=== PATIENT | female | born 1950 | race Caucasian/White ===

== ENCOUNTER 2024-12-04 21:31 | Inpatient (IN) | payer MEDICARE, OTHER, SELFPAY ==
[2024-12-04] VITALS (8 sets, daily range): BP systolic 144–168; BP diastolic 81–108; BMI 27.0
[2024-12-04 14:58] LABS: % Basophils 1.3 % (0-2); % Eosinophils 1.1 % (0-6); % Immature Granulocytes 0.2 % (0-0.5); % Lymphocytes 17.4 % (20.5-51.1); % Monocytes 7.8 % (1.7-9.3); % Neutrophils 72.2 % (42.2-75.2); Absolute Basophils 0.1 10^3/uL (0-0.2); Absolute Eosinophils 0.1 10^3/uL (0-0.7); Absolute Monocytes 0.4 10^3/uL (0.1-0.6); Hematocrit 37.8 % (37.0-47.0); Hemoglobin 11.6 g/dL (12.0-16.0); Mean Corp Hgb Conc. 30.7 g/dL (33.0-37.0); Mean Corpuscular Hgb 27.2 pg (27.0-31.0); Mean Corpuscular Volume 88.7 fL (81.0-99.0); Mean Platelet Volume 9.6 fL (7.4-10.4); Nucleated Red Blood Cells % 0 %; Platelet Count 241 10^3/uL (130-400); Red Blood Cell Count 4.26 10^6/uL (4.20-5.40); Red Cell Dist. Width 16.7 % (11.5-14.5); White Blood Cell Count 5.5 10^3/uL (4.8-10.8)
[2024-12-04 15:26] LABS: ALT (SGPT) 28 U/L (0-35); AST (SGOT) 33 U/L (14-36); Albumin 3.1 g/dl (3.5-5.0); Alkaline Phosphatase 131 U/L (38-126); Blood Urea Nitrogen 39 mg/dl (7-17); Carbon Dioxide 27 mmol/L (22-30); Chloride 103 mmol/L (98-107); Glucose 119 mg/dl (70-99); Sodium 138 mmol/L (135-145); Total Bilirubin 0.6 mg/dl (0.2-1.3); Total Protein 6.1 g/dl (6.3-8.2); eGFR 53.39
[2024-12-04 15:27] LABS: NT-proBNP > 27000 pg/ml; Troponin I 0.054 ng/ml
--- NOTE | 2024-12-04 16:26 | ED.GENMED ---
History of Present Illness
General
Chief Complaint: Swelling
Time Seen by Provider: 12/04/24 15:50
History of Present Illness
History of Present Illness:
Patient presents to the emergency department with edema and shortness of breath. Symptoms have been worsening over the past week. Patient notes she has had a 25 pound weight gain during this time. She notes swelling in bilateral lower extremities
as well as her wrist and abdomen. She reports dyspnea on exertion and orthopnea. She reports falling after climbing the stairs about 2 weeks ago. She she notes that she lost her equilibrium and fell striking her face. There is no loss of
consciousness. She reports adherence to her diuretic
Phy Exam
Physical Exam
Physical Exam:
GENERAL APPEARANCE: NAD, scattered bruising
EYES lids/conjunctiva normal, periorbital echymosis
EARS/NOSE/THROAT Mucous membranes moist, uvula midline without oral pharyngeal erythema, exudate or swelling
HEAD/NECK +JVD
RESPIRATORY respiratory effort normal, speaks in full sentences, no accessory muscle use. bilateral basilar rales
CARDIAC Regular rate and rhythm, edema to lower extremities/wrists/hands/abdomen
ABDOMINAL Soft, distended. non tender, no bruising
MUSCLES/EXTREMITIES bruising to R wrist, there are scattered sores to bilateral lower ext, dressing is clean but weeping wounds
SKIN Warm, pink and dry. No rashes
NEUROLOGICAL Speech is clear and appropriate. Normal level of consciousness. 5/5 strength in all extremities.
PSYCH Normal mood and affect. Judgement/competence is appropriate
Scores
Heart Failure Risk
Heart Failure Risk Score: Yes
History of Stroke or TIA: No
History of intubation for respiratory distress: No
Heart rate on ED arrival >/= 110: No
SaO2 <90% on arrival on room air: No
HR >/=110 during 3min walk test (or too ill to perform test): No
ECG has acute ischemic changes: No
Urea >/=12mmol/L (BUN 33.6mg/dL): Yes
Serum CO2>/=35mmol/L: No
Troponin I or T elevated to SD Level (0.4mg/dL): Yes
NT-proBNP >/=5,000ng/L (5,000pg/ml): Yes
HF Risk Score: 4
Admission Status: HIGH RISK 26.1% Consider SNF treatment or admission to hospital
Course
Orders/Labs/Results
Orders:
Orders
12/04/24 14:41
Electrocardiogram (*1) Urgent
Reason for Study: Shortness of Breath
12/04/24 14:42
EKG- Treatment ONCE
12/04/24 14:49
Complete Blood Count/With Diff Urgent
Comprehensive Metabolic Panel Urgent
NT-proBNP Urgent
Troponin I Urgent
12/04/24 16:12
CR Chest - 2 Views Urgent
Comment:
Reason For Exam: chf
12/04/24 16:24
Furosemide [Lasix] 60 mg IV NOW STA
12/04/24 16:25
CT Head W/o Iv Contrast Urgent
Comment:
Reason For Exam: trauma
12/04/24 16:26
CR Wrist - Right Min 3 Views Urgent
Comment:
Reason For Exam: trauma
12/04/24 20:52
Admit/Transfer Patient As Directed
Co-Sign Provider:
Level of Care: Inpatient admission
Assign to:: Telemetry
Physician / Group: [email or web address]
Diagnosis: acute CHF type unknown, Volume overload
Reason for Telemetry: Acute Heart Failure
Date to Stop Telemetry: 12/07/24
Time to Stop Telemetry: 11:00
Reason for Hospitalization: acute CHF type unknown, Volume overload
Expected length of stay greater than two midnights?: Yes
ELOS- Estimated Length of Stay in days: 3
I certify the patient meets the requirements for IP care: Yes
12/04/24 20:56
Code Status As Directed
Resuscitation Status: Full Code
12/04/24 21:03
Gabapentin [Neurontin] 100 mg PO NOW STA
Gabapentin [Neurontin] 800 mg PO NOW STA
12/07/24 11:00
DC Protocol for Telemetry ONCE
Abnormal Lab Results
12/04/24
14:49
Hgb 11.6 L g/dL
(12.0-16.0)
MCHC 30.7 L g/dL
(33.0-37.0)
RDW 16.7 H %
(11.5-14.5)
Absolute Lymphs (auto) 1.0 L 10^3/uL
(1.2-3.4)
Lymphocytes % 17.4 L %
(20.5-51.1)
BUN 39 H mg/dl
(7-17)
Creatinine 1.1 H mg/dL
(0.6-1.0)
Glucose 119 H mg/dl
(70-99)
Calcium 8.0 L mg/dl
(8.4-10.2)
Alkaline Phosphatase 131 H U/L
(38-126)
Troponin I 0.054 H* ng/ml
Total Protein 6.1 L g/dl
(6.3-8.2)
Albumin 3.1 L g/dl
(3.5-5.0)
12/04/24 14:49
12/04/24 14:49
Vital Signs
Initial and Last Documented VS:
Initial Vital Signs
Temp Pulse Resp BP Pulse Ox
97.7 F 76 18 157/94 96
12/04/24 14:36 12/04/24 14:36 12/04/24 14:36 12/04/24 14:36 12/04/24 14:36
Last Documented Vital Signs
Temp Pulse Resp BP Pulse Ox
97.7 F 83 19 155/95 96
12/04/24 14:36 12/04/24 21:00 12/04/24 21:00 12/04/24 21:00 12/04/24 20:05
*Critical Care Note
Total Time (30-74mins, 75-104mins- exclusive of procedures): Not Applicable
ED Attending Note
ED Attending Note
ED Attending Note:
Patient presents with significant volume overload likely in the setting of congestive heart failure. She has elevated troponin and BNP. She has no chest pain and there is no evidence of prescribed Sgarbossa's criteria on her EGD. That this is
demand related of heart failure unclear precipitating factor. She did have a fall [address] scan head to rule out intracranial trauma
-
Portions of this chart may have been created with voice recognition software.� Occasional wrong word or��sound alike� substitutions may have occurred due to the inherent limitations of voice recognition software.
Discharge Plan
Departure
Patient Disposition: Admit
Date of Disposition: 12/04/24
Time of Disposition: 20:12
Presentation/result/management discussed w/ accepting MD/DO: Hospitalist
Discharge Problem:
Acute exacerbation of CHF (congestive heart failure)
Interventions
Interventions:
*Risk Screen - Suicide Last Done: 12/04/24 14:36
*General Assessment Last Done: 12/04/24 15:53
*Neglect/Abuse Screening Last Done: 12/04/24 15:54
ED- Fall Risk Assessment Last Done: 12/04/24 21:28
*ED COVID-19 Vaccine History Last Done: 12/04/24 15:53
*Nursing Disposition Last Done: 12/04/24 21:28
ED- Cardiac Assessment Last Done: 12/04/24 15:54
ED- Pulmonary Assessment Last Done: 12/04/24 15:53
ED-Skin Assessment Last Done: 12/04/24 15:53
Discharge Date and Time
Discharge Date/Time: 12/04/24 21:51
[2024-12-04] MEDS: LASIX 60 MG IV (16:42)
--- NOTE | 2024-12-04 20:26 | PHANOTE ---
WebMD(12/04/24)-Patient has medication list, but states she does not take everything as prescribed, and has even stopped some medications on the list. Unsure of which medications are not currently taken, left unconfirmed all medications I did
not see filled within the last year.
--- NOTE | 2024-12-04 20:46 | HPS.HSE ---
Family Physician
-
Family Physician: Curry Regalado
Chief Complaint
-
worsening edema and shortness of breath
History of Present Illness
74F HX HTN, DM seen at ER :
- evaluation for worsening edema and shortness of breath
- associated with 25 pound weight gain during this time
- swelling in bilateral lower extremities as well as her wrist and abdomen
- dyspnea on exertion and orthopnea.
- reports falling after climbing the stairs about 2 weeks ago.
- she lost her equilibrium and fell striking her face.
- She reports adherence to her diuretic
Medical History
Past Medical History
Past Medical History: Reports HTN, NIDDM and Psychiatric (depression )
Past Surgical History: Reports Other
Social History
Tobacco: Non-smoker
Alcohol: None
Family History
Family History: Not pertinent
Allergies / Home Medications
Allergies reflects when Allergies were last updated in [facility] [employer].
Home Medications with original date entered in [facility] [employer]
Allergy/Medication List:
Allergies
Allergy/AdvReac Type Severity Reaction Status Date / Time
bacitracin Allergy Itching Verified 12/04/24 14:38
banana Allergy Anaphylaxis Verified 12/04/24 14:38
fentanyl Allergy Itching Verified 12/04/24 14:38
iodine Allergy Itching Verified 12/04/24 14:38
latex Allergy Itching Verified 12/04/24 14:38
melon Allergy Anaphylaxis Verified 12/04/24 14:38
polymyxin B Allergy Itching Verified 12/04/24 14:38
Sulfa (Sulfonamide Allergy Itching Verified 12/04/24 14:38
Antibiotics)
sulfamethoxazole Allergy Itching Verified 12/04/24 14:38
trimethoprim Allergy Itching Verified 12/04/24 14:38
vancomycin Allergy Itching Verified 12/04/24 14:38
Home Medications
citalopram 20 mg tablet 20 mg PO DAILY ##30 04/28/16
ergocalciferol (vitamin D2) 1,250 mcg (50,000 unit) capsule 50,000 units PO HERMAN ##4 04/28/16
sitagliptin phosphate 100 mg tablet (Januvia) 100 mg PO DAILY ##30 04/28/16
acetaminophen 650 mg tablet,extended release (Tylenol Arthritis Pain) 1,300 mg PO Q8H 12/04/24
albuterol sulfate 90 mcg/actuation aerosol inhaler 2 puff inhalation R Q6HPRN PRN sob 12/04/24
ascorbic acid (vitamin C) 500 mg tablet (Vitamin C) 500 mg PO DAILY 12/04/24
budesonide 0.5 mg/2 mL suspension for nebulization (Pulmicort) 0.5 mg inhalation R Q6HPRN PRN sob 12/04/24
bumetanide 1 mg tablet 1 mg PO BID 12/04/24
calcium carbonate (Calcium 600) 600 mg PO BID 12/04/24
carvedilol 3.125 mg tablet 3.125 mg PO BID 12/04/24
cephalexin 500 mg capsule 500 mg PO TID 12/04/24
cholecalciferol (vitamin D3) 25 mcg (1,000 unit) tablet (Vitamin D3) 25 mcg PO DAILY 12/04/24
cyclosporine 0.05 % eye drops in a dropperette (Restasis) 1 drops BOTH EYES BID 12/04/24
dicyclomine 10 mg capsule 10 mg PO ACHS 12/04/24
doxycycline hyclate 100 mg tablet 100 mg PO BID 12/04/24
esomeprazole magnesium 40 mg capsule,delayed release (Nexium) 40 mg PO DAILY 12/04/24
fluticasone propionate 50 mcg/actuation nasal spray,suspension 1 spray intranasal DAILYPRN PRN allergies 12/04/24
gabapentin 800 mg tablet 800 mg PO QID 12/04/24
levocetirizine 5 mg tablet (Xyzal) 5 mg PO HS 12/04/24
loperamide 2 mg capsule 2 mg PO Q4HPRN PRN diarrhea 12/04/24
losartan 100 mg tablet 100 mg PO DAILY 12/04/24
magnesium oxide 250 mg PO DAILY 12/04/24
omeprazole magnesium 20 mg tablet,delayed release (Prilosec OTC) 20 mg PO DAILY 12/04/24
ondansetron HCl 4 mg tablet 4 mg PO Q8HPRN PRN nausea 12/04/24
sacubitril 49 mg-valsartan 51 mg tablet (Entresto) 1 tab PO DAILY 12/04/24
tizanidine 2 mg tablet 2 mg PO TIDPRN PRN muscle spasms 12/04/24
tolterodine 2 mg capsule,extended release 24 hr 2 mg PO BID 12/04/24
Review of Systems
-
EENT: Reports No Symptoms
Respiratory: Reports No Symptoms
Cardiac: Reports See HPI
Abdomen/GI: Reports No Symptoms
: Reports No Symptoms
Musculoskeletal: Reports See HPI and Edema
Skin: Reports No Symptoms
Neurological: Reports No Symptoms
Endocrine: Reports No Symptoms
Hematologic/Lymphatic: Reports No Symptoms
Psych: Reports No Symptoms
Physical Exam
Vital Signs
Vital Signs
Temp Pulse Resp BP Pulse Ox
97.7 F 79 20 163/89 96
12/04/24 14:36 12/04/24 20:01 12/04/24 20:01 12/04/24 20:01 12/04/24 20:05
Physical Exam
General: Well Developed, Well Nourished and No Apparent Distress
HEENT: NormoCephalic, Moist mucous membranes and Atraumatic
Respiratory: Clear
Cardiac: S1/S2 and Regular Rhythm; No Murmur or Rub
GI: Soft, Non Tender, Non Distended and Normal Bowel Sounds; No Organomegaly
Rectal: Deferred by Provider
Musculoskeletal: Edema, Right Upper Extremity and Edema, Left Lower Extremity
Skin: No Rash
Neuro: Nonfocal/grossly intact
Laboratory Results
-
12/04/24 14:49
12/04/24 14:49
Laboratory Results
Total Bilirubin 0.6 mg/dl (0.2-1.3) 12/04/24 14:49
AST 33 U/L (14-36) 12/04/24 14:49
ALT 28 U/L (0-35) 12/04/24 14:49
Alkaline Phosphatase 131 U/L (38-126) H 12/04/24 14:49
Troponin I 0.054 ng/ml H* 12/04/24 14:49
Data Reviewed
-
Medical Tests (Nuc Med, Echo, EKG etc): Report Reviewed by me
Lab Data: Labs Reviewed by me
Impression/Plan
-
Reviewed VS: BP 165/90 96% on RA
Data
Hgb 11.6
BUN 39
Cr 1.1
eGFR 54
TPNI 0.054
proBNP > 27 K
NO PRIOR hospitalist admission:
ASSESSMENT & PLAN
Acute CHF type unknown
- cont. IV lasix 40 BID
- cont Entresto
- cont. Losartan
- daily Wt, IOS
- Dailt BMP
- ECHO in AM
- DCA acrd consult
EZEKIEL suspect cardiorenal syndrome
- Observe Cr with IV Diuresis
DMT2
- cont. Januvia
- add IS low
DVT Px: LMWH
Code: Full
IP TLM
[2024-12-04] MEDS: NEURONTIN 800 MG PO (21:22)
[2024-12-04] MEDS: NEURONTIN 100 MG PO (21:22)
--- NOTE | 2024-12-04 22:00 | PTCARENOTE ---
Pt arrived to [facility] from ED, pullover assist x3. Pt is AAOx3, bed alarm placed d/t recent fall history. Daughter Linh and patient updated on plan of care at bedside. VSS. Pt had a purewick in the ED and is requesting another one to be placed.
This RN educated the pt on the risk of developing a UTI and attempted to encourage the pt to use a bedpan instead since she is capable of turning, or attempting to ambulate to a bedside commode since pt states she knows when she needs to void 'most
of the time'. Pt is refusing to use a bedpan and says that 'you don't get a UTI from a PureWick, that's the internal catheters' despite educating the pt that this is incorrect and she can develop a UTI with a purewick. Purewick placed by this RN
d/t pt's refusal to use a bedpan or BSC at this time.
--- NOTE | 2024-12-04 22:30 | PTCARENOTE ---
Patient's dashboard indicates that the patient has a history of MRSA. This RN discussed history of MRSA with patient, patient reports that she does not remember having a history of MRSA but that 'maybe I did have it, I don't remember'. This RN
notified nursing supervisor contingents Nery Holley who reports that patient had a negative swab in 2016 and does not have a history of MRSA. Will keep patient under standard precautions.
[2024-12-04 23:48] LABS: Glucose - Point of Care 171 mg/dl (70-99)
[2024-12-05] MEDS: TYLENOL 1000 MG PO ×3 (00:10→17:20)
[2024-12-05] MEDS: KEFLEX 500 MG PO ×4 (00:10→21:58)
[2024-12-05] MEDS: VIBRAMYCIN 100 MG PO ×3 (00:21→20:55)
[2024-12-05 03:05] VITALS: BP 147/84
[2024-12-05 06:00] VITALS: BMI 26.8
[2024-12-05 07:19] LABS: Hematocrit 35.5 % (37.0-47.0); Hemoglobin 11.2 g/dL (12.0-16.0); Mean Corp Hgb Conc. 31.5 g/dL (33.0-37.0); Mean Corpuscular Hgb 27.2 pg (27.0-31.0); Mean Corpuscular Volume 86.2 fL (81.0-99.0); Mean Platelet Volume 10.2 fL (7.4-10.4); Platelet Count 225 10^3/uL (130-400); Red Blood Cell Count 4.12 10^6/uL (4.20-5.40); Red Cell Dist. Width 16.6 % (11.5-14.5); White Blood Cell Count 5.7 10^3/uL (4.8-10.8)
[2024-12-05 07:30] VITALS: BP 160/89
[2024-12-05 07:41] LABS: Blood Urea Nitrogen 43 mg/dl (7-17); Carbon Dioxide 25 mmol/L (22-30); Chloride 108 mmol/L (98-107); Estimated Creatinine Clearance 36 ml/min; Glucose 122 mg/dl (70-99); Potassium 4.2 mmol/L (3.5-5.1); Sodium 139 mmol/L (135-145); eGFR 43.69
[2024-12-05 07:44] LABS: Glucose - Point of Care 137 mg/dl (70-99)
[2024-12-05 09:08] LABS: Glycohemoglobin (HgbA1c) 7.1 % (4.0-5.6)
[2024-12-05 09:53] LABS: Troponin I 0.065 ng/ml
[2024-12-05] MEDS: NOVOLOG FLEXPEN-LOW RESISTANCE SC ×2 (10:32→17:08)
[2024-12-05] MEDS: LASIX 40 MG IV ×3 (10:38→17:15)
[2024-12-05] MEDS: FLUSH (NSS) 1 FLUSH IV ×2 (10:39→17:17)
[2024-12-05] MEDS: JANUVIA 100 MG PO (10:39)
[2024-12-05] MEDS: NEURONTIN 300 MG PO ×3 (10:39→21:57)
[2024-12-05] MEDS: MAGNESIUM OXIDE 250 MG PO (10:40)
[2024-12-05] MEDS: PROTONIX 40 MG PO (10:40)
[2024-12-05] MEDS: CELEXA 20 MG PO (10:41)
[2024-12-05] MEDS: COREG 3.125 MG PO ×2 (10:42→20:55)
[2024-12-05] MEDS: BENTYL PO (10:43)
[2024-12-05] MEDS: ENTRESTO 49 MG/51 MG 1 TAB PO (10:47)
[2024-12-05] MEDS: RESTASIS 0.05% OPHTHALMIC EMULSION 1 DROPS BOTH EYES ×2 (10:48→20:55)
[2024-12-05 11:00] VITALS: BP 158/94
--- NOTE | 2024-12-05 11:40 | W.PN.HOSP.TC ---
Today's Communication/Plan
-
Monitor vitals
See plan
Continue with IV diuresis
Monitor renal function
Discussed with daughter over the phone
PT/OT
Echo
Will need ICD interrogated
Cardiology following
Assessment / Plan
Assessment / Plan
General: Well Developed, Well Nourished and No Apparent Distress
HEENT: NormoCephalic, Moist mucous membranes and Atraumatic
Respiratory: Clear
Cardiac: S1/S2 and Regular Rhythm; No Murmur or Rub
GI: Soft, Non Tender, Non Distended and Normal Bowel Sounds
Musculoskeletal: Edema, Right Upper Extremity and Edema, Left Lower Extremity
Neuro: Nonfocal/grossly intact
Suspect acute on chronic CHF, unclear etiology. Unknown EF
Continue with IV Lasix
Continue Entresto
Continue Coreg
Per patient she was on Bumex daily at home
Patient is a poor historian
Will need to interrogate ICD device, per patient he was placed few years ago
Check echo
she follows with Dr Willis from [facility] cardiology
Renal insufficiency
per daughter she does have CKD stage 3b; on 11/19 cr was 1.04 and february of 2023 it was 1.3
Monitor renal function
Elevated troponin, likely secondary to nonischemic myocardial injury
Continue to trend troponin
Monitor
hx if ICD in 2022 at [place]
cardiology to interrogate device
recent LE cellulitis
on keflex and doxy; last day 12/07
GERD
Protonix
Diabetes mellitus
Insulin sliding scale, Accu-Cheks
a1C 7.1
Depression
Continue Celexa
DVT prophylaxis
Lovenox
Full code
I spent a total of 52 minutes with the patient or on the floor. More than 50% of this time involved counseling and coordination of care.
Anticipated Discharge: > 48 hours
Subjective/Interval History
-
Date of Service: December 05, 2024
denies chest pain
Objective Data
-
Labs:
Laboratory Results
12/05/24
06:46
WBC 5.7
Hgb 11.2 L
Hct 35.5 L
Plt Count 225
Sodium 139
Potassium 4.2
Chloride 108 H
Carbon Dioxide 25
BUN 43 H
Creatinine 1.3 H
Glucose 122 H
Calcium 8.0 L
Vital Signs:
Vital Signs
Temp Pulse Resp BP Pulse Ox
98.6 F 74 16 160/89 94
12/05/24 07:30 12/05/24 07:30 12/05/24 07:30 12/05/24 07:30 12/05/24 07:30
I&O
12/04/24 12/05/24 12/06/24
06:59 06:59 06:59
Intake Total 480 / 480
Output Total 1820 / 1820
Balance -1340 / -1340
[2024-12-05 11:46] VITALS: BMI 26.8
[2024-12-05 11:51] LABS: Glucose - Point of Care 229 mg/dl (70-99)
[2024-12-05] MEDS: BENTYL 10 MG PO ×3 (12:29→21:57)
--- NOTE | 2024-12-05 12:50 | CON.CAR ---
Addendum entered and electronically signed by Jimena Thrasher MD 12/05/24 16:45:
I saw and examined the patient.
The Digital Publishing Specialist's note was reviewed and I agree with the note.
Comment: Discussed with patient and her daughter at great length at the bedside. Usually followed at [place]. She presents with heart failure with reduced ejection fraction and volume overload. According to the patient she does not have coronary
artery disease but does not recall ischemic assessment (does not recall cath or stress test). Records pending. She tells me that about a month ago she was seen by her usual ticket broker at [place] and they wanted to admit her to the hospital for
volume overload but she declined. She feels her weight is up at least 20 pounds and she has significant volume overload/anasarca. She tells me her ejection fraction has been decreased previously. We have requested most recent records including
echo. It appears that recently losartan was changed to Entresto. She previously stopped SGLT2 inhibitor because of 'eye dryness'. She does not appear to be on Aldactone.
Echocardiogram today with ejection fraction similar to 01/2024 25 to 30% at best.
Heart failure with reduced ejection fraction, acute on chronic with severe volume overload.
Continue IV Lasix but will give another 40 mg of IV Lasix now.
Follow input/output/daily weights. Heart failure team consult.
Continue carvedilol and Entresto. Eventually consider Aldactone
Sodium and fluid restricted diet
Once euvolemic consider right and left heart catheterization there is no clear evidence of prior ischemic assessment and want to rule out ischemic etiology of cardiomyopathy (interestingly her mother had heart failure)
Biventricular ICD device interrogation stable with no arrhythmias but significant volume overload
Recent fall not arrhythmia related healing bruising on her face defer to hospitalist service
Diabetes treatment per primary service. Eventually reassess as to whether she would be agreeable to SGLT2 inhibitor
Watch telemetry.
Eventual sleep apnea testing
Original Note:
Consultation
Consultation Request
Date/Time Consultation Performed: 12/05/24
Requesting Provider: Dr. Alvarez
Performing Provider: Essie Hughes PA-C for Dr. Jimena Thrasher
Reason for Consultation: CHF
Medical History
-
Chief Complaint: SOB, weight gain
History of Present Illness:
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
overload. By review of outpatient notes, her primary ticket broker had started her on bumetanide, Jardiance, and was transition from losartan to Entresto. She stopped taking Jardiance due to eye dryness. The beginning of November she had an
episode where she fell after coming up the stairs into the kitchen and bruised her face. She denies loss of consciousness with the event. She reports weight gain of 25 pounds with significant bilateral lower extremity edema with weeping,
orthopnea. At office visit 2 her Bumex dose was increased to 1 mg twice daily, however patient tells me she has only been taking 1 mg daily. In office visit 2 she was recommended going to the emergency room but she refused. By last
echocardiogram 02/02/2024, EF 20 to 25% with moderate MR, moderate TR, PAP 55 to 60 mmHg. proBNP on arrival greater than 27,000. Cardiology consulted for assistance with CHF management.
PMH:
Chronic heart failure with reduced EF
CKD stage III
High-grade AV block s/p PPM
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
Hypertension
Hyperlipidemia
Tke-xfbztwy-wjnnwhgfa diabetes type 2
Neuropathy
GERD
Past Medical History
Past Medical History: Other (in HPI)
Social History
Tobacco: Former Smoker
Living: Alone
Employment: Retired
Family History
Family History: Reviewed & Not Pertinent
Allergies / Home Medications
Allergy/AdvReac Type Severity Reaction Status Date / Time
coconut Allergy Severe Anaphylaxis Verified 12/04/24 22:41
kiwi Allergy Severe Anaphylaxis Verified 12/04/24 22:41
bacitracin Allergy Itching Verified 12/04/24 14:38
banana Allergy Anaphylaxis Verified 12/04/24 14:38
fentanyl Allergy Itching Verified 12/04/24 14:38
iodine Allergy Itching Verified 12/04/24 14:38
latex Allergy Itching Verified 12/04/24 14:38
melon Allergy Anaphylaxis Verified 12/04/24 14:38
polymyxin B Allergy Itching Verified 12/04/24 14:38
Sulfa (Sulfonamide Allergy Itching Verified 12/04/24 14:38
Antibiotics)
sulfamethoxazole Allergy Itching Verified 12/04/24 14:38
trimethoprim Allergy Itching Verified 12/04/24 14:38
vancomycin Allergy Itching Verified 12/04/24 14:38
�Medication �Instructions �Recorded �Confirmed �Type
citalopram 20 mg tablet 20 mg PO DAILY ##30 04/28/16 12/05/24 Rx
ergocalciferol (vitamin D2) 1,250 50,000 units PO HERMAN ##4 04/28/16 Rx
mcg (50,000 unit) capsule
sitagliptin phosphate 100 mg 100 mg PO DAILY ##30 04/28/16 12/05/24 Rx
tablet (Januvia)
acetaminophen 650 mg 1,300 mg PO Q8H Pain 12/04/24 12/04/24 History
tablet,extended release (Tylenol
Arthritis Pain)
albuterol sulfate 90 mcg/actuation 2 puff inhalation R Q6HPRN PRN sob 12/04/24 12/04/24 History
aerosol inhaler
ascorbic acid (vitamin C) 500 mg 500 mg PO DAILY Supplement 12/04/24 12/04/24 History
tablet (Vitamin C)
budesonide 0.5 mg/2 mL suspension 0.5 mg inhalation R Q6HPRN PRN sob 12/04/24 12/04/24 History
for nebulization (Pulmicort)
bumetanide 1 mg tablet 1 mg PO BID Fluid 12/04/24 12/04/24 History
Retention/Swelling
calcium carbonate (Calcium 600) 600 mg PO BID Supplement 12/04/24 12/04/24 History
carvedilol 3.125 mg tablet 3.125 mg PO BID Blood Pressure 12/04/24 12/04/24 History
cephalexin 500 mg capsule 500 mg PO TID Infection 12/04/24 12/04/24 History
cholecalciferol (vitamin D3) 25 25 mcg PO DAILY Supplement 12/04/24 12/04/24 History
mcg (1,000 unit) tablet (Vitamin
D3)
cyclosporine 0.05 % eye drops in a 1 drops BOTH EYES BID Eye Condition 12/04/24 History
dropperette (Restasis)
dicyclomine 10 mg capsule 10 mg PO ACHS 12/04/24 12/04/24 History
doxycycline hyclate 100 mg tablet 100 mg PO BID Infection 12/04/24 12/04/24 History
esomeprazole magnesium 40 mg 40 mg PO DAILY Gastrointestinal 12/04/24 History
capsule,delayed release (Nexium) Issue
fluticasone propionate 50 1 spray intranasal DAILYPRN PRN 12/04/24 12/04/24 History
mcg/actuation nasal allergies
spray,suspension
gabapentin 800 mg tablet 800 mg PO QID Neurological 12/04/24 12/04/24 History
Condition
levocetirizine 5 mg tablet (Xyzal) 5 mg PO HS Allergies 12/04/24 12/04/24 History
loperamide 2 mg capsule 2 mg PO Q4HPRN PRN diarrhea 12/04/24 12/04/24 History
losartan 100 mg tablet 100 mg PO DAILY Blood Pressure 12/04/24 History
magnesium oxide 250 mg PO DAILY Supplement 12/04/24 12/04/24 History
omeprazole magnesium 20 mg 20 mg PO DAILY Gastrointestinal 12/04/24 12/04/24 History
tablet,delayed release (Prilosec Issue
OTC)
ondansetron HCl 4 mg tablet 4 mg PO Q8HPRN PRN nausea 12/04/24 12/04/24 History
sacubitril 49 mg-valsartan 51 mg 1 tab PO DAILY Heart 12/04/24 12/04/24 History
tablet (Entresto) Disease/Condition
tizanidine 2 mg tablet 2 mg PO TIDPRN PRN muscle spasms 12/04/24 12/04/24 History
tolterodine 2 mg capsule,extended 2 mg PO BID 12/04/24 12/04/24 History
release 24 hr
Review of Systems
-
History Source: Patient
All other systems: Negative unless noted
Physical Exam
Vital Signs
Temp Pulse Resp BP Pulse Ox
98.7 F 73 22 158/94 97
12/05/24 11:00 12/05/24 11:00 12/05/24 11:00 12/05/24 11:00 12/05/24 11:00
Lab Results
12/05/24 06:46
12/05/24 06:46
Troponin I 0.065 ng/ml H* 12/05/24 08:30
Jbj-W-Ulwnfbazeoo Pept > 76316 pg/ml 12/04/24 14:49
Physical Exam
General: No Apparent Distress, Comfortable and Other (sitting in chair. )
HEENT: Normocephalic, Anicteric, Moist Mucous Membranes and Other (facial ecchymoses)
Respiratory: Crackles
Cardiac: S1/S2, Regular Rhythm and Murmur
GI: Soft, Non Tender, Normal Bowel Sounds and Distended
Musculoskeletal: No Clubbing, No Cyanosis and Edema (with dressings to B/L LE )
Skin: Warm and Dry
Neuro: AO x 3
Impression / Plan
-
Primary Water Project Engineer: Dr. Thorpe of [facility]
Assessment:
Presentation with weight gain, orthopnea, LE edema
Acute on chronic HFrEF
Elevated troponin
Recent fall with facial ecchymoses
CKD stage IIIB
High-grade AV block s/p PPM
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
Hypertension
Hyperlipidemia
Gil-dawujlz-dxappqokx diabetes type 2
Neuropathy
GERD
Depression
ECHO 02/02/24: EF 20 to 25%, grade 2 diastolic dysfunction, basal miller move best with moderate hypokinesis, rest of wall severely hypokinetic, mild concentric LVH, moderate MR, moderate TR, PAP 55 to 60 mmHg, mild AR, mildly dilated ascending aorta
Plan:
-Patient presents to [facility] for evaluation of 25 pound weight gain, shortness of breath, orthopnea, lower extremity edema which has been going on for last several weeks. Unclear if she was taking her outpatient Bumex correctly, as
appears should have been on Bumex 1 mg twice daily, however states she was only taking it once a day
-proBNP greater than 27,000
-Chest x-ray read as cardiomegaly, no clear pulmonary edema, evidence of atelectasis versus pneumonia
-Records obtained and reviewed from primary ticket broker including last echocardiogram 02/02/2024, last EKG and office visit 11/20/2024, last blood work dated 03/15/2024.
-She is currently receiving IV Lasix 40 mg twice daily. Creatinine uptrending, 1.3 on 12/05, follow with diuresis.
-She has known history of cardiomyopathy with EF 20-25% by last echo 02/02/2024. For repeat echocardiogram this admission
-Unclear if has ever undergone ischemic evaluation, may consider this admission once improved from volume standpoint
-Trend troponins to peak, no chest pain. Suspected nonischemic myocardial injury in setting of acute CHF, however in setting of known cardiomyopathy, with risk factors, may consider inpatient ischemic evaluation
-Continue guideline directed medical therapy as able. As outpatient is on Coreg and Entresto, continue. Consider addition of Aldactone and SGLT2 inhibitor if no contraindication
-in av paced rhythm on tele with 1 6-beat run of NSVT. follow K/mag
-CHF education
-PT evaluation
Data Reviewed
-
EKG: Tracing Personally Visualized and interpreted
Radiology: Report Reviewed by me
Medical Tests (Nuc Med, Echo etc): Report Reviewed by me
Labs: Labs Reviewed by me
Old Records: Requested and Reviewed
[2024-12-05] MEDS: NOVOLOG FLEXPEN-LOW RESISTANCE 2 UNITS SC (12:58)
--- NOTE | 2024-12-05 13:58 | CM ---
Made aware by Lorraine at [facility] that patient on 11/28/24 had expressed suicidal ideations and admitted to that she had a plan, Mobile Crisis Unit was called and did go out to the house however patient would not let them in, per Lorraine on Monday
12/03/24 Adult Protective Services went out to the home along with the VN to suggest to patient that she go to the hospital which she refused. Lorraine also stated patient's home is cluttered and she has been non-compliant with her medications , including
antibiotics that she was been prescribed. Update to Attending and Nurse Vegetable Thinner on regarding recent suicidal ideations with a plan on 11/28/24. Attending to order psychiatric consult.
--- NOTE | 2024-12-05 14:10 | W.CARD.DEVCH ---
Cardiac Device Check
-
Device: Implanted Cardioverter-Defibrillator
Foundry Worker Apprentice: Medtronic
The patient's device was interrogated with assistance of the device administrative representative. The device had normal function. No arrhythmias noted, volume overloaded. 5 years battery life remaining.
--- NOTE | 2024-12-05 14:40 | WOUNDNOTE ---
RIGHT POSTERIOR LEG
--- NOTE | 2024-12-05 14:41 | WOUNDNOTE ---
LEFT MEDIAL ANKLE
--- NOTE | 2024-12-05 14:41 | WOUNDNOTE ---
RIGHT ANTERIOR LEG
--- NOTE | 2024-12-05 14:42 | WOUNDNOTE ---
LEFT LATERAL LEG
--- NOTE | 2024-12-05 14:42 | WOUNDNOTE ---
LEFT ANTERIOR LEG WOUND
[2024-12-05 14:50] LABS: Troponin I 0.065 ng/ml
[2024-12-05 15:00] VITALS: BP 128/88
--- NOTE | 2024-12-05 15:01 | WOUNDNOTE ---
WO RN note: Patient admitted with SOB and weight gain
See H&P for complete history.
PMH: Diabetes, recent cellulitis, CKD stage 3.
Wound Location and type/assessment: Patient admitted with multiple LE venous wounds and stage 1 sacral wound. Patient lives alone and ambulates with walker. She said she sits most of the day and uses purwick at night at home. She has had home care
to address LE venous wounds for about 3 weeks. Wound care is completed 2 x week and patient reports the dressings are always wet. Both LE with +2-+3 LE edema and + audible pedal pulses. Wound on left anterior leg is superficial and skin with dry
with venous stasis changes. Left posterior leg with open venous appearing wound with macerated edges. Patient reports she cannot wear compression because she cannot put it on herself daily. Left medial ankle with necrotic yellow wound base. Sacrum
with stage 1 PI, non-blanchable red skin. No open areas on sacrum. Heels intact. Patient reports sleeping and sitting in recliner at home.
Appetite: Reports poor
Pressure redistribution devices in place: Air cushion provided at time of assessment as patient was sitting in chair. Static air overlay ordered and will be added to bed. Turning schedule.
Plan: Local wound care provided to LE with Vashe wound lens cleaner, adaptic, alginate, ABD and maci. Barrier ointment applied to buttocks and sacrum as patient is incontinent of urine and stool and is currently being diuresed. KALPESH applied to bilateral
LE. Adhesive foam applied to heels. Patient and daughter state she is homebound and cannot get out of house for appointment to [facility]. Will confirm orders with hospitalist and update nurse. Updated care plan and will follow as needed.
Note to case management of equipment requested for discharge:
Recommend follow up at wound care center upon discharge.
--- NOTE | 2024-12-05 15:29 | CM ---
Pt seen bedside w/ daughter. Initial assessment completed. Admitted for worsening edema and shortness of breath.
Pt reports that she lives alone in a split level home w/ 3 levels- no steps to enter. Pt reports she uses a RW and cane to ambulate. Pt states she has a neb machine but only uses it when she needs it, has shower chair in the home as well.
Pt reports that she was at [facility] in the past. Pt shared she has VN through [facility]
Address, points of contact and insurance verified
PCP: Dr. Curry Regalado
Pharmacy: [facility]
PT/OT attempted to evaluate pt today, pt +troponins and will re-attempt at another time.
CM spoke w/ Meme/[facility] liaison as pt is current w/ [facility]. CM was informed that [facility] will not be accepting pt back as pt has been non-compliant w/ her medications prescribed, home is cluttered, pt's refusal to see her PCP by 3/4 for them to
sign off on services. Pt has expressed suicidal ideations w/ a plan to VN, APS and crisis was called, however, pt refused to let them enter her home or go to the hospital. CM director was made aware who updated nurse animal rides manager and attending
hospitalist.
Psych consult ordered
Plan: CM will cont to follow hospital course
--- NOTE | 2024-12-05 16:25 | CON.MD ---
Consultation - Medical
-
74 yr old F w/ PMH of Htn, dm, chf, icd in 2022, presenting with worsening edema & SOB. Pt with bruising on face from fall about 2 weeks ago as well. Psychiatry consulted due to concerns of SI with plan reported by one of pts visiting nurses.
It seems that pt made a passive statement to her VN who then reported it to the center for the aging. They proceeded to send mobile crisis to pts home but she did not let them in and told them to not come back again (though they came twice according
to her) - pt says that she was embarrased that mobile crisis could be seen by her neighbors and so did not let them in. Pt states that she said to VN that there are times she feels depressed because of physical limitations and 'if I were to suddenly
go tomorrow I wouldn't mind'. 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 Pt lives in a split level and is unable to meaningfully access much of her belongings, which prevents her
from leaving the home as much and led to not seeing her family for the holidays. She acknowledges that she needs to move into a 1 floor home which she says she previously struggled to accept. She denies acute depression outside of appropriate
feelings of sadness for an elderly individual grappling with significant QOL changes. Denies significant prior psychiatric hx as well.
Spoke to pts daughter outside of room as well (Opal Herman [phone]) who corroborated the above. She denies pt being suicidal nor of this previously being a concern. Daughter does note however that aside from living in a split level home, pt
struggles with hoarding which has been the predominant barrier to moving her into a more appropriate environment. Pt has been resistant to attempts to help clear her belongings though has been acknowledging the need to do so. To note, pt admitted to
myself that she has too many belongings though minimizing the extent of this.
MSE: calm,cooperative,pleasant,speech is normal rate & rhythm,,mood is OK, affect is appropriate & congruent to mood, thought process is logical & goal directed, thought content: denies SI/HI/AVH/delusions. AAOx3. Memory not formally tested. Insight
fair. Judgement fair
Adjustment d/o with concerns of possible hoarding as reported by pts daughter
No acute psychiatric intervention warranted, no evidence of acute SI - if hoarding is indeed a barrier, pt would benefit from support services as hoarding is generally a gradual and lengthy treatment process that leans heavily on therapy/cbt
- I am aware of [facility] [phone] which offers a hoarding program in [facility], possibly [place] as well but this [place]
- will discuss with CM options available to pt
- discontinuing 1:1 as pt not currently posing acute safety threat to herself
[2024-12-05 17:01] LABS: Glucose - Point of Care 100 mg/dl (70-99)
[2024-12-05] MEDS: LOVENOX 40 MG SC (17:17)
[2024-12-05 19:22] LABS: Urine Albumin 3+ (Neg - Trace); Urine Bilirubin Negative (Negative); Urine Character Clear (Clear); Urine Color Yellow; Urine Glucose Negative (Negative); Urine Ketone Negative (Negative); Urine Leukocyte Negative (Negative); Urine Nitrite Negative (Negative); Urine Occult Blood Negative (Negative); Urine Urobilinogen Negative (Neg - 1+)
[2024-12-05 19:43] VITALS: BP 165/93
[2024-12-05 19:44] LABS: Urine Red Blood Cell 0-2 /HPF (0-2)
[2024-12-05 19:45] LABS: Urine Bacteria Few (Negative); Urine White Cell 0-2 /HPF (0-5)
[2024-12-05 21:13] LABS: Troponin I 0.059 ng/ml
[2024-12-05 21:50] LABS: Glucose - Point of Care 88 mg/dl (70-99)
[2024-12-05] MEDS: ZYRTEC PO (21:58)
[2024-12-05] MEDS: DETROL LA 2 MG PO (21:59)
[2024-12-05 23:15] VITALS: BP 152/78
[2024-12-06] VITALS (8 sets, daily range): BP systolic 130–159; BP diastolic 73–99; PULSE 70–72; O2SAT 94; BMI 26.4
[2024-12-06] MEDS: TYLENOL 1000 MG PO ×2 (02:38→19:56)
[2024-12-06] MEDS: ROXICODONE 5 MG PO ×2 (07:18→21:45)
[2024-12-06 07:24] LABS: Glucose - Point of Care 94 mg/dl (70-99)
[2024-12-06] MEDS: NOVOLOG FLEXPEN-LOW RESISTANCE SC ×3 (07:25→17:09)
[2024-12-06 07:42] LABS: Hematocrit 34.6 % (37.0-47.0); Hemoglobin 11.1 g/dL (12.0-16.0); Mean Corp Hgb Conc. 32.1 g/dL (33.0-37.0); Mean Corpuscular Hgb 27.5 pg (27.0-31.0); Mean Corpuscular Volume 85.9 fL (81.0-99.0); Mean Platelet Volume 10.3 fL (7.4-10.4); Platelet Count 221 10^3/uL (130-400); Red Blood Cell Count 4.03 10^6/uL (4.20-5.40); Red Cell Dist. Width 16.5 % (11.5-14.5); White Blood Cell Count 5.3 10^3/uL (4.8-10.8)
[2024-12-06 08:24] LABS: Blood Urea Nitrogen 44 mg/dl (7-17); Calcium 7.8 mg/dl (8.4-10.2); Carbon Dioxide 29 mmol/L (22-30); Chloride 103 mmol/L (98-107); Estimated Creatinine Clearance 32 ml/min; Glucose 89 mg/dl (70-99); Sodium 136 mmol/L (135-145); eGFR 43.69
[2024-12-06] MEDS: MAGNESIUM OXIDE 250 MG PO (08:47)
[2024-12-06] MEDS: ENTRESTO 49 MG/51 MG 1 TAB PO (08:48)
[2024-12-06] MEDS: VIBRAMYCIN 100 MG PO ×2 (08:48→19:56)
[2024-12-06] MEDS: PROTONIX 40 MG PO (08:48)
[2024-12-06] MEDS: DETROL LA 2 MG PO ×2 (08:48→19:56)
[2024-12-06] MEDS: LASIX 40 MG IV ×2 (08:48→16:25)
[2024-12-06] MEDS: NEURONTIN 300 MG PO ×3 (08:48→21:45)
--- NOTE | 2024-12-06 08:48 | PN.CDI ---
CDI
- -
CDI:
Physician Documentation Request
Admit Date: 12/04/24 21:31
Dear Doctor Antonio,
Please review the following and provide your response in the progress notes.
Clinical Indicators:
12/05/24 15:01 - Wound Note
#Wound Location and type/assessment:
#...Sacrum with stage 1 PI, non-blanchable red skin. No open areas on sacrum.
Physician documentation of the type and location of wounds is required for compliant documentation. Based on the above clinical findings and your assessment, please provide the following in your progress note:
Yes, sacrum stage 1 pressure injury, POA
No, sacrum stage 1 pressure injury
Other (please specify)
Location of the ulcer/wound, including laterality.
Type (etiology) of ulcer/wound:
- Diabetic ulcer
- Arterial (ischemic) ulcer
- Traumatic wound
- Venous stasis ulcer
- Pressure (decubitus) ulcer
- Other(please specify)
For a pressure ulcer, please also include the stage* of the ulcer:
- Stage 1 - Skin intact, non-blanchable redness
- Stage 2 - Partial thickness loss of dermis, includes intact or open blister
- Stage 3 - Full thickness tissue not including bone, tendon or muscle
- Stage 4 - Full thickness tissue loss, including exposed bone, tendon or muscle
- Unstageable - Full thickness loss in which the base of the ulcer is covered by slough (yellow, ro, mendoza, green or brown) and/or eschar (ro, brown or black) in the wound bed.
Use of terms such as suspected, likely, concern for, or probable (associated with a specific diagnosis that is being evaluated, monitored, or treated as if it exists) are acceptable and can be coded in the inpatient setting, when documented at the
time of discharge.
Thank you,
Crystal Francisco RN BSN CCDS
CDI Specialist
please contact via tiger text
Please use your independent medical judgment in providing your response.
*Source: National Pressure Ulcer Advisory Panel (NPUAP)
[2024-12-06] MEDS: CELEXA 20 MG PO (08:49)
[2024-12-06] MEDS: COREG 3.125 MG PO (08:49)
[2024-12-06] MEDS: RESTASIS 0.05% OPHTHALMIC EMULSION 1 DROPS BOTH EYES ×2 (08:49→19:59)
[2024-12-06] MEDS: BENTYL 10 MG PO ×4 (08:49→21:45)
[2024-12-06] MEDS: HYDROPHOR 1 APPLIC TOPICAL (08:49)
[2024-12-06] MEDS: KEFLEX 500 MG PO ×3 (08:49→21:44)
[2024-12-06] MEDS: JANUVIA 100 MG PO (08:49)
--- NOTE | 2024-12-06 10:59 | W.PN.HOSP.TC ---
Today's Communication/Plan
-
Monitor vital signs see plan
Continue with IV diuresis
Continue with Entresto, Coreg
PT/OT
Assessment / Plan
Assessment / Plan
General: Well Developed, Well Nourished and No Apparent Distress
HEENT: NormoCephalic, Moist mucous membranes and Atraumatic
Respiratory: Clear
Cardiac: S1/S2 and Regular Rhythm; No Murmur or Rub
GI: Soft, Non Tender, Non Distended and Normal Bowel Sounds
Musculoskeletal: Edema, Right Upper Extremity and Edema, Left Lower Extremity
Neuro: Nonfocal/grossly intact
Acute on chronic congestive heart failure with reduced ejection fraction
Echocardiogram with EF 25%
Continue with IV Lasix
Continue Entresto
Continue Coreg
Does not appear to be compliant with Bumex at home
ICD interrogated by cardiology 12/05, No arrhythmia
she follows with Dr Willis from [facility] cardiology
Renal insufficiency
per daughter she does have CKD stage 3b; on 11/19 cr was 1.04 and february of 2023 it was 1.3
Monitor renal function
Elevated troponin, likely secondary to nonischemic myocardial injury
Monitor
hx if ICD in 2022 at [place]
cardiology to interrogate device
recent LE cellulitis
on keflex and doxy; last day 12/07
GERD
Protonix
Diabetes mellitus
Insulin sliding scale, Accu-Cheks
a1C 7.1
Depression
Per field case manager, outpatient VN called mobile crisis since patient had suicidal ideation. Currently she denies suicidal ideation. Evaluated by psychiatry and has been cleared.
Continue Celexa
Sacrum with stage 1 PI, non-blanchable red skin
DVT prophylaxis
Lovenox
Full code
PT/OT
Anticipated Discharge: 24 - 48 hours
Subjective/Interval History
-
Date of Service: December 06, 2024
denies pain
Objective Data
-
Labs:
Laboratory Results
12/06/24
06:56
WBC 5.3
Hgb 11.1 L
Hct 34.6 L
Plt Count 221
Sodium 136
Potassium 4.0
Chloride 103
Carbon Dioxide 29
BUN 44 H
Creatinine 1.3 H
Glucose 89
Calcium 7.8 L
Vital Signs:
Vital Signs
Temp Pulse Resp BP Pulse Ox
98.7 F 71 24 152/86 95
12/06/24 07:30 12/06/24 07:30 12/06/24 07:30 12/06/24 07:30 12/06/24 07:30
I&O
12/05/24 12/06/24 12/07/24
06:59 06:59 06:59
Intake Total 480 / 480 600 / 600 240 / 240
Output Total 1820 / 1820
Balance -1340 / -1340 600 / 600 240 / 240
[2024-12-06 12:40] LABS: Glucose - Point of Care 64 mg/dl (70-99)
[2024-12-06 12:40] LABS: Glucose - Point of Care 70 mg/dl (70-99)
--- NOTE | 2024-12-06 13:36 | W.PN.CARDCBS ---
Addendum entered and electronically signed by Ryan Jose DO 12/06/24 18:55:
I saw and examined the patient.
The [employer] Operator's note was reviewed and I agree with the note.
Comment:
Patient resting in chair. Notes mild improvement in shortness of breath. Denies any chest pain, lightheadedness, palpitations, or weakness
GEN: No distress, awake, alert, oriented x3. sitting in chair
HEENT: supple, anicteric, mmm, eomi. facial ecchymoses
LUNGS: Crackles B/L bases, no wheezes
CV: Reg, S1/S2, /6 syst LSB
ABD: soft, BS+, NT/ND
EXT: No cyanosis, clubbing. 2+ edema of B/L LE with dressings in place
NEURO: Gross non-focal
SKIN: Warm, pink, dry. No rash
Telemetry demonstrates a paced V pace
A/P as below
Patient improving on IV diuresis, will continue for now and monitor response
Intake and output, daily weight, monitor electrolytes with goal potassium greater than 4, magnesium greater than 2
Plan for increasing Coreg today monitor BP and heart rate response
Troponin peak and downtrending, will monitor during hospitalization May benefit from ischemic evaluation
Original Note:
Today's Communication / Plan
-
continue IV diuresis
increase coreg
awaiting records regarding prior ischemic evaluation
Impression / Plan
-
Primary International Trade Compliance Manager: Dr. Thorpe of [facility]
Assessment:
Presentation with weight gain, orthopnea, LE edema
Acute on chronic HFrEF
Elevated troponin
Recent fall with facial ecchymoses
CKD stage IIIB
High-grade AV block s/p PPM
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
Hypertension
Hyperlipidemia
Qif-turwepr-ivjkixxwp diabetes type 2
Neuropathy
GERD
Depression
ECHO 02/02/24: EF 20 to 25%, grade 2 diastolic dysfunction, basal miller move best with moderate hypokinesis, rest of wall severely hypokinetic, mild concentric LVH, moderate MR, moderate TR, PAP 55 to 60 mmHg, mild AR, mildly dilated ascending aorta
ECHO 12/05/2024: EF 25 to 30%, mild concentric LVH, global hypokinesis, MAC, mitral sclerosis with peak/mean gradient 7/4 mmHg, moderate MR, mild , moderate AR with peak/mean gradients 23/13 mmHg, moderate to severe TR, PAP 65 to 70 mmHg, aortic
root and ascending aorta dilation
Plan:
-Patient presents to [facility] for evaluation of 25 pound weight gain, shortness of breath, orthopnea, lower extremity edema which has been going on for last several weeks. Unclear if she was taking her outpatient Bumex correctly, as
appears should have been on Bumex 1 mg twice daily, however states she was only taking it once a day
-Weight downtrending. Continue IV Lasix. Creatinine stable at 1.3.
-echo with stable EF compared to prior, 25-30% and mod valve disease. reviewed with patient and family 12/06
-trops 0.065. no CP. Suspected nonischemic myocardial injury in setting of acute CHF. awaiting records regarding prior ischemic evaluations - apparently with stress in 2021
-Continue guideline directed medical therapy as able. As outpatient is on Coreg and Entresto, continue. BPs elevated. will increase coreg dose to 6.25mg BID. Consider addition of Aldactone and SGLT2 inhibitor if no contraindication and if renal
function remains stable with diuresis. CM to assess cost to patient of [facility].
-in av paced rhythm on tele. follow K/mag
-CHF education
-d/w patient and family at bedside
Progress Note - International Trade Compliance Manager
Subjective
Date of Service: December 06, 2024
denies CP. reports good urine output. states legs improving but remains with soreness
Objective
Labs:
12/06/24 06:56
12/06/24 06:56
Labs
Hgb 11.1 g/dL (12.0-16.0) L 12/06/24 06:56
Hct 34.6 % (37.0-47.0) L 12/06/24 06:56
Plt Count 221 10^3/uL (130-400) 12/06/24 06:56
Sodium 136 mmol/L (135-145) 12/06/24 06:56
Potassium 4.0 mmol/L (3.5-5.1) 12/06/24 06:56
BUN 44 mg/dl (7-17) H 12/06/24 06:56
Creatinine 1.3 mg/dL (0.6-1.0) H 12/06/24 06:56
Glucose 89 mg/dl (70-99) 12/06/24 06:56
Troponins
12/04/24 12/05/24 12/05/24
14:49 08:30 14:09
Troponin I 0.054 H* 0.065 H* 0.065 H*
12/05/24
20:37
Troponin I 0.059 H*
Vital Signs and I&O:
Vital Signs
Temp Pulse Resp BP Pulse Ox
98.4 F 74 18 158/94 95
12/06/24 12:09 12/06/24 12:09 12/06/24 12:09 12/06/24 12:09 12/06/24 12:09
Vital Signs
Temp Pulse Resp BP Pulse Ox
98.4 F 74 18 158/94 95
12/06/24 12:09 12/06/24 12:09 12/06/24 12:09 12/06/24 12:09 12/06/24 12:09
Intake & Output
12/04/24 12/05/24 12/06/24 12/07/24
07:59 07:59 07:59 07:59
Intake Total 480 / 480 840 / 840
Output Total 1820 / 1820
Balance -1340 / -1340 840 / 840
Physical Exam
Physical Exam
GEN: No distress, awake, alert, oriented x3. sitting in chair
HEENT: supple, anicteric, mmm, eomi. facial ecchymoses
LUNGS: Crackles B/L bases, no wheezes
CV: Reg, S1/S2, 1/6 syst LSB
ABD: soft, BS+, NT/ND
EXT: No cyanosis, clubbing. 2+ edema of B/L LE with dressings in place
NEURO: Gross non-focal
SKIN: Warm, pink, dry. No rash
[2024-12-06 14:11] LABS: Glucose - Point of Care 120 mg/dl (70-99)
--- NOTE | 2024-12-06 14:15 | CM ---
Chart reviewed for d/c planning and hospital course updates. Psych evaluated pt, pt is not reporting any suicidal ideations, discontinued 1:1.
Therapy recommending HH at d/c. Pt is current w/ [facility] but they are not accepting pt back for services.
CM met w/ pt and daughter bedside. CM reviewed recommendation for HH at d/c, CM explained [facility] are not able to accept back due to non-compliance w/ meds and refusing to make an appt w/ PCP. Pt stated she has been compliant w/ meds and might have
missed BP meds a few times. Pt's daughter requested a number to speak w/ someone at [facility] as it is her first time hearing this. CM confirmed w/ Meme/[facility] liaison of daughter's requesting to speak w/ someone, Meme confirmed CM can provide her
number to daughter. No other HH agency identified at this time. CM will follow up.
Plan: Home w/ HH recommended. CM will follow up w/ pt if she is interested in another VN provider
--- NOTE | 2024-12-06 16:01 | W.PN.UPDATE ---
Update Note
Progress Note Update
Lexiscan nuclear stress test 06/07/2022: Small size defect in anterior apical wall that is fixed, resting EF 27%
[2024-12-06 17:05] LABS: Glucose - Point of Care 93 mg/dl (70-99)
[2024-12-06] MEDS: LOVENOX 40 MG SC (17:47)
[2024-12-06] MEDS: COREG 6.25 MG PO (19:57)
[2024-12-06] MEDS: ZYRTEC PO (21:05)
[2024-12-06 21:18] LABS: Glucose - Point of Care 109 mg/dl (70-99)
[2024-12-07 03:32] VITALS: BP 136/69
[2024-12-07 04:01] LABS: Glucose - Point of Care 88 mg/dl (70-99)
[2024-12-07 06:00] VITALS: BMI 25.4
[2024-12-07 07:13] VITALS: BP 134/72
[2024-12-07 07:14] LABS: Hematocrit 34.2 % (37.0-47.0); Mean Corp Hgb Conc. 32.2 g/dL (33.0-37.0); Mean Corpuscular Hgb 27.2 pg (27.0-31.0); Mean Corpuscular Volume 84.7 fL (81.0-99.0); Platelet Count 237 10^3/uL (130-400); Red Blood Cell Count 4.04 10^6/uL (4.20-5.40); Red Cell Dist. Width 16.3 % (11.5-14.5); White Blood Cell Count 5.3 10^3/uL (4.8-10.8)
[2024-12-07 07:48] LABS: Blood Urea Nitrogen 48 mg/dl (7-17); Calcium 7.9 mg/dl (8.4-10.2); Carbon Dioxide 33 mmol/L (22-30); Chloride 96 mmol/L (98-107); Estimated Creatinine Clearance 32 ml/min; Glucose 100 mg/dl (70-99); Potassium 4.2 mmol/L (3.5-5.1); Sodium 134 mmol/L (135-145); eGFR 43.69
[2024-12-07] MEDS: COREG 6.25 MG PO ×2 (09:35→20:05)
[2024-12-07] MEDS: KEFLEX 500 MG PO ×3 (09:35→22:34)
[2024-12-07] MEDS: DETROL LA 2 MG PO ×2 (09:35→20:05)
[2024-12-07] MEDS: MAGNESIUM OXIDE 250 MG PO (09:35)
[2024-12-07] MEDS: VIBRAMYCIN 100 MG PO ×2 (09:35→20:05)
[2024-12-07] MEDS: NEURONTIN 300 MG PO ×3 (09:35→22:34)
[2024-12-07] MEDS: RESTASIS 0.05% OPHTHALMIC EMULSION 1 DROPS BOTH EYES ×2 (09:35→20:05)
[2024-12-07] MEDS: JANUVIA 100 MG PO (09:36)
[2024-12-07] MEDS: PROTONIX 40 MG PO (09:36)
[2024-12-07] MEDS: LASIX 40 MG IV ×2 (09:36→17:39)
[2024-12-07] MEDS: CELEXA 20 MG PO (09:36)
[2024-12-07] MEDS: ENTRESTO 49 MG/51 MG 1 TAB PO (09:36)
[2024-12-07] MEDS: HYDROPHOR 1 APPLIC TOPICAL (09:38)
[2024-12-07] MEDS: BENTYL 10 MG PO ×4 (09:42→22:33)
--- NOTE | 2024-12-07 09:49 | W.PN.HOSP.TC ---
Today's Communication/Plan
-
Stop Januvia
IV Lasix
Might consider changing Entresto to BID dose: to d/w cardiology.
Assessment / Plan
Assessment / Plan
Physical exam:
General: chronically ill looking. No Apparent Distress
HEENT: Normocephalic, Moist mucous membranes and Atraumatic
Respiratory: Basal crackles.
Cardiac: S1/S2 , + diastolic murmur
GI: Soft, Non Tender, Non Distended and Normal Bowel Sounds
Musculoskeletal: Edema, Right Upper Extremity and Edema, Left Lower Extremity
Neuro: Nonfocal/grossly intact
Acute on chronic congestive heart failure with reduced ejection fraction
Echocardiogram with EF 25%, moderate mitral regurgitation/moderate aortic regurgitation/moderate to severe tricuspid regurgitation.
Continue with IV Lasix
Continue Entresto
Increase dose of Coreg to 6.25 mg BID.
Does not appear to be compliant with Bumex at home
ICD interrogated by cardiology 12/05, No arrhythmia
she follows with Dr Willis from [facility] cardiology
Lexiscan nuclear stress test 06/07/2022: Small size defect in anterior apical wall that is fixed, resting EF 27%
# CKD IIIb
per daughter she does have CKD stage 3b; on 11/19 cr was 1.04 and february of 2023 it was 1.3
Monitor renal function
Elevated troponin, likely secondary to nonischemic myocardial injury
No chest pain
Monitor
# S/P ICD in 2022 at [place]
# Multiple lower extremity venous wounds. Sacrum with stage 1 PI, non-blanchable red skin
Follow-up with wound care
recent LE cellulitis
on Keflex and doxy; last day 12/07
# Hyponatremia
#GERD
Protonix
Diabetes mellitus
Patient is on Januvia. Not preferred medicine in heart failure patients..
Insulin sliding scale, Accu-Cheks
a1C 7.1
Depression
Per case assembler, outpatient VN called mobile crisis since patient had suicidal ideation. Currently she denies suicidal ideation. Evaluated by psychiatry and has been cleared.
Continue Celexa
# Diabetic neuropathy, continue with gabapentin
DVT prophylaxis
Lovenox
Full code
PT/OT
Total time spent to see the patient on the floor, examine the patient, review data and lab results, discuss treatment plan with patient, nursing staff around 55 minutes
Anticipated Discharge: > 48 hours
Subjective/Interval History
-
Date of Service: December 07, 2024
She feels better but not completely without sob
Objective Data
-
Labs:
Laboratory Results
12/07/24 12/07/24
06:53 06:54
WBC 5.3
Hgb 11.0 L
Hct 34.2 L
Plt Count 237
Sodium 134 L
Potassium 4.2
Chloride 96 L
Carbon Dioxide 33 H
BUN 48 H
Creatinine 1.3 H
Glucose 100 H
Calcium 7.9 L
Vital Signs:
Vital Signs
Temp Pulse Resp BP Pulse Ox
97.4 F 71 15 134/72 91
12/07/24 07:13 12/07/24 07:13 12/07/24 07:13 12/07/24 07:13 12/07/24 07:13
I&O
12/06/24 12/07/24 12/08/24
06:59 06:59 06:59
Intake Total 600 / 600 960 / 960
Balance 600 / 600 960 / 960
--- NOTE | 2024-12-07 09:53 | CM ---
Consult completed
Farxiga 10 mg daily; 30 day supply; cost for patient $116.42
Attending notified
[2024-12-07 10:08] LABS: Glucose - Point of Care 100 mg/dl (70-99)
[2024-12-07] MEDS: NOVOLOG FLEXPEN-LOW RESISTANCE SC ×3 (10:08→17:39)
[2024-12-07] MEDS: TYLENOL 1000 MG PO (10:10)
[2024-12-07] MEDS: DILAUDID 2 MG PO ×2 (12:29→23:06)
[2024-12-07 13:33] LABS: Glucose - Point of Care 86 mg/dl (70-99)
[2024-12-07 15:16] VITALS: BP 126/76
--- NOTE | 2024-12-07 15:55 | W.PN.CARDCBS ---
Today's Communication / Plan
-
Continue goal-directed medical therapy, IV diuresis
Start Aldactone 25 mg daily monitor blood pressure, kidney function, and potassium
Intake and output, daily weights
Monitor on telemetry
Impression / Plan
-
Primary Medicine Aide: Dr. Thorpe of [facility]
Assessment:
Presentation with weight gain, orthopnea, LE edema
Acute on chronic HFrEF
Elevated troponin
Recent fall with facial ecchymoses
CKD stage IIIB
High-grade AV block s/p PPM
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
Hypertension
Hyperlipidemia
Jqf-bwnbzer-qhrefbdzj diabetes type 2
Neuropathy
GERD
Depression
ECHO 02/02/24: EF 20 to 25%, grade 2 diastolic dysfunction, basal miller move best with moderate hypokinesis, rest of wall severely hypokinetic, mild concentric LVH, moderate MR, moderate TR, PAP 55 to 60 mmHg, mild AR, mildly dilated ascending aorta
ECHO 12/05/2024: EF 25 to 30%, mild concentric LVH, global hypokinesis, MAC, mitral sclerosis with peak/mean gradient 7/4 mmHg, moderate MR, mild , moderate AR with peak/mean gradients 23/13 mmHg, moderate to severe TR, PAP 65 to 70 mmHg, aortic
root and ascending aorta dilation
06/07/2022: Small size defect in anterior apical wall that is fixed, resting EF 27%
Plan:
-Patient presents to [facility] for evaluation of 25 pound weight gain, shortness of breath, orthopnea, lower extremity edema which has been going on for last several weeks. Unclear if she was taking her outpatient Bumex correctly, as
appears should have been on Bumex 1 mg twice daily, however states she was only taking it once a day
-Weight downtrending. Continue IV Lasix. Creatinine stable at 1.3.
-echo with stable EF compared to prior, 25-30% and mod valve disease. reviewed with patient and family 12/06
-trops 0.065. no CP. Suspected nonischemic myocardial injury in setting of acute CHF. awaiting records regarding prior ischemic evaluations - apparently with stress in 2021; may require left/right heart catheterization if no improvement
-Continue guideline directed medical therapy as able. As outpatient is on Coreg and Entresto, continue. BPs elevated. will increase coreg dose to 6.25mg BID. Patient taking Entresto daily due to possible pruritus/itching episode. Tolerating
daily without complication. Will start Aldactone 25 mg daily. Consider addition of SGLT2 inhibitor if no contraindication and if renal function remains stable with diuresis. CM to assess cost to patient of [facility]; patient would benefit from this
medication.
-in av paced rhythm on tele. follow K/mag
-CHF education
-d/w patient and family at bedside
Progress Note - Medicine Aide
Subjective
Date of Service: December 07, 2024
Patient seen and examined. No acute events overnight. Patient resting comfortably in chair. Patient notes improvement in lower extremity edema however notes increasing lower extremity erythema. Denies chest pain, lightheadedness, dizziness,
weakness. Still notes mild shortness of breath. Telemetry demonstrates a paced V paced.
Objective
Labs:
12/07/24 06:54
12/07/24 06:53
Labs
Hgb 11.0 g/dL (12.0-16.0) L 12/07/24 06:54
Hct 34.2 % (37.0-47.0) L 12/07/24 06:54
Plt Count 237 10^3/uL (130-400) 12/07/24 06:54
Sodium 134 mmol/L (135-145) L 12/07/24 06:53
Potassium 4.2 mmol/L (3.5-5.1) 12/07/24 06:53
BUN 48 mg/dl (7-17) H 12/07/24 06:53
Creatinine 1.3 mg/dL (0.6-1.0) H 12/07/24 06:53
Glucose 100 mg/dl (70-99) H 12/07/24 06:53
Troponins
12/05/24 12/05/24 12/05/24
08:30 14:09 20:37
Troponin I 0.065 H* 0.065 H* 0.059 H*
Vital Signs and I&O:
Vital Signs
Temp Pulse Resp BP Pulse Ox
97.5 F 73 16 126/76 93
12/07/24 15:16 12/07/24 15:16 12/07/24 15:16 12/07/24 15:16 12/07/24 15:16
Vital Signs
Temp Pulse Resp BP Pulse Ox
97.5 F 73 16 126/76 93
12/07/24 15:16 12/07/24 15:16 12/07/24 15:16 12/07/24 15:16 12/07/24 15:16
Intake & Output
12/05/24 12/06/24 12/07/24 12/08/24
06:59 06:59 06:59 06:59
Intake Total 480 / 480 600 / 600 960 / 960
Output Total 1820 / 1820
Balance -1340 / -1340 600 / 600 960 / 960
Physical Exam
Physical Exam
GEN: No distress, awake, alert, oriented x3. sitting in chair
HEENT: supple, anicteric, mmm, eomi. facial ecchymoses
LUNGS: Crackles B/L bases, no wheezes
CV: Reg, S1/S2, 1/6 syst LSB
ABD: soft, BS+, NT/ND
EXT: No cyanosis, clubbing. 1+ edema of B/L LE,. Healing ulcerations bilateral lower extremities, bilateral feet erythematous
NEURO: Gross non-focal
SKIN: Warm, pink, dry. No rash
[2024-12-07] MEDS: LOVENOX 40 MG SC (17:39)
[2024-12-07 19:53] VITALS: BP 146/76
[2024-12-07] MEDS: ZYRTEC 5 MG PO (22:34)
[2024-12-07 23:46] VITALS: BP 133/74
[2024-12-08] VITALS (7 sets, daily range): BP systolic 99–138; BP diastolic 56–73; BMI 24.5
--- NOTE | 2024-12-08 05:40 | PTCARENOTE ---
RN rounded on patient. RN weighed patient via bed scale. RN asked patient if her bedding and pad could be checked/ changed. Patient refusing pad change/check at this time. RN explained the importance of keeping bed pads dry and keeping skin dry.
Patient is still refusing, stating 'no one else does this, I don`t even have that much pee on my pad'. Patient education provided. Will pass along to dayshift RN.
[2024-12-08] MEDS: ALDACTONE 25 MG PO (07:54)
[2024-12-08] MEDS: VIBRAMYCIN 100 MG PO (07:55)
[2024-12-08] MEDS: MAGNESIUM OXIDE 250 MG PO (07:55)
[2024-12-08] MEDS: DETROL LA 2 MG PO ×2 (07:55→20:56)
[2024-12-08] MEDS: CELEXA 20 MG PO (07:56)
[2024-12-08] MEDS: RESTASIS 0.05% OPHTHALMIC EMULSION 1 DROPS BOTH EYES ×2 (07:56→20:56)
[2024-12-08] MEDS: ENTRESTO 49 MG/51 MG 1 TAB PO (07:56)
[2024-12-08] MEDS: COREG 6.25 MG PO ×2 (07:56→20:56)
[2024-12-08] MEDS: PROTONIX 40 MG PO (07:56)
[2024-12-08] MEDS: BENTYL 10 MG PO ×4 (07:56→21:00)
[2024-12-08] MEDS: KEFLEX 500 MG PO (07:56)
[2024-12-08] MEDS: LASIX 40 MG IV ×2 (07:57→15:33)
[2024-12-08] MEDS: NEURONTIN 300 MG PO ×3 (07:57→21:00)
[2024-12-08] MEDS: HYDROPHOR 1 APPLIC TOPICAL (08:09)
[2024-12-08] MEDS: TYLENOL 1000 MG PO ×3 (08:15→21:00)
[2024-12-08] MEDS: NOVOLOG FLEXPEN-LOW RESISTANCE SC ×3 (09:26→16:52)
--- NOTE | 2024-12-08 10:38 | W.PN.HOSP.TC ---
Today's Communication/Plan
-
Continue with with care of bilateral lower extremity venous dermatitis
Continue with pain control for the lower extremity pain with Tylenol and Dilaudid
Continue with diuretic therapy
Patient might change cardiology service to [place]
Assessment / Plan
Assessment / Plan
Physical exam:
General: chronically ill looking. No Apparent Distress
HEENT: Normocephalic, Moist mucous membranes and Atraumatic
Respiratory: Basal crackles.
Cardiac: S1/S2 , + diastolic murmur
GI: Soft, Non Tender, Non Distended and Normal Bowel Sounds
Musculoskeletal: Edema, Right Upper Extremity and Edema, Left Lower Extremity
Neuro: Nonfocal/grossly intact
Acute on chronic congestive heart failure with reduced ejection fraction
Echocardiogram with EF 25%, moderate mitral regurgitation/moderate aortic regurgitation/moderate to severe tricuspid regurgitation.
Continue with IV Lasix
Continue Entresto. Apparently patient developed itching when she was on bilateral dose of Entresto
Increase dose of Coreg to 6.25 mg BID.
Does not appear to be compliant with Bumex at home
ICD interrogated by cardiology 12/05, No arrhythmia
she follows with Dr Willis from [facility] cardiology. She might change to cardiology service at dose.
Lexiscan nuclear stress test 06/07/2022: Small size defect in anterior apical wall that is fixed, resting EF 27%
# CKD IIIb
per daughter she does have CKD stage 3b; on 11/19 cr was 1.04 and february of 2023 it was 1.3
Monitor renal function
Elevated troponin, likely secondary to nonischemic myocardial injury
No chest pain
Monitor
# S/P ICD in 2022 at [employer]
# Bilateral multiple lower extremity venous wounds.
Seems consistent with dermatitis/venous- possible exfoliative type especially with chronicity( years) and on/ off pattern of flare-up
Appearance of open venous appearing wounds/macerated edges/excoriated skin with erythema and tenderness. No swelling. Positive weeping
Continue with wound care
She was recently started on double antibiotics course for presumed cellulitis. open wounds can have superimposed secondary/bacterial infection at times. No fever, no leukocytosis. Was on Keflex and doxy; last day 12/07
Continue with pain control, prefer Dilaudid or oxycodone due to chronic kidney disease. Tylenol TID.
# Sacrum with stage 1 PI, non-blanchable red skin
Follow-up with wound care
# Hyponatremia
#GERD
Protonix
Diabetes mellitus
Patient is on Januvia. Not preferred medicine in heart failure patients..
Insulin sliding scale, Accu-Cheks
a1C 7.1
Depression
Per case advocate, outpatient VN called mobile crisis since patient had suicidal ideation. Currently she denies suicidal ideation. Evaluated by psychiatry and has been cleared.
Continue Celexa
# Diabetic neuropathy, continue with gabapentin
DVT prophylaxis
Lovenox
Full code
PT/OT
Total time spent to see the patient on the floor, examine the patient, review data and lab results, discuss treatment plan with patient, nursing staff around 55 minutes
Anticipated Discharge: > 48 hours
Subjective/Interval History
-
Date of Service: December 08, 2024
No chest pain
No sob
Complains of burning in her legs
Objective Data
-
Vital Signs:
Vital Signs
Temp Pulse Resp BP Pulse Ox
98.0 F 71 15 134/73 91
12/08/24 07:00 12/08/24 07:00 12/08/24 07:00 12/08/24 07:56 12/08/24 07:00
I&O
12/07/24 12/08/24 12/09/24
06:59 06:59 06:59
Intake Total 960 / 960 300 / 300
Balance 960 / 960 300 / 300
--- NOTE | 2024-12-08 12:55 | W.PN.CARDCBS ---
Today's Communication / Plan
-
Continue diuresis, with IV Lasix, oral Aldactone
Repeat electrolytes
Impression / Plan
-
Primary Machinist Wood: Dr. Thorpe of [facility]
Assessment:
Presentation with weight gain, orthopnea, LE edema
Acute on chronic HFrEF
Elevated troponin
Recent fall with facial ecchymoses
CKD stage IIIB
High-grade AV block s/p PPM
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
Hypertension
Hyperlipidemia
Dcr-itskxgl-xfovyfwxf diabetes type 2
Neuropathy
GERD
Depression
ECHO 02/02/24: EF 20 to 25%, grade 2 diastolic dysfunction, basal miller move best with moderate hypokinesis, rest of wall severely hypokinetic, mild concentric LVH, moderate MR, moderate TR, PAP 55 to 60 mmHg, mild AR, mildly dilated ascending aorta
ECHO 12/05/2024: EF 25 to 30%, mild concentric LVH, global hypokinesis, MAC, mitral sclerosis with peak/mean gradient 7/4 mmHg, moderate MR, mild , moderate AR with peak/mean gradients 23/13 mmHg, moderate to severe TR, PAP 65 to 70 mmHg, aortic
root and ascending aorta dilation
06/07/2022: Small size defect in anterior apical wall that is fixed, resting EF 27%
Plan:
-Patient presents to [facility] for evaluation of 25 pound weight gain, shortness of breath, orthopnea, lower extremity edema which has been going on for last several weeks. Unclear if she was taking her outpatient Bumex correctly, as
appears should have been on Bumex 1 mg twice daily, however states she was only taking it once a day
-Weight downtrending. Continue IV Lasix. Creatinine stable at 1.3.
-echo with stable EF compared to prior, 25-30% and mod valve disease. reviewed with patient and family 12/06
-trops 0.065. no CP. Suspected nonischemic myocardial injury in setting of acute CHF. awaiting records regarding prior ischemic evaluations - apparently with stress in 2021; may require left/right heart catheterization if no improvement
-Continue guideline directed medical therapy as able. As outpatient is on Coreg and Entresto, continue. BPs elevated. will increase coreg dose to 6.25mg BID. Patient taking Entresto daily due to possible pruritus/itching episode. Tolerating
daily without complication. Will start Aldactone 25 mg daily. Consider addition of SGLT2 inhibitor if no contraindication and if renal function remains stable with diuresis. CM to assess cost to patient of [facility]; patient would benefit from this
medication.
-in av paced rhythm on tele. follow K/mag
-CHF education
-d/w patient and family at bedside
Progress Note - Machinist Wood
Subjective
Date of Service: December 08, 2024
Patient seen and examined. No acute events overnight. Patient resting comfortably in chair, notes persistent shortness of breath however improving overall. Denies chest pain, palpitations, weakness. Notes lower extremity itching and burning
sensation in the legs.
Objective
Labs:
12/07/24 06:54
12/07/24 06:53
Labs
Hgb 11.0 g/dL (12.0-16.0) L 12/07/24 06:54
Hct 34.2 % (37.0-47.0) L 12/07/24 06:54
Plt Count 237 10^3/uL (130-400) 12/07/24 06:54
Sodium 134 mmol/L (135-145) L 12/07/24 06:53
Potassium 4.2 mmol/L (3.5-5.1) 12/07/24 06:53
BUN 48 mg/dl (7-17) H 12/07/24 06:53
Creatinine 1.3 mg/dL (0.6-1.0) H 12/07/24 06:53
Glucose 100 mg/dl (70-99) H 12/07/24 06:53
Troponins
12/05/24 12/05/24
14:09 20:37
Troponin I 0.065 H* 0.059 H*
Vital Signs and I&O:
Vital Signs
Temp Pulse Resp BP Pulse Ox
97.4 F 72 14 99/56 88
12/08/24 11:20 12/08/24 11:20 12/08/24 11:20 12/08/24 11:20 12/08/24 11:20
Vital Signs
Temp Pulse Resp BP Pulse Ox
97.4 F 72 14 99/56 88
12/08/24 11:20 12/08/24 11:20 12/08/24 11:20 12/08/24 11:20 12/08/24 11:20
Intake & Output
12/06/24 12/07/24 12/08/24 12/09/24
06:59 06:59 06:59 06:59
Intake Total 600 / 600 960 / 960 300 / 300
Balance 600 / 600 960 / 960 300 / 300
Physical Exam
Physical Exam
GEN: No distress, awake, alert, oriented x3. sitting in chair
HEENT: supple, anicteric, mmm, eomi. facial ecchymoses
LUNGS: Crackles B/L bases, no wheezes
CV: Reg, S1/S2, 1/6 syst LSB
ABD: soft, BS+, NT/ND
EXT: No cyanosis, clubbing. Bilateral lower extremities wrapped
NEURO: Gross non-focal
SKIN: Warm, pink, dry. No rash
[2024-12-08] MEDS: DILAUDID 4 MG PO (14:21)
[2024-12-08 16:44] LABS: Glucose - Point of Care 115 mg/dl (70-99)
[2024-12-08] MEDS: LOVENOX 40 MG SC (17:21)
[2024-12-08] MEDS: ZYRTEC 5 MG PO (21:00)
[2024-12-08 21:52] LABS: Glucose - Point of Care 90 mg/dl (70-99)
[2024-12-09] VITALS (7 sets, daily range): BP systolic 87–131; BP diastolic 52–82; BMI 23.0
[2024-12-09] MEDS: ZOFRAN 4 MG IV (04:22)
[2024-12-09 07:15] LABS: Hematocrit 37.9 % (37.0-47.0); Mean Corp Hgb Conc. 31.7 g/dL (33.0-37.0); Mean Corpuscular Volume 85.2 fL (81.0-99.0); Mean Platelet Volume 10.1 fL (7.4-10.4); Platelet Count 241 10^3/uL (130-400); Red Blood Cell Count 4.45 10^6/uL (4.20-5.40); Red Cell Dist. Width 16.3 % (11.5-14.5)
--- NOTE | 2024-12-09 07:45 | PTCARENOTE ---
Patient noted to have decreased LOC this AM. BP low, and fevers noted. Nightshift reports patient vomiting x1 around 6am. ABD appear distended, firm. Bowel sounds noted, tympanic. Dr Alvarez notified. New orders received.
[2024-12-09 07:46] LABS: Blood Urea Nitrogen 54 mg/dl (7-17); Calcium 8.1 mg/dl (8.4-10.2); Carbon Dioxide 35 mmol/L (22-30); Chloride 91 mmol/L (98-107); Estimated Creatinine Clearance 32 ml/min; Glucose 128 mg/dl (70-99); Potassium 4.7 mmol/L (3.5-5.1); Sodium 133 mmol/L (135-145); eGFR 43.69
[2024-12-09 07:59] LABS: Glucose - Point of Care 138 mg/dl (70-99)
[2024-12-09] MEDS: ALDACTONE PO (08:15)
[2024-12-09] MEDS: LASIX IV (08:15)
[2024-12-09] MEDS: NOVOLOG FLEXPEN-LOW RESISTANCE SC ×2 (08:23→12:27)
[2024-12-09] MEDS: ProAmatine 5 MG PO (09:45)
[2024-12-09 10:01] LABS: COVID-19 Antigen Negative (Negative)
[2024-12-09] MEDS: BENTYL PO ×4 (10:28→22:05)
[2024-12-09] MEDS: CELEXA PO (10:28)
[2024-12-09] MEDS: COREG PO ×2 (10:28→20:09)
[2024-12-09] MEDS: ENTRESTO 49 MG/51 MG PO (10:30)
[2024-12-09] MEDS: DETROL LA PO ×3 (10:30→20:25)
[2024-12-09] MEDS: MAGNESIUM OXIDE PO (10:30)
[2024-12-09] MEDS: NEURONTIN PO ×2 (10:31→22:05)
[2024-12-09] MEDS: PROTONIX PO (10:31)
[2024-12-09] MEDS: TYLENOL PO ×2 (10:31→22:05)
[2024-12-09] MEDS: TIGAN 200 MG IM (10:39)
[2024-12-09] MEDS: TYLENOL/FEVERALL 325 MG RECTAL (10:39)
--- NOTE | 2024-12-09 11:30 | PTCARENOTE ---
Patient returning from CT of ABD. Patient had vomited while lying at 25 degrees. Patient quickly assisted back to bed and cleaned. Patient was also incontinent of moderate soft stool at this time. No distress noted, no s/s of aspiration noted. Will
monitor.
--- NOTE | 2024-12-09 12:15 | PTCARENOTE ---
O2 sat noted to be in the 60s on RA. Patient continues with fever. O2 applied, patient now sating 94% on 6L. Breath sounds are noted with rhonchi. Dr. Alvarez notified. CXR ordered. Will monitor and support.
[2024-12-09 12:16] LABS: Glucose - Point of Care 129 mg/dl (70-99)
--- NOTE | 2024-12-09 12:46 | PHA.VAN.IN ---
Assessment
- Assessment
Renal Function: Appears similar to baseline
Concomitant Antimicrobials: piperacillin/tazobactam
Plan
- Plan
Initial / Loading Dose: 1500mg - administration pending, INFUSE OVER 2.5 HOURS
Maintenance Regimen: dosing by level
Monitoring: random 12/10 0600
Will start with dosing by level as Vanc 500mg Q24H predicts subtherapeutic level and 750mg Q24H predicts close to supratherapeutic level
Pharmacokinetics Vancomycin I
- -
Patient Age: 74
Patient Sex: Female
Vancomycin Day #: 1
Indication: Bacteremia
Requesting Provider: Dr. Alvarez
Pertinent Antimicrobial Allergies:
polymyxin B - itching
Sulfonamide antibiotics - itching
vancomycin - itching
Height / Weight:
Height 5 ft 3 in
Actual Weight 58.995 kg
Pertinent Past Medical History: CKD III, DM
- Vital Signs / Lab Results
Temp Pulse Resp BP Pulse Ox
101.6 F H 91 18 109/53 94
12/09/24 12:26 12/09/24 12:26 12/09/24 12:26 12/09/24 12:26 12/09/24 12:26
Lab Results - Hematology
12/07/24 12/09/24
06:54 06:22
WBC 5.3 5.0
Lab Results - Chemistry
12/07/24 12/09/24
06:53 06:22
BUN 48 H 54 H
Creatinine 1.3 H 1.3 H
Estimated Creat Clear 32 32
12/09/24
11:42
Lactic Acid 2.0
Microbiology Results
12/09/24 09:34 Influenza Types A & B (NILES) - Final
Nasal Swab Negative for Influenza A & B, NAAT
Negative results must be combined with clinical observations
and patient history.
Nucleic Acid Amplification test (NAAT)performed on the
[employer] platform.
12/05/24 15:25 MRSA Screen - Final
Nose No Methicillin Resistant Staphylococcus aureus isolated.
[2024-12-09 13:20] LABS: Urine Albumin 3+ (Neg - Trace); Urine Bilirubin Negative (Negative); Urine Character Clear (Clear); Urine Color Yellow; Urine Glucose Negative (Negative); Urine Ketone Negative (Negative); Urine Leukocyte Negative (Negative); Urine Nitrite Negative (Negative); Urine Occult Blood Negative (Negative); Urine Specific Gravity 1.015 (<1.030); Urine Urobilinogen Negative (Neg - 1+)
[2024-12-09] MEDS: VANCOCIN 530 MG IV (13:22)
--- NOTE | 2024-12-09 13:26 | W.PN.HOSP.TC ---
Today's Communication/Plan
-
Monitor vital signs see plan
Wean oxygen as tolerated
Start empiric antibiotics
Follow cultures
Follow fever curve
Discussed with daughter over the phone
Hold IV Lasix
Bladder scan
Start dulcolax suppository, still no response then may need enema
Assessment / Plan
Assessment / Plan
Physical exam:
General: chronically ill looking
HEENT: Normocephalic, Moist mucous membranes and Atraumatic
Respiratory: Basal crackles.
Cardiac: S1/S2 , + diastolic murmur
GI: Soft, tender, distended
Musculoskeletal: Edema, Right Upper Extremity and Edema, Left Lower Extremity
Neuro: Nonfocal/grossly intact
Abdominal pain with distention likely secondary to enteritis/ileus and constipation
Start Dulcolax suppository, if does not improve then will need enema
N.p.o. for now, okay for p.o. meds
CT abdomen/pelvis without any obstruction, consistent with possible enteritis/ileus and constipation
lactate 2
Acute hypoxic respiratory failure likely secondary to possible aspiration given recent vomiting this morning
Sepsis (fever,tachypnea) likely secondary to aspiration
Check blood culture, UA, chest x-ray
Start empiric vancomycin and Zosyn
Blood culture
Currently on 6 L nasal cannula, wean oxygen as tolerated
Follow fever curve, COVID, flu negative
Acute on chronic congestive heart failure with reduced ejection fraction
Echocardiogram with EF 25%, moderate mitral regurgitation/moderate aortic regurgitation/moderate to severe tricuspid regurgitation.
Continue with IV Lasix
Continue Entresto. Apparently patient developed itching when she was on bilateral dose of Entresto
Increase dose of Coreg to 6.25 mg BID. holding parametrs
Does not appear to be compliant with Bumex at home
ICD interrogated by cardiology 12/05, No arrhythmia
she follows with Dr Willis from [facility] cardiology. She might change to cardiology service at dose.
Lexiscan nuclear stress test 06/07/2022: Small size defect in anterior apical wall that is fixed, resting EF 27%
# CKD IIIb
per daughter she does have CKD stage 3b; on 11/19 cr was 1.04 and february of 2023 it was 1.3
Monitor renal function
Hyponatremia
Monitor
Elevated troponin, likely secondary to nonischemic myocardial injury
No chest pain
Monitor
# S/P ICD in 2022 at [place]
# Bilateral multiple lower extremity venous wounds.
Seems consistent with dermatitis/venous- possible exfoliative type especially with chronicity( years) and on/ off pattern of flare-up
Appearance of open venous appearing wounds/macerated edges/excoriated skin with erythema and tenderness. No swelling. Positive weeping
Continue with wound care
She was recently started on double antibiotics course for presumed cellulitis. open wounds can have superimposed secondary/bacterial infection at times. No fever, no leukocytosis. Was on Keflex and doxy; last day 12/07
Continue with pain control, prefer Dilaudid or oxycodone due to chronic kidney disease. Tylenol TID.
# Sacrum with stage 1 PI, non-blanchable red skin
Follow-up with wound care
# Hyponatremia
#GERD
Protonix
Diabetes mellitus
Patient is on Januvia. Not preferred medicine in heart failure patients..
Insulin sliding scale, Accu-Cheks
a1C 7.1
History of colon cancer status post resection
History of ostomy with reversal
History of SBO
Depression
Per case packer and sealer, outpatient VN called mobile crisis since patient had suicidal ideation. Currently she denies suicidal ideation. Evaluated by psychiatry and has been cleared.
Continue Celexa
# Diabetic neuropathy, continue with gabapentin
DVT prophylaxis
Lovenox
Full code
PT/OT
Total time spent to see the patient on the floor, examine the patient, review data and lab results, discuss treatment plan with patient, nursing staff around 54 minutes
Anticipated Discharge: > 48 hours
Subjective/Interval History
-
Date of Service: December 09, 2024
Abdominal pain
Objective Data
-
Labs:
Laboratory Results
12/09/24
06:22
WBC 5.0
Hgb 12.0
Hct 37.9
Plt Count 241
Sodium 133 L
Potassium 4.7
Chloride 91 L
Carbon Dioxide 35 H
BUN 54 H
Creatinine 1.3 H
Glucose 128 H
Calcium 8.1 L
Vital Signs:
Vital Signs
Temp Pulse Resp BP Pulse Ox
101.6 F H 91 18 109/53 94
12/09/24 12:26 12/09/24 12:26 12/09/24 12:26 12/09/24 12:26 12/09/24 12:26
I&O
12/08/24 12/09/24 12/10/24
06:59 06:59 06:59
Intake Total 300 / 300 480 / 480
Balance 300 / 300 480 / 480
[2024-12-09 14:43] LABS: Urine Amorphous Seen; Urine Squamous Cell 26-30 /LPF (Few)
[2024-12-09 14:45] LABS: Urine Red Blood Cell 0-2 /HPF (0-2); Urine White Cell 0-2 /HPF (0-5)
[2024-12-09] MEDS: ZOSYN 50 IV ×2 (15:03→20:13)
[2024-12-09] MEDS: RESTASIS 0.05% OPHTHALMIC EMULSION 1 DROPS BOTH EYES (15:03)
[2024-12-09] MEDS: DULCOLAX 10 MG RECTAL (15:48)
[2024-12-09 16:56] LABS: Glucose - Point of Care 154 mg/dl (70-99)
[2024-12-09] MEDS: NEURONTIN 300 MG PO (17:50)
[2024-12-09] MEDS: COLACE 100 MG PO (17:51)
[2024-12-09] MEDS: TYLENOL 1000 MG PO (17:51)
[2024-12-09] MEDS: LOVENOX 40 MG SC (17:51)
[2024-12-09] MEDS: NOVOLOG FLEXPEN-LOW RESISTANCE 1 UNITS SC (17:56)
--- NOTE | 2024-12-09 18:00 | PTCARENOTE ---
Dressings changed to b/l legs wounds per MD order. Daughter at bedside during dressing change.
--- NOTE | 2024-12-09 18:07 | W.PN.CARDCBS ---
Today's Communication / Plan
-
Workup of acute abdominal pain as per primary will follow along with you
Impression / Plan
-
Primary Comsec Manager: Dr. Thorpe of [facility]
Assessment:
Presentation with weight gain, orthopnea, LE edema
Acute on chronic HFrEF
Elevated troponin
Recent fall with facial ecchymoses
CKD stage IIIB
High-grade AV block s/p PPM
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
Hypertension
Hyperlipidemia
Fvb-[id number] diabetes type 2
Neuropathy
GERD
Depression
ECHO 02/02/24: EF 20 to 25%, grade 2 diastolic dysfunction, basal miller move best with moderate hypokinesis, rest of wall severely hypokinetic, mild concentric LVH, moderate MR, moderate TR, PAP 55 to 60 mmHg, mild AR, mildly dilated ascending aorta
ECHO 12/05/2024: EF 25 to 30%, mild concentric LVH, global hypokinesis, MAC, mitral sclerosis with peak/mean gradient 7/4 mmHg, moderate MR, mild , moderate AR with peak/mean gradients 23/13 mmHg, moderate to severe TR, PAP 65 to 70 mmHg, aortic
root and ascending aorta dilation
06/07/2022: Small size defect in anterior apical wall that is fixed, resting EF 27%
Plan:
Acute abdominal pain with distended abdomen and vomiting, Fever and hypotension
-Discussed with hospitalist with plan for CT abdomen/pelvis
-Monitor closely for further clinical decompensation And status upgrade
-Given hypotension and concern for acute abdomen cardiac medications including diuretics held
-Pancultured
-Empiric antibiotics
-Discussed with hospitalist and nursing
-Acute on chronic heart failure with reduced ejection fraction, ejection fraction 25% with moderate mitral regurgitation/moderate aortic regurgitation/moderate to severe tricuspid regurgitation
-Patient's oral medications including carvedilol, Entresto held secondary to above
-Cautiously continue IV Lasix monitor volume status closely
-ICD interrogation 2/20 without arrhythmia
-Monitor renal function closely
Progress Note - Comsec Manager
Subjective
Date of Service: December 09, 2024
Seen and examined this morning with cardiac PA as well as nursing staff. Patient with acute abdominal pain had episode of vomiting. Also febrile and hypotensive. Patient states abdominal pain is diffuse. No chest pain.
Objective
Labs:
12/09/24 06:22
12/09/24 06:22
Labs
Hgb 12.0 g/dL (12.0-16.0) 12/09/24 06:22
Hct 37.9 % (37.0-47.0) 12/09/24 06:22
Plt Count 241 10^3/uL (130-400) 12/09/24 06:22
Sodium 133 mmol/L (135-145) L 12/09/24 06:22
Potassium 4.7 mmol/L (3.5-5.1) 12/09/24 06:22
BUN 54 mg/dl (7-17) H 12/09/24 06:22
Creatinine 1.3 mg/dL (0.6-1.0) H 12/09/24 06:22
Glucose 128 mg/dl (70-99) H 12/09/24 06:22
Vital Signs and I&O:
Vital Signs
Temp Pulse Resp BP Pulse Ox
101.5 F H 79 20 116/60 91
12/09/24 15:00 12/09/24 15:00 12/09/24 15:00 12/09/24 15:00 12/09/24 15:00
Vital Signs
Temp Pulse Resp BP Pulse Ox
101.5 F H 79 20 116/60 91
12/09/24 15:00 12/09/24 15:00 12/09/24 15:00 12/09/24 15:00 12/09/24 15:00
Intake & Output
02/22/25 02/23/25 02/24/25 02/25/25
06:59 06:59 06:59 06:59
Intake Total 960 / 960 300 / 300 480 / 480
Output Total 250 / 250
Balance 960 / 960 300 / 300 480 / 480 -250 / -250
Physical Exam
Physical Exam
GEN: Acutely ill 74-year-old female who appears older than stated age/positive distress due to abdominal pain
HEENT: supple, anicteric, mmm, eomi. facial ecchymoses
LUNGS: Poor effort, bronchovesicular breath sounds decreased bases with crackles
CV: Reg, S1/S2, 1/6 syst LSB
ABD: Distended and firm. Decreased bowel sounds. Positive diffuse tenderness. Scars from prior bowel surgery noted
EXT: Bilateral lower extremities wrapped
--- NOTE | 2024-12-09 18:54 | PTCARENOTE ---
Suppository administered with + results. Moderate soft BM this evening. Patient ABD softer, less distended. Patient mentation improved, able to hold conversation with staff. Daughter at bedside.
[2024-12-09] MEDS: HYDROPHOR TOPICAL (20:10)
[2024-12-09] MEDS: COLACE PO ×2 (20:12→20:22)
[2024-12-09] MEDS: RESTASIS 0.05% OPHTHALMIC EMULSION BOTH EYES (20:24)
[2024-12-09 21:29] LABS: Glucose - Point of Care 120 mg/dl (70-99)
[2024-12-09] MEDS: ZYRTEC PO (22:05)
--- NOTE | 2024-12-09 22:39 | PTCARENOTE ---
RN changed brief; small amount of urine noted on pad. Bladder scan protocol in place, patient bladder scanned for 431 ml. Patient refusing straight cath at this time. Patient states 'I am able to tell when I need to go. I don`t have to go right
now'. Patient encouraged to use call young when she needs to use the bathroom. RN will continue to follow bladder scan protocol. Call young in reach. Education about bladder scan protocol provided to patient.
[2024-12-10] VITALS (7 sets, daily range): BP systolic 105–132; BP diastolic 59–83; O2SAT 97; BMI 22.8
[2024-12-10] MEDS: ZOSYN 50 IV ×4 (02:48→20:18)
--- NOTE | 2024-12-10 02:54 | PTCARENOTE ---
Addendum entered by Cristal Montero RN 12/10/24 03:21:
Rubén CRUZ made aware. No new orders at this time. Will continue to reinforce education to patient.
Original Note:
RN assessed patient`s pad for output. No urinary output noted on pad. RN explained bladder scan protocol again to patient , and that RN would have to rescan patient/straight cath patient. Patient refusing straight cath and bladder scan at this time,
saying 'I feel like I can go soon'. RN confirmed that call young was within reach, and instructed patient to ring for assistance with voiding. Patient denies abdominal pain. Patient`s abdomen is slightly distended, but soft. Distention is unchanged
from assessment in the beginning of the shift.
--- NOTE | 2024-12-10 04:54 | PTCARENOTE ---
Patient bladder scanned at 0445 for 621 ml. Patient states that she feels like she needs to urinate; RN offered to assist patient to bathroom or put the bed dela cruz in place. Patient refused using either method to urinate. Patient states that she needs
to drink something to urinate, even though she has the urge to go. RN explained to patient that she has an NPO diet ordered due to her vomiting episodes during dayshift. Patient states 'that never happened'. Bladder scan protocol reinforced to
patient. Rubén nurse practitioner made aware, no new orders at this time. REMOTE SENSING TECHNOLOGIST to discuss plan of care with patient at the bedside.
--- NOTE | 2024-12-10 05:36 | PTCARENOTE ---
Patient saturated pad. Bed changed. call person VENDING MECHANIC made aware.
[2024-12-10 06:57] LABS: % Basophils 1.1 % (0-2); % Eosinophils 0.5 % (0-6); % Immature Granulocytes 0.3 % (0-0.5); % Lymphocytes 20.2 % (20.5-51.1); % Monocytes 9.8 % (1.7-9.3); % Neutrophils 68.1 % (42.2-75.2); Absolute Lymphocytes 0.7 10^3/uL (1.2-3.4); Absolute Monocytes 0.4 10^3/uL (0.1-0.6); Absolute Neutrophils 2.5 10^3/uL (1.4-6.5); Hematocrit 33.9 % (37.0-47.0); Hemoglobin 10.8 g/dL (12.0-16.0); Mean Corp Hgb Conc. 31.9 g/dL (33.0-37.0); Mean Corpuscular Hgb 27.2 pg (27.0-31.0); Mean Corpuscular Volume 85.4 fL (81.0-99.0); Mean Platelet Volume 10.3 fL (7.4-10.4); Nucleated Red Blood Cells % 0 %; Platelet Count 173 10^3/uL (130-400); Red Blood Cell Count 3.97 10^6/uL (4.20-5.40); Red Cell Dist. Width 16.5 % (11.5-14.5); White Blood Cell Count 3.7 10^3/uL (4.8-10.8)
[2024-12-10 07:01] LABS: Glucose - Point of Care 89 mg/dl (70-99)
[2024-12-10] MEDS: NOVOLOG FLEXPEN-LOW RESISTANCE SC ×3 (07:21→15:53)
[2024-12-10 07:24] LABS: Blood Urea Nitrogen 70 mg/dl (7-17); Carbon Dioxide 36 mmol/L (22-30); Chloride 94 mmol/L (98-107); Estimated Creatinine Clearance 21 ml/min; Glucose 82 mg/dl (70-99); Potassium 4.8 mmol/L (3.5-5.1); Sodium 134 mmol/L (135-145); eGFR 26.05
--- NOTE | 2024-12-10 08:38 | PN.CDI ---
CDI
- -
CDI:
Physician Documentation Request
Admit Date: 12/04/24 21:31
Dear Doctor Antonio,
Please review the following and provide your response in the progress notes.
Clinical Indicators:
PN, 12/09
#Start empiric antibiotics
#Acute hypoxic respiratory failure likely secondary to
#...possible aspiration given recent vomiting this morning
#Sepsis (fever,tachypnea) likely secondary to aspiration
Based on the above and your clinical assessment, please clarify, 'possible aspiration...' and treatment initiated:
Aspiration Pneumonia - indicate substance such as food or vomitus, oils or other solids or liquids
Aspiration Pneumonitis
Other (please specify)
Use of terms such as suspected, likely, concern for, or probable (associated with a specific diagnosis that is being evaluated, monitored, or treated as if it exists) are acceptable and can be coded in the inpatient setting, when documented at the
time of discharge.
Thank you,
Crystal Francisco RN BSN CCDS
CDI Specialist
please contact via tiger text
Please use your independent medical judgment in providing your response.
[2024-12-10] MEDS: NSS (PRESERVATIVE FREE) 10 ML IV (09:13)
[2024-12-10] MEDS: RESTASIS 0.05% OPHTHALMIC EMULSION 1 DROPS BOTH EYES ×2 (09:13→20:20)
[2024-12-10] MEDS: DETROL LA 2 MG PO ×2 (09:14→20:19)
[2024-12-10] MEDS: PROTONIX IV 40 MG IV (09:14)
[2024-12-10] MEDS: TYLENOL 1000 MG PO ×3 (09:14→21:08)
[2024-12-10] MEDS: MAGNESIUM OXIDE 250 MG PO (09:15)
[2024-12-10] MEDS: BENTYL 10 MG PO ×4 (09:16→21:08)
[2024-12-10] MEDS: NEURONTIN 300 MG PO ×3 (09:16→21:08)
[2024-12-10] MEDS: CELEXA 20 MG PO (09:16)
[2024-12-10] MEDS: COLACE 100 MG PO ×2 (09:16→20:18)
[2024-12-10] MEDS: HYDROPHOR TOPICAL (09:17)
[2024-12-10] MEDS: COREG 6.25 MG PO ×2 (09:17→20:19)
[2024-12-10 12:20] LABS: Glucose - Point of Care 77 mg/dl (70-99)
--- NOTE | 2024-12-10 13:00 | W.PN.HOSP.TC ---
Addendum entered and electronically signed by Ryan Alvarez MD 12/10/24 16:17:
Daughter updated over the phone.
Original Note:
Today's Communication/Plan
-
Monitor vital signs see plan
Wean oxygen as tolerated
Start diet
Follow fever curve
Continue with Zosyn for now
Monitor renal function
Bladder scan
Hold Lasix
Assessment / Plan
Assessment / Plan
Physical exam:
General: chronically ill looking
HEENT: Normocephalic, Moist mucous membranes and Atraumatic
Respiratory: Basal crackles.
Cardiac: S1/S2 , + diastolic murmur
GI: Soft, nontender
Musculoskeletal: Edema, Right Upper Extremity and Edema, Left Lower Extremity
Neuro: Nonfocal/grossly intact
Abdominal pain with distention likely secondary to enteritis/ileus and constipation
Now improving
Continue with laxatives, had bowel movement 12/09
Feeling better this morning, will restart diet
CT abdomen/pelvis without any obstruction, consistent with possible enteritis/ileus and constipation
lactate 2
Acute hypoxic respiratory failure likely secondary to possible aspiration pneumonitis given recent vomiting 12/09
Sepsis (fever,tachypnea) likely secondary to aspiration pneumonitis
UA normal, chest x-ray without pneumonia,BCX NGTD
Discontinue further vancomycin, continue Zosyn for now
Currently on 6 L nasal cannula, wean oxygen as tolerated
Follow fever curve, COVID, flu negative
EZEKIEL on CKD3b
Suspect likely secondary to hypotension 12/09
Continue to monitor
Bladder scan
Hold nephrotoxic agents
Acute on chronic congestive heart failure with reduced ejection fraction
Echocardiogram with EF 25%, moderate mitral regurgitation/moderate aortic regurgitation/moderate to severe tricuspid regurgitation.
Hold IV diuresis given EZEKIEL, monitor
Holding Entresto given hypotension. Apparently patient developed itching when she was on bilateral dose of Entresto
Coreg to 6.25 mg BID. holding parametrs
Does not appear to be compliant with Bumex at home
ICD interrogated by cardiology 12/05, No arrhythmia
she follows with Dr Willis from [facility] cardiology. She might change to cardiology service at dose.
Lexiscan nuclear stress test 06/07/2022: Small size defect in anterior apical wall that is fixed, resting EF 27%
Hyponatremia
Monitor
Elevated troponin, likely secondary to nonischemic myocardial injury
No chest pain
Monitor
# S/P ICD in 2022 at [place]
# Bilateral multiple lower extremity venous wounds.
Seems consistent with dermatitis/venous- possible exfoliative type especially with chronicity( years) and on/ off pattern of flare-up
Appearance of open venous appearing wounds/macerated edges/excoriated skin with erythema and tenderness. No swelling. Positive weeping
Continue with wound care
She was recently started on double antibiotics course for presumed cellulitis. open wounds can have superimposed secondary/bacterial infection at times. No fever, no leukocytosis. Was on Keflex and doxy; last day 12/07
Continue with pain control, prefer Dilaudid or oxycodone due to chronic kidney disease. Tylenol TID.
# Sacrum with stage 1 PI, non-blanchable red skin
Follow-up with wound care
# Hyponatremia
#GERD
Protonix
Diabetes mellitus
Patient is on Januvia. Not preferred medicine in heart failure patients..
Insulin sliding scale, Accu-Cheks
a1C 7.1
History of colon cancer status post resection
History of ostomy with reversal
History of SBO
Depression
Per rn case manager, outpatient VN called mobile crisis since patient had suicidal ideation. Currently she denies suicidal ideation. Evaluated by psychiatry and has been cleared.
Continue Celexa
# Diabetic neuropathy, continue with gabapentin
DVT prophylaxis
Lovenox
Full code
PT/OT
Total time spent to see the patient on the floor, examine the patient, review data and lab results, discuss treatment plan with patient, nursing staff around 52 minutes
Anticipated Discharge: > 48 hours
Subjective/Interval History
-
Date of Service: December 10, 2024
Denies nausea
Objective Data
-
Labs:
Laboratory Results
12/10/24
05:35
WBC 3.7 L
Hgb 10.8 L
Hct 33.9 L
Plt Count 173 D
Sodium 134 L
Potassium 4.8
Chloride 94 L
Carbon Dioxide 36 H
BUN 70 H
Creatinine 2.0 H
Glucose 82
Calcium 8.0 L
Vital Signs:
Vital Signs
Temp Pulse Resp BP Pulse Ox
97.8 F 71 18 124/78 97
12/10/24 11:23 12/10/24 11:23 12/10/24 11:23 12/10/24 11:23 12/10/24 11:23
I&O
12/09/24 12/10/24 12/11/24
06:59 06:59 06:59
Intake Total 480 / 480
Output Total 250 / 250
Balance 480 / 480 -250 / -250
--- NOTE | 2024-12-10 14:02 | W.PN.CARDCBS ---
Addendum entered and electronically signed by Howard Lora DO 12/10/24 21:21:
I saw and examined the patient.
The Special Education Associate's note was reviewed and I agree with the note.
Comment:
Plan:
She diuresed over 20 lbs this admission
Now lasix, entresto and aldactone on hold given EZEKIEL
Cont supportive care
EF 25-30%, mod to severe TR with mod MR and AR
ICD interrogation without arrhythmia.
Work up of fever/abd pain as per primary service
Original Note:
Today's Communication / Plan
-
holding nephrotoxic agents
follow Cr
wean supp O2
work up of fever/abd pain per primary service
Impression / Plan
-
Primary Gig Tender: Dr. Thorpe of [facility]
Assessment:
Presentation with weight gain, orthopnea, LE edema
Acute on chronic HFrEF
Elevated troponin
Recent fall with facial ecchymoses
CKD stage IIIB
High-grade AV block s/p PPM
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
Hypertension
Hyperlipidemia
Qaz-nakidfb-mwcghgogh diabetes type 2
Neuropathy
GERD
Depression
ECHO 02/02/24: EF 20 to 25%, grade 2 diastolic dysfunction, basal miller move best with moderate hypokinesis, rest of wall severely hypokinetic, mild concentric LVH, moderate MR, moderate TR, PAP 55 to 60 mmHg, mild AR, mildly dilated ascending aorta
ECHO 12/05/2024: EF 25 to 30%, mild concentric LVH, global hypokinesis, MAC, mitral sclerosis with peak/mean gradient 7/4 mmHg, moderate MR, mild , moderate AR with peak/mean gradients 23/13 mmHg, moderate to severe TR, PAP 65 to 70 mmHg, aortic
root and ascending aorta dilation
06/07/2022: Small size defect in anterior apical wall that is fixed, resting EF 27%
Plan:
-she presented with evidence of acute CHF and is diuresing well. if accurate, weights down 22 pounds from admission
-CHF education
-wean supp O2 as able
-yesterday was noted to have fever, abd pain, hypotension and today Cr up to 2.0. CTAP with evidence of mild enteritis/ileus. blood cultures negative thus far. mgmt per primary service
-due to EZEIKEL, holding IV lasix and OP entresto and spironolactone. resume as able
-EF by echo 25-30% to mod MR/AR/mod to severe TR. continue coreg
-av paced on review of tele. ICD interrogation 12/05 without arrhythmia
Progress Note - Gig Tender
Subjective
Date of Service: December 10, 2024
reports breathing ok. no CP
Objective
Labs:
12/10/24 05:35
12/10/24 05:35
Labs
Hgb 10.8 g/dL (12.0-16.0) L 12/10/24 05:35
Hct 33.9 % (37.0-47.0) L 12/10/24 05:35
Plt Count 173 10^3/uL (130-400) D 12/10/24 05:35
Sodium 134 mmol/L (135-145) L 12/10/24 05:35
Potassium 4.8 mmol/L (3.5-5.1) 12/10/24 05:35
BUN 70 mg/dl (7-17) H 12/10/24 05:35
Creatinine 2.0 mg/dL (0.6-1.0) H 12/10/24 05:35
Glucose 82 mg/dl (70-99) 12/10/24 05:35
Vital Signs and I&O:
Vital Signs
Temp Pulse Resp BP Pulse Ox
97.8 F 71 18 124/78 97
12/10/24 11:23 12/10/24 11:23 12/10/24 11:23 12/10/24 11:23 12/10/24 11:23
Vital Signs
Temp Pulse Resp BP Pulse Ox
97.8 F 71 18 124/78 97
12/10/24 11:23 12/10/24 11:23 12/10/24 11:23 12/10/24 11:23 12/10/24 11:23
Intake & Output
12/08/24 12/09/24 12/10/24 12/11/24
07:59 07:59 07:59 07:59
Intake Total 300 / 300 480 / 480
Output Total 250 / 250
Balance 300 / 300 480 / 480 -250 / -250
Physical Exam
Physical Exam
GEN: No distress, awake, alert, oriented x3.
HEENT: supple, anicteric, mmm, eomi. facial ecchymoses
LUNGS: Few exp wheezes B/L
CV: Reg, S1/S2, 1/6 syst LSB
ABD: soft, BS+, NT/ND
EXT: No cyanosis, clubbing. 1+ edema of B/L LE with dressings in place
NEURO: Gross non-focal
SKIN: Warm, pink, dry. No rash
[2024-12-10 17:06] LABS: Glucose - Point of Care 103 mg/dl (70-99)
[2024-12-10] MEDS: HEPARIN 5000 UNITS SC (20:19)
[2024-12-10] MEDS: ZYRTEC 5 MG PO (21:11)
[2024-12-10 21:51] LABS: Glucose - Point of Care 99 mg/dl (70-99)
[2024-12-11] MEDS: ZOSYN 50 IV ×4 (02:09→20:23)
[2024-12-11 03:14] VITALS: BP 134/78
[2024-12-11 05:43] VITALS: BMI 23.1
[2024-12-11 06:41] LABS: % Basophils 1.1 % (0-2); % Eosinophils 3.4 % (0-6); % Immature Granulocytes 0.5 % (0-0.5); % Lymphocytes 21.1 % (20.5-51.1); % Monocytes 12.9 % (1.7-9.3); Absolute Eosinophils 0.1 10^3/uL (0-0.7); Absolute Lymphocytes 0.8 10^3/uL (1.2-3.4); Absolute Monocytes 0.5 10^3/uL (0.1-0.6); Absolute Neutrophils 2.3 10^3/uL (1.4-6.5); Hematocrit 34.8 % (37.0-47.0); Hemoglobin 10.8 g/dL (12.0-16.0); Mean Corpuscular Hgb 26.8 pg (27.0-31.0); Mean Corpuscular Volume 86.4 fL (81.0-99.0); Mean Platelet Volume 10.2 fL (7.4-10.4); Nucleated Red Blood Cells % 0 %; Platelet Count 175 10^3/uL (130-400); Red Blood Cell Count 4.03 10^6/uL (4.20-5.40); Red Cell Dist. Width 16.3 % (11.5-14.5); White Blood Cell Count 3.8 10^3/uL (4.8-10.8)
[2024-12-11 07:04] LABS: Blood Urea Nitrogen 63 mg/dl (7-17); Calcium 8.1 mg/dl (8.4-10.2); Carbon Dioxide 37 mmol/L (22-30); Chloride 92 mmol/L (98-107); Estimated Creatinine Clearance 21 ml/min; Glucose 79 mg/dl (70-99); Potassium 4.6 mmol/L (3.5-5.1); Sodium 135 mmol/L (135-145); eGFR 26.05
[2024-12-11 07:30] VITALS: BP 128/76
[2024-12-11 07:31] LABS: Glucose - Point of Care 86 mg/dl (70-99)
[2024-12-11] MEDS: NOVOLOG FLEXPEN-LOW RESISTANCE SC ×3 (07:34→17:07)
[2024-12-11] MEDS: HEPARIN 5000 UNITS SC ×2 (08:03→20:23)
[2024-12-11] MEDS: COREG 6.25 MG PO ×2 (08:03→20:24)
[2024-12-11] MEDS: CELEXA 20 MG PO (08:03)
[2024-12-11] MEDS: COLACE 100 MG PO ×2 (08:03→20:24)
[2024-12-11] MEDS: DETROL LA 2 MG PO ×2 (08:04→20:26)
[2024-12-11] MEDS: NEURONTIN 300 MG PO ×2 (08:04→20:23)
[2024-12-11] MEDS: MAGNESIUM OXIDE 250 MG PO (08:04)
[2024-12-11] MEDS: RESTASIS 0.05% OPHTHALMIC EMULSION 1 DROPS BOTH EYES ×2 (08:04→20:24)
[2024-12-11] MEDS: TYLENOL 1000 MG PO ×3 (08:05→23:28)
[2024-12-11] MEDS: NSS (PRESERVATIVE FREE) 10 ML IV (08:05)
[2024-12-11] MEDS: BENTYL 10 MG PO ×4 (08:05→23:28)
[2024-12-11] MEDS: PROTONIX IV 40 MG IV (08:05)
[2024-12-11] MEDS: HYDROPHOR 1 APPLIC TOPICAL (08:06)
[2024-12-11 11:12] VITALS: BP 139/84
--- NOTE | 2024-12-11 11:28 | W.PN.CARDCBS ---
Today's Communication / Plan
-
With increased cr, her Lasix, Entresto and Aldactone are on hold
Cr remains at 2
EF 25-30% by echo with mod MR/AR/mod to severe TR.
Continue coreg
ICD interrogation 12/05 without arrhythmia
Cont work up and tx of ileus and pneumonitis
Impression / Plan
-
.
Primary Dehydration Unit Operator: Dr. Thorpe of [facility]
Impression:
Presentation with weight gain, orthopnea, LE edema
Acute on chronic HFrEF
Elevated troponin
Aspiration pneumonitis
Recent fall with facial ecchymoses
CKD stage IIIB
High-grade AV block s/p PPM
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
Hypertension
Hyperlipidemia
Slo-rwncjgu-bjhkiejas diabetes type 2
Neuropathy
GERD
Depression
ECHO 02/02/24: EF 20 to 25%, grade 2 diastolic dysfunction, basal miller move best with moderate hypokinesis, rest of wall severely hypokinetic, mild concentric LVH, moderate MR, moderate TR, PAP 55 to 60 mmHg, mild AR, mildly dilated ascending aorta
ECHO 12/05/2024: EF 25 to 30%, mild concentric LVH, global hypokinesis, MAC, mitral sclerosis with peak/mean gradient 7/4 mmHg, moderate MR, mild , moderate AR with peak/mean gradients 23/13 mmHg, moderate to severe TR, PAP 65 to 70 mmHg, aortic
root and ascending aorta dilation
06/07/2022: Small size defect in anterior apical wall that is fixed, resting EF 27%
Plan:
-she presented with evidence of acute CHF and is diuresing well. if accurate, weights down over 20 pounds from admission
With increased cr, her Lasix, Entresto and Aldactone are on hold
Cr remains at 2
EF 25-30% by echo with mod MR/AR/mod to severe TR.
Continue coreg
ICD interrogation 12/05 without arrhythmia
Cont work up and tx of ileus and pneumonitis
Progress Note - Dehydration Unit Operator
Subjective
Date of Service: December 11, 2024
Pt seen and examined. No chest pain or shortness of breath. Feels tired
Objective
Labs:
12/11/24 05:52
12/11/24 05:52
Labs
Hgb 10.8 g/dL (12.0-16.0) L 12/11/24 05:52
Hct 34.8 % (37.0-47.0) L 12/11/24 05:52
Plt Count 175 10^3/uL (130-400) 12/11/24 05:52
Sodium 135 mmol/L (135-145) 12/11/24 05:52
Potassium 4.6 mmol/L (3.5-5.1) 12/11/24 05:52
BUN 63 mg/dl (7-17) H 12/11/24 05:52
Creatinine 2.0 mg/dL (0.6-1.0) H 12/11/24 05:52
Glucose 79 mg/dl (70-99) 12/11/24 05:52
Vital Signs and I&O:
Vital Signs
Temp Pulse Resp BP Pulse Ox
97.8 F 70 20 139/84 95
12/11/24 11:12 12/11/24 11:12 12/11/24 11:12 12/11/24 11:12 12/11/24 11:12
Vital Signs
Temp Pulse Resp BP Pulse Ox
97.8 F 70 20 139/84 95
12/11/24 11:12 12/11/24 11:12 12/11/24 11:12 12/11/24 11:12 12/11/24 11:12
Intake & Output
12/09/24 12/10/24 12/11/24 12/12/24
06:59 06:59 06:59 06:59
Intake Total 480 / 480 480 / 480 240 / 240
Output Total 250 / 250
Balance 480 / 480 -250 / -250 480 / 480 240 / 240
Physical Exam
Physical Exam
General: No acute distress, AAOX3, facial ecchymosis
Neck: Negative JVD
Heart: Regular, Negative S3 positive S1/S2, Negative S4, No murmur
Lungs: CTA b/l, negative wheezes/rales/rhonchi
Abd: Positive BS, NT/ND, neg rebound/rigidity/guarding
Ext: Negative cyanosis/clubbing. leg wraps c/d/i. Mild LE b/l edema
Neuro: nonfocal
--- NOTE | 2024-12-11 11:45 | WOUNDNOTE ---
RD (R POSTERIOR; L MEDIAL)
--- NOTE | 2024-12-11 11:45 | WOUNDNOTE ---
[facility] RN note: Patient seen during pressure injury prevention rounds with nurse caravan park and camping ground manager Micaela and RN Elver. Patient's LE wounds look improved compared to last week's photos. Patient has a small ro scab on her L heel which does not appear new
(suspect POA). LE edema down. Feet warm. Sacral skin blanchable mild red and intact. R heel blanchable red and intact. Protective foam dressing changed on heels. LE dressings changed. Knee high Konstantin wraps applied. Heels off bed with pillow. Air chair
cushion given. Patient incontinent of smear of soft brown stool. Melita care given by nurse caravan park and camping ground manager Micaela. Patient reports a fair appetite. Protective silicone border foam applied to sacrum. Will follow as needed.
--- NOTE | 2024-12-11 11:50 | W.PN.HOSP.TC ---
Today's Communication/Plan
-
Monitor vital signs
see plan
Creatinine today, continue to monitor
Hold diuresis
Continue with antibiotics
Wean oxygen as tolerated
PT/OT
Follow fever curve
Assessment / Plan
Assessment / Plan
Physical exam:
General: chronically ill looking
HEENT: Normocephalic, Moist mucous membranes and Atraumatic
Respiratory: Basal crackles.
Cardiac: S1/S2 , + diastolic murmur
GI: Soft, nontender
Musculoskeletal: Edema, Right Upper Extremity and Edema, Left Lower Extremity
Neuro: Nonfocal/grossly intact
Abdominal pain with distention likely secondary to enteritis/ileus and constipation
Now improving
Continue with laxatives, had bowel movement 12/09
Feeling better this morning, will restart diet
CT abdomen/pelvis without any obstruction, consistent with possible enteritis/ileus and constipation
lactate 2
Acute hypoxic respiratory failure likely secondary to possible aspiration pneumonitis given recent vomiting 12/09
Sepsis (fever,tachypnea) likely secondary to aspiration pneumonitis
UA normal, chest x-ray without pneumonia,BCX NGTD
Discontinue further vancomycin, continue Zosyn for now
now on 3 L nasal cannula, wean oxygen as tolerated
Follow fever curve, COVID, flu negative
EZEKIEL on CKD3b
Suspect likely secondary to hypotension 12/09
Continue to monitor, if creatinine does not improve then will need nephrology evaluation
Bladder scan
Hold nephrotoxic agents
Acute on chronic congestive heart failure with reduced ejection fraction
Echocardiogram with EF 25%, moderate mitral regurgitation/moderate aortic regurgitation/moderate to severe tricuspid regurgitation.
Hold IV diuresis given EZEKIEL, monitor
Holding Entresto given hypotension. Apparently patient developed itching when she was on bilateral dose of Entresto
Coreg to 6.25 mg BID. holding parametrs
Does not appear to be compliant with Bumex at home
ICD interrogated by cardiology 12/05, No arrhythmia
she follows with Dr Willis from [facility] cardiology. She might change to cardiology service at dose.
Lexiscan nuclear stress test 06/07/2022: Small size defect in anterior apical wall that is fixed, resting EF 27%
Hyponatremia
Monitor
Elevated troponin, likely secondary to nonischemic myocardial injury
No chest pain
Monitor
# S/P ICD in 2022 at [place]
# Bilateral multiple lower extremity venous wounds.
Seems consistent with dermatitis/venous- possible exfoliative type especially with chronicity( years) and on/ off pattern of flare-up
Appearance of open venous appearing wounds/macerated edges/excoriated skin with erythema and tenderness. No swelling. Positive weeping
Continue with wound care
She was recently started on double antibiotics course for presumed cellulitis. open wounds can have superimposed secondary/bacterial infection at times. No fever, no leukocytosis. Was on Keflex and doxy; last day 12/07
Continue with pain control, prefer Dilaudid or oxycodone due to chronic kidney disease. Tylenol TID.
# Sacrum with stage 1 PI, non-blanchable red skin
Follow-up with wound care
# Hyponatremia
#GERD
Protonix
Diabetes mellitus
Patient is on Januvia. Not preferred medicine in heart failure patients..
Insulin sliding scale, Accu-Cheks
a1C 7.1
History of colon cancer status post resection
History of ostomy with reversal
History of SBO
Depression
Per case monitor, outpatient VN called mobile crisis since patient had suicidal ideation. Currently she denies suicidal ideation. Evaluated by psychiatry and has been cleared.
Continue Celexa
# Diabetic neuropathy, continue with gabapentin
DVT prophylaxis
Lovenox
Full code
PT/OT
Total time spent to see the patient on the floor, examine the patient, review data and lab results, discuss treatment plan with patient, nursing staff around 52 minutes
Anticipated Discharge: > 48 hours
Subjective/Interval History
-
Date of Service: December 11, 2024
Denies pain
Objective Data
-
Labs:
Laboratory Results
12/11/24
05:52
WBC 3.8 L
Hgb 10.8 L
Hct 34.8 L
Plt Count 175
Sodium 135
Potassium 4.6
Chloride 92 L
Carbon Dioxide 37 H
BUN 63 H
Creatinine 2.0 H
Glucose 79
Calcium 8.1 L
Vital Signs:
Vital Signs
Temp Pulse Resp BP Pulse Ox
97.8 F 70 20 139/84 95
12/11/24 11:12 12/11/24 11:12 12/11/24 11:12 12/11/24 11:12 12/11/24 11:12
I&O
12/10/24 12/11/24 12/12/24
06:59 06:59 06:59
Intake Total 480 / 480 240 / 240
Output Total 250 / 250
Balance -250 / -250 480 / 480 240 / 240
[2024-12-11 12:00] LABS: Glucose - Point of Care 110 mg/dl (70-99)
[2024-12-11 15:13] VITALS: BP 128/68
--- NOTE | 2024-12-11 15:17 | CM ---
Met w/ pt and daughter at bedside. Daughter shared that she did reach out to [facility] regarding concerns surrounding pt's non-compliance. Daughter stated some things were false and misunderstood but is aware that [facility] is unable to accept pt back. CM
stated pt would need a new provider as pt is being rec for VN for wound care. CM discussed therapy evaluation and current recommendation of skilled rehab. Daughter shared that pt should go to rehab but don't think pt would be agreeable. Pt stated
she isn't sure if she wants rehab and denies PT seeing her though eval/note was documented yesterday. Pt understands she will need a new HH provider for VN and poss home PT if she chooses to not go to rehab.
Plan: SNF vs Home w/ HH
[2024-12-11 16:58] LABS: Glucose - Point of Care 99 mg/dl (70-99)
[2024-12-11 19:49] VITALS: BP 169/94
[2024-12-11 21:54] LABS: Glucose - Point of Care 78 mg/dl (70-99)
[2024-12-11] MEDS: ZYRTEC PO (23:25)
[2024-12-11 23:46] VITALS: BP 136/70
[2024-12-12] VITALS (7 sets, daily range): BP systolic 130–158; BP diastolic 68–86; PULSE 68; O2SAT 95; BMI 22.7
[2024-12-12] MEDS: ZOSYN 50 IV ×4 (01:11→20:01)
--- NOTE | 2024-12-12 06:26 | PTCARENOTE ---
Addendum entered by Cristal Montero RN 12/12/24 06:30:
No new orders for patient, will make dayshift RN aware.
Original Note:
Patient had two large liquid bowel movements over night. Bed sheets and pads changed. Isamar CRUZ made aware, awaiting orders.
[2024-12-12 06:39] LABS: % Eosinophils 3.8 % (0-6); % Immature Granulocytes 0.5 % (0-0.5); % Lymphocytes 21.6 % (20.5-51.1); % Monocytes 15.7 % (1.7-9.3); % Neutrophils 57.4 % (42.2-75.2); Absolute Eosinophils 0.2 10^3/uL (0-0.7); Absolute Lymphocytes 0.9 10^3/uL (1.2-3.4); Absolute Monocytes 0.6 10^3/uL (0.1-0.6); Absolute Neutrophils 2.3 10^3/uL (1.4-6.5); Hematocrit 34.9 % (37.0-47.0); Hemoglobin 10.7 g/dL (12.0-16.0); Mean Corp Hgb Conc. 30.7 g/dL (33.0-37.0); Mean Corpuscular Hgb 26.8 pg (27.0-31.0); Mean Corpuscular Volume 87.5 fL (81.0-99.0); Mean Platelet Volume 10.4 fL (7.4-10.4); Nucleated Red Blood Cells % 0 %; Platelet Count 176 10^3/uL (130-400); Red Blood Cell Count 3.99 10^6/uL (4.20-5.40); Red Cell Dist. Width 16.2 % (11.5-14.5); White Blood Cell Count 3.9 10^3/uL (4.8-10.8)
[2024-12-12 07:21] LABS: Blood Urea Nitrogen 50 mg/dl (7-17); Carbon Dioxide 36 mmol/L (22-30); Chloride 96 mmol/L (98-107); Estimated Creatinine Clearance 23 ml/min; Glucose 74 mg/dl (70-99); Potassium 4.6 mmol/L (3.5-5.1); Sodium 136 mmol/L (135-145); eGFR 29.57
[2024-12-12 07:28] LABS: Glucose - Point of Care 96 mg/dl (70-99)
[2024-12-12] MEDS: NOVOLOG FLEXPEN-LOW RESISTANCE SC ×3 (08:34→16:50)
[2024-12-12] MEDS: PROTONIX IV 40 MG IV (09:51)
[2024-12-12] MEDS: NSS (PRESERVATIVE FREE) 10 ML IV (09:52)
[2024-12-12] MEDS: MAGNESIUM OXIDE 250 MG PO (09:52)
[2024-12-12] MEDS: RESTASIS 0.05% OPHTHALMIC EMULSION 1 DROPS BOTH EYES ×2 (09:52→20:09)
[2024-12-12] MEDS: TYLENOL 1000 MG PO ×3 (09:53→21:40)
[2024-12-12] MEDS: COREG 6.25 MG PO ×2 (09:53→20:02)
[2024-12-12] MEDS: CELEXA 20 MG PO (09:53)
[2024-12-12] MEDS: NEURONTIN 300 MG PO ×2 (09:53→19:59)
[2024-12-12] MEDS: DETROL LA 2 MG PO ×2 (09:53→19:59)
[2024-12-12] MEDS: COLACE 100 MG PO ×2 (09:54→19:59)
[2024-12-12] MEDS: BENTYL 10 MG PO ×4 (09:54→21:40)
[2024-12-12] MEDS: HEPARIN 5000 UNITS SC ×2 (09:54→20:00)
[2024-12-12] MEDS: VISBIOME 1 CAP PO (09:55)
[2024-12-12] MEDS: HYDROPHOR 1 APPLIC TOPICAL (09:56)
[2024-12-12 12:36] LABS: Glucose - Point of Care 87 mg/dl (70-99)
--- NOTE | 2024-12-12 12:40 | W.PN.HOSP.TC ---
Today's Communication/Plan
-
Monitor vitals
See plan
Continue with antibiotics
Wean oxygen as tolerated
Continue to hold diuresis and closely monitor
Monitor renal function
PT/OT
Patient appears to be agreeable for SNF
Assessment / Plan
Assessment / Plan
Physical exam:
General: chronically ill looking
HEENT: Normocephalic, Moist mucous membranes and Atraumatic
Respiratory: Basal crackles.
Cardiac: S1/S2 , + diastolic murmur
GI: Soft, nontender
Musculoskeletal: Edema, Right Upper Extremity and Edema, Left Lower Extremity
Neuro: Nonfocal/grossly intact
Abdominal pain with distention likely secondary to enteritis/ileus and constipation
Now improving
Continue with laxatives, now had bowel movement
CT abdomen/pelvis without any obstruction, consistent with possible enteritis/ileus and constipation
lactate 2
Acute hypoxic respiratory failure likely secondary to possible aspiration pneumonitis given recent vomiting 12/09
Sepsis (fever,tachypnea) likely secondary to aspiration pneumonitis
UA normal, chest x-ray without pneumonia,BCX NGTD
Discontinue further vancomycin, continue Zosyn for now
now on 3 L nasal cannula, wean oxygen as tolerated
Follow fever curve, COVID, flu negative
EZEKIEL on CKD3b
Suspect likely secondary to hypotension 12/09
Continue to monitor, if creatinine does not improve then will need nephrology evaluation
Bladder scan
Hold nephrotoxic agents
Acute on chronic congestive heart failure with reduced ejection fraction
Echocardiogram with EF 25%, moderate mitral regurgitation/moderate aortic regurgitation/moderate to severe tricuspid regurgitation.
Hold IV diuresis given EZEKIEL, monitor
Holding Entresto given hypotension. Apparently patient developed itching when she was on bilateral dose of Entresto
Coreg to 6.25 mg BID. holding parameters
Does not appear to be compliant with Bumex at home
ICD interrogated by cardiology 12/05, No arrhythmia
she follows with Dr Willis from [facility] cardiology. She might change to cardiology service at dose.
Lexiscan nuclear stress test 06/07/2022: Small size defect in anterior apical wall that is fixed, resting EF 27%
Hyponatremia
Monitor
Elevated troponin, likely secondary to nonischemic myocardial injury
No chest pain
Monitor
# S/P ICD in 2022 at [place]
# Bilateral multiple lower extremity venous wounds.
Seems consistent with dermatitis/venous- possible exfoliative type especially with chronicity( years) and on/ off pattern of flare-up
Appearance of open venous appearing wounds/macerated edges/excoriated skin with erythema and tenderness. No swelling.
Continue with wound care
She was recently started on double antibiotics course for presumed cellulitis. open wounds can have superimposed secondary/bacterial infection at times. No fever, no leukocytosis. Was on Keflex and doxy; last day 12/07
Continue with pain control, prefer Dilaudid or oxycodone due to chronic kidney disease. Tylenol TID.
# Sacrum with stage 1 PI, non-blanchable red skin
Follow-up with wound care
# Hyponatremia
#GERD
Protonix
Diabetes mellitus
Patient is on Januvia. Not preferred medicine in heart failure patients..
Insulin sliding scale, Accu-Cheks
a1C 7.1
History of colon cancer status post resection
History of ostomy with reversal
History of SBO
Depression
Per bilingual case manager, outpatient VN called mobile crisis since patient had suicidal ideation. Currently she denies suicidal ideation. Evaluated by psychiatry and has been cleared.
Continue Celexa
# Diabetic neuropathy, continue with gabapentin
DVT prophylaxis
Lovenox
Full code
PT/OT
Total time spent to see the patient on the floor, examine the patient, review data and lab results, discuss treatment plan with patient, nursing staff around 51 minutes
Anticipated Discharge: 24 - 48 hours
Subjective/Interval History
-
Date of Service: December 12, 2024
Denies nausea
Objective Data
-
Labs:
Laboratory Results
12/12/24
05:50
WBC 3.9 L
Hgb 10.7 L
Hct 34.9 L
Plt Count 176
Sodium 136
Potassium 4.6
Chloride 96 L
Carbon Dioxide 36 H
BUN 50 H
Creatinine 1.8 H
Glucose 74
Calcium 8.0 L
Vital Signs:
Vital Signs
Temp Pulse Resp BP Pulse Ox
97.9 F 71 16 137/81 95
12/12/24 11:30 12/12/24 11:30 12/12/24 11:30 12/12/24 11:30 12/12/24 11:30
I&O
12/11/24 12/12/24 12/13/24
06:59 06:59 06:59
Intake Total 480 / 480 960 / 960
Balance 480 / 480 960 / 960
--- NOTE | 2024-12-12 15:55 | W.PN.CARDCBS ---
Addendum entered and electronically signed by Arden Greenwood MD 12/12/24 17:09:
Attending addendum: Patient seen and examined. PA note reviewed and findings independently confirmed by me. Briefly, this is a 74-year-old female with a past medical history notable for CKD, hypertension, hyperlipidemia, and high degree AV block
status post pacemaker.
-She has a history of LV dysfunction with an estimated ejection fraction of 25-30% as well as moderate mitral regurgitation and mild /moderate AI. Severe pulmonary hypertension is present with estimated PAP of 65-70 mmHg.
GEN: AAO x 3. Lying in bed in no acute distress
HEENT: Periorbital ecchymosis bilaterally. Sclera anicteric
LUNGS: Clear anteriorly. No wheezing
CV: Regular rate and rhythm. II/ murmur USB and II/
RECOMMENDATION:
-hold ARNI / spironolactone in setting of progressive renal insufficiency. Today decreased
-If Cr. continues to improve then will restart meds
-Will follow
Original Note:
Today's Communication / Plan
-
Continue to hold lasix, Entresto, and spironolactone
Follow renal function in AM and resume above medications as able.
Continue carvedilol
Wean O2 as able.
Impression / Plan
-
Primary Dispensing And Measuring Optician: Dr. Thorpe of [facility]
Impression:
Presented with weight gain, orthopnea, LE edema
Acute on chronic HFrEF
Elevated troponin
Aspiration pneumonitis
Recent fall with facial ecchymoses
CKD stage IIIB
High-grade AV block s/p PPM
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
Hypertension
Hyperlipidemia
Eqm-hrsbseu-gauwgkaso diabetes type 2
Neuropathy
GERD
Depression
ECHO 02/02/2024: EF 20 to 25%, grade 2 diastolic dysfunction, basal miller move best with moderate hypokinesis, rest of wall severely hypokinetic, mild concentric LVH, moderate MR, moderate TR, PAP 55 to 60 mmHg, mild AR, mildly dilated ascending aorta
ECHO 12/05/2024: EF 25 to 30%, mild concentric LVH, global hypokinesis, MAC, mitral sclerosis with peak/mean gradient 7/4 mmHg, moderate MR, mild , moderate AR with peak/mean gradients 23/13 mmHg, moderate to severe TR, PAP 65 to 70 mmHg, aortic
root and ascending aorta dilation
Lexiscan nuclear stress test 06/07/2022: Small size defect in anterior apical wall that is fixed, resting EF 27%
Plan:
-Presented with weight gain, orthopnea, and LE edema. Admitted with acute heart failure.
-Diuresed over 20 lbs, but then developed EZEKIEL w/ creat up to 2.0 on 12/10.
-Lasix, Entresto, and spironolactone on hold.
-Creat down to 1.8 12/12. Will follow up w/ AM labs and resume above medications as renal function allows.
-Weight remains improved, down to 128 lbs on 12/12.
-Echo 12/10 with EF 25-30% with moderate MR, moderate AR, and moderate to severe TR as noted above.
-Continues on coreg alone for medical therapy as Entresto and spironolactone on hold. Resume as able.
-Remains on supplemental O2, but down to 2L. No SOB.
-ICD interrogation 12/05 without arrhythmia
-Continue management of abdominal pain per primary service.
HPI: Patient is a 74 yo F with PMH of chronic kidney disease, hypertension, dyslipidemia, high-grade AV block with pacemaker mediated cardiomyopathy status post Medtronic BiV ICD who has been struggling within the last several months with volume
overload. By review of outpatient notes, her primary embroidery supervisor had started her on bumetanide, Jardiance, and was transition from losartan to Entresto. She stopped taking Jardiance due to eye dryness. The beginning of November she had an
episode where she fell after coming up the stairs into the kitchen and bruised her face. She denies loss of consciousness with the event. She reports weight gain of 25 pounds with significant bilateral lower extremity edema with weeping,
orthopnea. At office visit 11/20 her Bumex dose was increased to 1 mg twice daily, however patient tells me she has only been taking 1 mg daily. In office visit 11/20 she was recommended going to the emergency room but she refused. By last
echocardiogram 02/02/2024, EF 20 to 25% with moderate MR, moderate TR, PAP 55 to 60 mmHg. proBNP on arrival greater than 27,000. Cardiology consulted for assistance with CHF management.
Progress Note - Dispensing And Measuring Optician
Subjective
Date of Service: December 12, 2024
Feeling well, but notes she is tired today. No SOB or chest pain.
Objective
Labs:
12/12/24 05:50
12/12/24 05:50
Labs
Hgb 10.7 g/dL (12.0-16.0) L 12/12/24 05:50
Hct 34.9 % (37.0-47.0) L 12/12/24 05:50
Plt Count 176 10^3/uL (130-400) 12/12/24 05:50
Sodium 136 mmol/L (135-145) 12/12/24 05:50
Potassium 4.6 mmol/L (3.5-5.1) 12/12/24 05:50
BUN 50 mg/dl (7-17) H 12/12/24 05:50
Creatinine 1.8 mg/dL (0.6-1.0) H 12/12/24 05:50
Glucose 74 mg/dl (70-99) 12/12/24 05:50
Vital Signs and I&O:
Vital Signs
Temp Pulse Resp BP Pulse Ox
97.8 F 78 20 130/68 96
12/12/24 15:55 12/12/24 15:55 12/12/24 15:55 12/12/24 15:55 12/12/24 15:55
Vital Signs
Temp Pulse Resp BP Pulse Ox
97.8 F 78 20 130/68 96
12/12/24 15:55 12/12/24 15:55 12/12/24 15:55 12/12/24 15:55 12/12/24 15:55
Intake & Output
12/10/24 12/11/24 12/12/24 12/13/24
06:59 06:59 06:59 06:59
Intake Total 480 / 480 960 / 960
Output Total 250 / 250
Balance -250 / -250 480 / 480 960 / 960
Physical Exam
Physical Exam
GEN: No distress, awake, alert, oriented x3
HEENT: supple, anicteric, mmm
LUNGS: CTA b/l, no wheezes/rales
CV: Reg, S1/S2, 1/6 syst murmur
EXT: No clubbing or cyanosis. KALPESH wraps to b/l LE
NEURO: Gross non-focal
SKIN: Warm, dry, no rash
[2024-12-12 16:48] LABS: Glucose - Point of Care 93 mg/dl (70-99)
[2024-12-12 21:35] LABS: Glucose - Point of Care 159 mg/dl (70-99)
[2024-12-12] MEDS: ZYRTEC 5 MG PO (21:38)
[2024-12-13] MEDS: ZOSYN 50 IV ×4 (02:05→20:08)
[2024-12-13 03:30] VITALS: BP 153/87
[2024-12-13 06:00] VITALS: BMI 22.9
[2024-12-13 07:00] LABS: Hematocrit 34.9 % (37.0-47.0); Hemoglobin 10.7 g/dL (12.0-16.0); Mean Corp Hgb Conc. 30.7 g/dL (33.0-37.0); Mean Corpuscular Hgb 27.1 pg (27.0-31.0); Mean Corpuscular Volume 88.4 fL (81.0-99.0); Mean Platelet Volume 10.1 fL (7.4-10.4); Platelet Count 165 10^3/uL (130-400); Red Blood Cell Count 3.95 10^6/uL (4.20-5.40); Red Cell Dist. Width 16.1 % (11.5-14.5); White Blood Cell Count 4.2 10^3/uL (4.8-10.8)
[2024-12-13 07:05] LABS: Blood Urea Nitrogen 40 mg/dl (7-17); Carbon Dioxide 33 mmol/L (22-30); Chloride 98 mmol/L (98-107); Estimated Creatinine Clearance 26 ml/min; Glucose 93 mg/dl (70-99); Potassium 4.2 mmol/L (3.5-5.1); Sodium 136 mmol/L (135-145); eGFR 34.05
[2024-12-13 07:30] LABS: Glucose - Point of Care 102 mg/dl (70-99)
[2024-12-13] MEDS: NOVOLOG FLEXPEN-LOW RESISTANCE SC ×3 (07:58→17:42)
[2024-12-13] MEDS: RESTASIS 0.05% OPHTHALMIC EMULSION 1 DROPS BOTH EYES ×2 (08:23→21:29)
[2024-12-13] MEDS: PROTONIX IV 40 MG IV (08:23)
[2024-12-13] MEDS: MAGNESIUM OXIDE 250 MG PO (08:24)
[2024-12-13] MEDS: NSS (PRESERVATIVE FREE) 10 ML IV (08:24)
[2024-12-13] MEDS: HEPARIN 5000 UNITS SC ×2 (08:24→20:07)
[2024-12-13] MEDS: TYLENOL 1000 MG PO ×3 (08:25→21:29)
[2024-12-13] MEDS: DETROL LA 2 MG PO ×2 (08:25→20:05)
[2024-12-13] MEDS: COLACE 100 MG PO ×2 (08:25→20:07)
[2024-12-13] MEDS: NEURONTIN 300 MG PO ×2 (08:25→20:06)
[2024-12-13] MEDS: HYDROPHOR 1 APPLIC TOPICAL (08:26)
[2024-12-13] MEDS: CELEXA 20 MG PO (08:26)
[2024-12-13] MEDS: BENTYL 10 MG PO ×4 (08:26→21:29)
[2024-12-13] MEDS: COREG 6.25 MG PO ×2 (08:26→20:06)
[2024-12-13] MEDS: VISBIOME 1 CAP PO (08:26)
[2024-12-13 08:49] VITALS: BP 131/81
--- NOTE | 2024-12-13 09:31 | W.PN.CARDCBS ---
Addendum entered and electronically signed by Romario Vora MD 12/13/24 15:34:
I saw and examined the patient.
The Screener And Blender's note was reviewed and I agree with the note.
Comment: Briefly, 74-year-old woman past medical history of heart failure with reduced ejection fraction who presents in acute decompensated heart failure
With IV diuresis she developed acute kidney injury and diuretics as well as GDMT was held
Her creatinine is returning to baseline
Would add back p.o. Bumex 1 mg once daily
Hold spironolactone and Entresto�these can be resumed in the outpatient setting by her primary chopper operator
Continue Coreg at home dose 6.25 twice daily
Stable cardiac status, we will sign off, please recall as needed
Original Note:
Today's Communication / Plan
-
Restart PO bumex 1mg daily
Follow up w/ BMP in 1 week as OP
Follow up to be arranged w/ primary chopper operator.
Impression / Plan
-
Primary Herbarium Worker: Dr. Thorpe of [facility]
Impression:
Presented with weight gain, orthopnea, LE edema
Acute on chronic HFrEF
Elevated troponin
Aspiration pneumonitis
Recent fall with facial ecchymoses
CKD stage IIIB
High-grade AV block s/p PPM
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
Hypertension
Hyperlipidemia
Rcp-ezssshc-vazdhtcnh diabetes type 2
Neuropathy
GERD
Depression
ECHO 02/02/2024: EF 20 to 25%, grade 2 diastolic dysfunction, basal miller move best with moderate hypokinesis, rest of wall severely hypokinetic, mild concentric LVH, moderate MR, moderate TR, PAP 55 to 60 mmHg, mild AR, mildly dilated ascending aorta
ECHO 12/05/2024: EF 25 to 30%, mild concentric LVH, global hypokinesis, MAC, mitral sclerosis with peak/mean gradient 7/4 mmHg, moderate MR, mild , moderate AR with peak/mean gradients 23/13 mmHg, moderate to severe TR, PAP 65 to 70 mmHg, aortic
root and ascending aorta dilation
Lexiscan nuclear stress test 06/07/2022: Small size defect in anterior apical wall that is fixed, resting EF 27%
Plan:
-Presented with weight gain, orthopnea, and LE edema. Admitted with acute heart failure.
-Diuresed over 20 lbs, but then developed EZEKIEL w/ creat up to 2.0 on 12/10.
-Lasix, Entresto, and spironolactone on hold.
-Creat down to 1.6 12/13. Will resume PO bumex 1mg daily for now. Check BMP in 1 week. As OP, may be able to increase to 1mg BID.
-Consider resuming Entresto and spironolactone as OP as renal function permits.
-Weight remains improved, at 129 lbs on 12/13.
-Echo 12/10 with EF 25-30% with moderate MR, moderate AR, and moderate to severe TR as noted above.
-Continues on coreg alone for medical therapy as Entresto and spironolactone on hold. Ideally would resume as OP as renal function improves.
-Remains on supplemental O2, but down to 2L. No SOB.
-ICD interrogation 12/05 without arrhythmia
-Continue management of abdominal pain per primary service.
-Will arrange follow up with primary chopper operator.
HPI: Patient is a 74 yo F with PMH of chronic kidney disease, hypertension, dyslipidemia, high-grade AV block with pacemaker mediated cardiomyopathy status post Medtronic BiV ICD who has been struggling within the last several months with volume
overload. By review of outpatient notes, her primary chopper operator had started her on bumetanide, Jardiance, and was transition from losartan to Entresto. She stopped taking Jardiance due to eye dryness. The beginning of November she had an
episode where she fell after coming up the stairs into the kitchen and bruised her face. She denies loss of consciousness with the event. She reports weight gain of 25 pounds with significant bilateral lower extremity edema with weeping,
orthopnea. At office visit 11/20 her Bumex dose was increased to 1 mg twice daily, however patient tells me she has only been taking 1 mg daily. In office visit 2 she was recommended going to the emergency room but she refused. By last
echocardiogram 02/02/2024, EF 20 to 25% with moderate MR, moderate TR, PAP 55 to 60 mmHg. proBNP on arrival greater than 27,000. Cardiology consulted for assistance with CHF management.
Progress Note - Herbarium Worker
Subjective
Date of Service: December 13, 2024
No complaints, feeling well.
Objective
Labs:
12/13/24 05:49
12/13/24 05:49
Labs
Hgb 10.7 g/dL (12.0-16.0) L 12/13/24 05:49
Hct 34.9 % (37.0-47.0) L 12/13/24 05:49
Plt Count 165 10^3/uL (130-400) 12/13/24 05:49
Sodium 136 mmol/L (135-145) 12/13/24 05:49
Potassium 4.2 mmol/L (3.5-5.1) 12/13/24 05:49
BUN 40 mg/dl (7-17) H 12/13/24 05:49
Creatinine 1.6 mg/dL (0.6-1.0) H 12/13/24 05:49
Glucose 93 mg/dl (70-99) 12/13/24 05:49
Vital Signs and I&O:
Vital Signs
Temp Pulse Resp BP Pulse Ox
97.8 F 72 24 131/81 99
12/13/24 08:49 12/13/24 08:49 12/13/24 08:49 12/13/24 08:49 12/13/24 08:49
Vital Signs
Temp Pulse Resp BP Pulse Ox
97.8 F 72 24 131/81 99
12/13/24 08:49 12/13/24 08:49 12/13/24 08:49 12/13/24 08:49 12/13/24 08:49
Intake & Output
12/11/24 12/12/24 12/13/24 12/14/24
06:59 06:59 06:59 06:59
Intake Total 480 / 480 960 / 960 820 / 820
Balance 480 / 480 960 / 960 820 / 820
Physical Exam
Physical Exam
GEN: No distress, awake, alert, oriented x3
HEENT: supple, anicteric, mmm
LUNGS: CTA b/l, no wheezes/rales
CV: Reg, S1/S2, 1/6 syst murmur
EXT: No clubbing, cyanosis, or edema
NEURO: Gross non-focal
SKIN: Warm, dry, no rash
[2024-12-13 10:50] LABS: Absolute Neutrophils -Man Diff 2.7 10^3/uL (1.4-6.5); Atypical Lymphocytes 2 %; Band Neutrophils 12 % (0-3); Lymphocytes 17 % (20-51); Monocytes 13 % (2-9); Segmented Neutrophils 53 % (42-75)
[2024-12-13 10:51] LABS: Anisocytosis 1+; Hypochromasia 1+; Normal RBC Morphology No; Platelets Checked Yes; Total Cells Counted 100
[2024-12-13 11:00] VITALS: BP 135/74
--- NOTE | 2024-12-13 11:15 | CM ---
CM reviewed chart, patient seen bedside with daughter, Linh. Linh requesting SNF referrals to [facility], [facility], placed in [facility]. CM will continue to follow for all discharge planning needs.
Plan; SNF pending accepting facility
[2024-12-13 12:12] LABS: Glucose - Point of Care 105 mg/dl (70-99)
--- NOTE | 2024-12-13 13:10 | W.PN.HOSP.TC ---
Today's Communication/Plan
-
Monitor vital signs
see plan
Continue to monitor creatinine, slowly improving
Hold cardiac meds at this time and monitor closely
PT/OT
Discussed with daughter at bedside, she wants patient to be discharged to SNF near her. advertising operations manager notified
Discharge planning
Assessment / Plan
Assessment / Plan
Physical exam:
General: chronically ill looking
HEENT: Normocephalic, Moist mucous membranes and Atraumatic
Respiratory: Basal crackles.
Cardiac: S1/S2 , + diastolic murmur
GI: Soft, nontender
Musculoskeletal: Edema, Right Upper Extremity and Edema, Left Lower Extremity
Neuro: Nonfocal/grossly intact
Abdominal pain with distention likely secondary to enteritis/ileus and constipation
Now improving
Continue with laxatives, now had bowel movement
CT abdomen/pelvis without any obstruction, consistent with possible enteritis/ileus and constipation
lactate 2
Acute hypoxic respiratory failure likely secondary to possible aspiration pneumonitis given recent vomiting 12/09
Sepsis (fever,tachypnea) likely secondary to aspiration pneumonitis
UA normal, chest x-ray without pneumonia,BCX NGTD
Discontinue further vancomycin, continue Zosyn for now
now on 3 L nasal cannula, wean oxygen as tolerated
Follow fever curve, COVID, flu negative
EZEKIEL on CKD3b
Creatinine slowly improving, 1.6 today
Suspect likely secondary to hypotension 12/09
Continue to monitor, if creatinine does not improve then will need nephrology evaluation
Bladder scan
Hold nephrotoxic agents
Acute on chronic congestive heart failure with reduced ejection fraction
Echocardiogram with EF 25%, moderate mitral regurgitation/moderate aortic regurgitation/moderate to severe tricuspid regurgitation.
Hold IV diuresis given EZEKIEL, monitor
Holding Entresto given hypotension. Apparently patient developed itching when she was on bilateral dose of Entresto
Coreg to 6.25 mg BID. holding parameters
Does not appear to be compliant with Bumex at home
ICD interrogated by cardiology 12/05, No arrhythmia
she follows with Dr Willis from [facility] cardiology. She might change to cardiology service at [facility].
Lexiscan nuclear stress test 06/07/2022: Small size defect in anterior apical wall that is fixed, resting EF 27%
Hyponatremia
Monitor
Elevated troponin, likely secondary to nonischemic myocardial injury
No chest pain
Monitor
# S/P ICD in 2022 at [place]
# Bilateral multiple lower extremity venous wounds.
Seems consistent with dermatitis/venous- possible exfoliative type especially with chronicity( years) and on/ off pattern of flare-up
Appearance of open venous appearing wounds/macerated edges/excoriated skin with erythema and tenderness. No swelling.
Continue with wound care
She was recently started on double antibiotics course for presumed cellulitis. open wounds can have superimposed secondary/bacterial infection at times. No fever, no leukocytosis. Was on Keflex and doxy; last day 12/07
Continue with pain control, prefer Dilaudid or oxycodone due to chronic kidney disease. Tylenol TID.
# Sacrum with stage 1 PI, non-blanchable red skin
Follow-up with wound care
# Hyponatremia
#GERD
Protonix
Diabetes mellitus
Patient is on Januvia. Not preferred medicine in heart failure patients..
Insulin sliding scale, Accu-Cheks
a1C 7.1
History of colon cancer status post resection
History of ostomy with reversal
History of SBO
Depression
Per caseworker protective services, outpatient VN called mobile crisis since patient had suicidal ideation. Currently she denies suicidal ideation. Evaluated by psychiatry and has been cleared.
Continue Celexa
# Diabetic neuropathy, continue with gabapentin
DVT prophylaxis
Lovenox
Full code
PT/OT
Total time spent to see the patient on the floor, examine the patient, review data and lab results, discuss treatment plan with patient, nursing staff around 51 minutes
Anticipated Discharge: 24 - 48 hours
Subjective/Interval History
-
Date of Service: December 13, 2024
Denies pain
Objective Data
-
Labs:
Laboratory Results
12/13/24
05:49
WBC 4.2 L
Hgb 10.7 L
Hct 34.9 L
Plt Count 165
Sodium 136
Potassium 4.2
Chloride 98
Carbon Dioxide 33 H
BUN 40 H
Creatinine 1.6 H
Glucose 93
Calcium 8.0 L
Vital Signs:
Vital Signs
Temp Pulse Resp BP Pulse Ox
97.6 F 72 22 135/74 96
12/13/24 11:00 12/13/24 11:00 12/13/24 11:00 12/13/24 11:00 12/13/24 11:00
I&O
12/12/24 12/13/24 12/14/24
06:59 06:59 06:59
Intake Total 960 / 960 820 / 820
Balance 960 / 960 820 / 820
[2024-12-13 15:00] VITALS: BP 147/84
[2024-12-13 17:34] LABS: Glucose - Point of Care 96 mg/dl (70-99)
[2024-12-13 19:40] VITALS: BP 155/94
[2024-12-13] MEDS: ZYRTEC 5 MG PO (21:29)
[2024-12-13 21:34] LABS: Glucose - Point of Care 157 mg/dl (70-99)
[2024-12-13 23:40] VITALS: BP 128/69
[2024-12-14] MEDS: ZOSYN 50 IV ×4 (01:24→20:13)
[2024-12-14 03:53] VITALS: BP 145/85
[2024-12-14 06:00] VITALS: BMI 22.9
[2024-12-14 07:00] VITALS: BP 137/77
[2024-12-14] MEDS: NSS (PRESERVATIVE FREE) 10 ML IV (07:51)
[2024-12-14] MEDS: HEPARIN 5000 UNITS SC ×2 (07:51→20:11)
[2024-12-14] MEDS: PROTONIX IV 40 MG IV (07:51)
[2024-12-14] MEDS: DETROL LA 2 MG PO ×2 (07:52→20:11)
[2024-12-14] MEDS: VISBIOME 1 CAP PO (07:52)
[2024-12-14] MEDS: TYLENOL 1000 MG PO ×3 (07:52→21:05)
[2024-12-14] MEDS: NEURONTIN 300 MG PO ×2 (07:52→20:12)
[2024-12-14] MEDS: MAGNESIUM OXIDE PO ×2 (07:52→08:49)
[2024-12-14] MEDS: CELEXA 20 MG PO (07:54)
[2024-12-14] MEDS: COLACE 100 MG PO (07:54)
[2024-12-14] MEDS: HYDROPHOR TOPICAL (07:54)
[2024-12-14] MEDS: BUMEX 1 MG PO (07:54)
[2024-12-14 07:57] LABS: % Eosinophils 4.1 % (0-6); % Immature Granulocytes 0.2 % (0-0.5); % Lymphocytes 24.3 % (20.5-51.1); % Monocytes 10.6 % (1.7-9.3); % Neutrophils 59.8 % (42.2-75.2); Absolute Eosinophils 0.2 10^3/uL (0-0.7); Absolute Monocytes 0.4 10^3/uL (0.1-0.6); Absolute Neutrophils 2.5 10^3/uL (1.4-6.5); Hematocrit 36.6 % (37.0-47.0); Mean Corp Hgb Conc. 30.1 g/dL (33.0-37.0); Mean Corpuscular Hgb 26.7 pg (27.0-31.0); Mean Corpuscular Volume 88.8 fL (81.0-99.0); Mean Platelet Volume 10.3 fL (7.4-10.4); Nucleated Red Blood Cells % 0 %; Platelet Count 183 10^3/uL (130-400); Red Blood Cell Count 4.12 10^6/uL (4.20-5.40); White Blood Cell Count 4.2 10^3/uL (4.8-10.8)
[2024-12-14] MEDS: COREG 6.25 MG PO ×2 (07:59→20:11)
[2024-12-14] MEDS: NOVOLOG FLEXPEN-LOW RESISTANCE SC ×3 (08:04→17:48)
[2024-12-14 08:08] LABS: Glucose - Point of Care 83 mg/dl (70-99)
[2024-12-14] MEDS: RESTASIS 0.05% OPHTHALMIC EMULSION 1 DROPS BOTH EYES ×2 (08:08→21:04)
[2024-12-14] MEDS: BENTYL 10 MG PO ×4 (08:08→21:04)
[2024-12-14 08:29] LABS: Blood Urea Nitrogen 32 mg/dl (7-17); Calcium 7.7 mg/dl (8.4-10.2); Carbon Dioxide 32 mmol/L (22-30); Chloride 99 mmol/L (98-107); Estimated Creatinine Clearance 28 ml/min; Glucose 84 mg/dl (70-99); Sodium 138 mmol/L (135-145)
[2024-12-14 11:00] VITALS: BP 134/68
[2024-12-14 11:40] LABS: Glucose - Point of Care 124 mg/dl (70-99)
--- NOTE | 2024-12-14 12:18 | W.PN.HOSP.TC ---
Today's Communication/Plan
-
Monitor vital signs see plan
P.o. Bumex
Antibiotics
PT/OT
Discharge planning
Monitor renal function
Assessment / Plan
Assessment / Plan
Physical exam:
General: chronically ill looking
HEENT: Normocephalic, Moist mucous membranes and Atraumatic
Respiratory: Basal crackles.
Cardiac: S1/S2 , + diastolic murmur
GI: Soft, nontender
Musculoskeletal: Edema, Right Upper Extremity and Edema, Left Lower Extremity
Neuro: Nonfocal/grossly intact
Abdominal pain with distention likely secondary to enteritis/ileus and constipation
Now improving
Continue with laxatives, now had bowel movement
CT abdomen/pelvis without any obstruction, consistent with possible enteritis/ileus and constipation
lactate 2
Acute hypoxic respiratory failure likely secondary to possible aspiration pneumonitis given recent vomiting 12/09
Sepsis (fever,tachypnea) likely secondary to aspiration pneumonitis
UA normal, chest x-ray without pneumonia,BCX NGTD
Discontinue further vancomycin, continue Zosyn for now
now on 2 L nasal cannula, wean oxygen as tolerated
Follow fever curve, COVID, flu negative
EZEKIEL on CKD3b
Creatinine slowly improving, 1.5 today
Discussed with cardiology, will hold Aldactone and Entresto at this time. Patient will follow-up outpatient
Suspect likely secondary to hypotension 12/09
Continue to monitor, if creatinine does not improve then will need nephrology evaluation
Bladder scan
Hold nephrotoxic agents
Acute on chronic congestive heart failure with reduced ejection fraction
Echocardiogram with EF 25%, moderate mitral regurgitation/moderate aortic regurgitation/moderate to severe tricuspid regurgitation.
Hold IV diuresis given EZEKIEL, monitor. Now on p.o. Bumex
Holding Entresto given hypotension. Apparently patient developed itching when she was on bilateral dose of Entresto
Coreg to 6.25 mg BID. holding parameters
Does not appear to be compliant with Bumex at home
ICD interrogated by cardiology 12/05, No arrhythmia
she follows with Dr Willis from [facility] cardiology. She might change to cardiology service at dose.
Lexiscan nuclear stress test 06/07/2022: Small size defect in anterior apical wall that is fixed, resting EF 27%
Hyponatremia
Monitor
Elevated troponin, likely secondary to nonischemic myocardial injury
No chest pain
Monitor
# S/P ICD in 2022 at [place]
# Bilateral multiple lower extremity venous wounds.
Seems consistent with dermatitis/venous- possible exfoliative type especially with chronicity( years) and on/ off pattern of flare-up
Appearance of open venous appearing wounds/macerated edges/excoriated skin with erythema and tenderness. No swelling.
Continue with wound care
She was recently started on double antibiotics course for presumed cellulitis. open wounds can have superimposed secondary/bacterial infection at times. No fever, no leukocytosis. Finished antibiotics; last day 12/07
Continue with pain control, prefer Dilaudid or oxycodone due to chronic kidney disease. Tylenol TID.
# Sacrum with stage 1 PI, non-blanchable red skin
Follow-up with wound care
# Hyponatremia
#GERD
Protonix
Diabetes mellitus
Patient is on Januvia. Not preferred medicine in heart failure patients..
Insulin sliding scale, Accu-Cheks
a1C 7.1
History of colon cancer status post resection
History of ostomy with reversal
History of SBO
Depression
Per case finisher, outpatient VN called mobile crisis since patient had suicidal ideation. Currently she denies suicidal ideation. Evaluated by psychiatry and has been cleared.
Continue Celexa
# Diabetic neuropathy, continue with gabapentin
DVT prophylaxis
Lovenox
Full code
PT/OT rec SNF; discussed with daughter and she wants patient to be near her. enrollment manager sent referrals
Total time spent to see the patient on the floor, examine the patient, review data and lab results, discuss treatment plan with patient, nursing staff around 52 minutes
Anticipated Discharge: Within 24 hours
Subjective/Interval History
-
Date of Service: December 14, 2024
Denies pain
Objective Data
-
Labs:
Laboratory Results
12/14/24
06:02
WBC 4.2 L
Hgb 11.0 L
Hct 36.6 L
Plt Count 183
Sodium 138
Potassium 4.0
Chloride 99
Carbon Dioxide 32 H
BUN 32 H
Creatinine 1.5 H
Glucose 84
Calcium 7.7 L
Vital Signs:
Vital Signs
Temp Pulse Resp BP Pulse Ox
98.3 F 70 19 134/68 95
12/14/24 11:00 12/14/24 11:00 12/14/24 11:00 12/14/24 11:00 12/14/24 11:00
I&O
12/13/24 12/14/24 12/15/24
06:59 06:59 06:59
Intake Total 820 / 820 900 / 900
Balance 820 / 820 900 / 900
--- NOTE | 2024-12-14 14:58 | CM ---
marketing assistant manager reviewed patient's chart and reached out to [facility], [facility]. They have no beds available for patient. updated therapy notes sent to [facility].
Plan; Skilled placement.
[2024-12-14 15:27] VITALS: BP 122/73
--- NOTE | 2024-12-14 15:48 | CHAP ---
Lydia was welcoming - greeted me with a nice smile. She has good support from her daughters and grandson. Emotional and spiritual support provided.
[2024-12-14 17:48] LABS: Glucose - Point of Care 81 mg/dl (70-99)
[2024-12-14 19:20] VITALS: BP 147/81
[2024-12-14] MEDS: COLACE PO (20:16)
[2024-12-14] MEDS: ZYRTEC 5 MG PO (21:05)
[2024-12-14 23:44] LABS: Glucose - Point of Care 103 mg/dl (70-99)
[2024-12-14 23:49] VITALS: BP 147/88
[2024-12-15] MEDS: ZOSYN 50 IV ×2 (01:31→07:48)
[2024-12-15 03:06] VITALS: BP 153/93
[2024-12-15 05:59] VITALS: BMI 21.8
[2024-12-15 07:39] LABS: Glucose - Point of Care 81 mg/dl (70-99)
[2024-12-15 07:45] VITALS: BP 153/86
[2024-12-15] MEDS: NSS (PRESERVATIVE FREE) 10 ML IV (07:48)
[2024-12-15] MEDS: RESTASIS 0.05% OPHTHALMIC EMULSION 1 DROPS BOTH EYES ×2 (07:48→21:16)
[2024-12-15] MEDS: VISBIOME 1 CAP PO (07:48)
[2024-12-15] MEDS: NEURONTIN 300 MG PO ×2 (07:48→19:59)
[2024-12-15] MEDS: DETROL LA 2 MG PO ×2 (07:48→19:59)
[2024-12-15] MEDS: TYLENOL 1000 MG PO ×3 (07:48→21:16)
[2024-12-15] MEDS: PROTONIX IV 40 MG IV (07:49)
[2024-12-15] MEDS: HEPARIN 5000 UNITS SC ×2 (07:50→19:59)
[2024-12-15] MEDS: COREG 6.25 MG PO ×2 (07:50→19:59)
[2024-12-15] MEDS: BUMEX 1 MG PO (07:50)
[2024-12-15] MEDS: BENTYL 10 MG PO ×4 (07:51→21:16)
[2024-12-15] MEDS: NOVOLOG FLEXPEN-LOW RESISTANCE SC ×2 (07:51→15:17)
[2024-12-15] MEDS: COLACE PO ×2 (07:51→20:05)
[2024-12-15] MEDS: HYDROPHOR 1 APPLIC TOPICAL (07:52)
[2024-12-15] MEDS: MAGNESIUM OXIDE PO (07:52)
[2024-12-15 07:55] LABS: Blood Urea Nitrogen 30 mg/dl (7-17); Calcium 7.9 mg/dl (8.4-10.2); Carbon Dioxide 33 mmol/L (22-30); Chloride 101 mmol/L (98-107); Estimated Creatinine Clearance 28 ml/min; Glucose 76 mg/dl (70-99); Sodium 137 mmol/L (135-145)
[2024-12-15] MEDS: CELEXA 20 MG PO (08:05)
[2024-12-15 08:19] LABS: Hematocrit 37.5 % (37.0-47.0); Hemoglobin 11.2 g/dL (12.0-16.0); Mean Corp Hgb Conc. 29.9 g/dL (33.0-37.0); Mean Corpuscular Hgb 26.9 pg (27.0-31.0); Mean Corpuscular Volume 89.9 fL (81.0-99.0); Mean Platelet Volume 10.5 fL (7.4-10.4); Platelet Count 202 10^3/uL (130-400); Red Blood Cell Count 4.17 10^6/uL (4.20-5.40); Red Cell Dist. Width 16.2 % (11.5-14.5); White Blood Cell Count 4.4 10^3/uL (4.8-10.8)
[2024-12-15 09:36] LABS: % Basophils 0.9 % (0-2); % Eosinophils 3.7 % (0-6); % Immature Granulocytes 0.5 % (0-0.5); % Lymphocytes 30.8 % (20.5-51.1); % Monocytes 9.7 % (1.7-9.3); % Neutrophils 54.4 % (42.2-75.2); Absolute Eosinophils 0.2 10^3/uL (0-0.7); Absolute Lymphocytes 1.3 10^3/uL (1.2-3.4); Absolute Monocytes 0.4 10^3/uL (0.1-0.6); Absolute Neutrophils 2.4 10^3/uL (1.4-6.5); Nucleated Red Blood Cells % 0 %
--- NOTE | 2024-12-15 09:38 | PTCARENOTE ---
Dietary department was called and made aware that pt is allergic to melon and was asked if they could make a note stating that. Pt was sent up melon on her breakfast tray
[2024-12-15 10:47] VITALS: BP 139/74
[2024-12-15 10:58] LABS: Glucose - Point of Care 157 mg/dl (70-99)
[2024-12-15] MEDS: NOVOLOG FLEXPEN-LOW RESISTANCE 1 UNITS SC (11:38)
--- NOTE | 2024-12-15 11:43 | W.PN.HOSP.TC ---
Today's Communication/Plan
-
Monitor vital signs see plan
Discharge planning
Continue monitor renal function, once continue to improve and blood pressure stable then will restart Entresto
Finished antibiotics
pt/ot
Assessment / Plan
Assessment / Plan
Physical exam:
General: chronically ill looking
HEENT: Normocephalic, Moist mucous membranes and Atraumatic
Respiratory: Basal crackles.
Cardiac: S1/S2 , + diastolic murmur
GI: Soft, nontender
Musculoskeletal: Edema, Right Upper Extremity and Edema, Left Lower Extremity
Neuro: Nonfocal/grossly intact
Abdominal pain with distention likely secondary to enteritis/ileus and constipation
Now improving
Continue with laxatives, now had bowel movement
CT abdomen/pelvis without any obstruction, consistent with possible enteritis/ileus and constipation
lactate 2
Acute hypoxic respiratory failure likely secondary to possible aspiration pneumonitis given recent vomiting 12/09
Sepsis (fever,tachypnea) likely secondary to aspiration pneumonitis
UA normal, chest x-ray without pneumonia,BCX NGTD
Finished antibiotics
Now weaned off oxygen
Follow fever curve, COVID, flu negative
EZEKIEL on CKD3b
Creatinine slowly improving, 1.5 today
Discussed with cardiology, will hold Aldactone and Entresto at this time. Patient will follow-up outpatient
Suspect likely secondary to hypotension 12/09
Continue to monitor, if creatinine does not improve then will need nephrology evaluation
Bladder scan
Hold nephrotoxic agents
Acute on chronic congestive heart failure with reduced ejection fraction
Echocardiogram with EF 25%, moderate mitral regurgitation/moderate aortic regurgitation/moderate to severe tricuspid regurgitation.
Hold IV diuresis given EZEKIEL, monitor. Now on p.o. Bumex
Holding Entresto given hypotension. Apparently patient developed itching when she was on bilateral dose of Entresto
Coreg to 6.25 mg BID. holding parameters
Does not appear to be compliant with Bumex at home
ICD interrogated by cardiology 12/05, No arrhythmia
she follows with Dr Willis from [facility] cardiology. She might change to cardiology service at [facility].
Lexiscan nuclear stress test 06/07/2022: Small size defect in anterior apical wall that is fixed, resting EF 27%
Hyponatremia
Monitor
Elevated troponin, likely secondary to nonischemic myocardial injury
No chest pain
Monitor
# S/P ICD in 2022 at [place]
# Bilateral multiple lower extremity venous wounds.
Seems consistent with dermatitis/venous- possible exfoliative type especially with chronicity( years) and on/ off pattern of flare-up
Appearance of open venous appearing wounds/macerated edges/excoriated skin with erythema and tenderness. No swelling.
Continue with wound care
She was recently started on double antibiotics course for presumed cellulitis. open wounds can have superimposed secondary/bacterial infection at times. No fever, no leukocytosis. Finished antibiotics; last day 12/07
Continue with pain control, prefer Dilaudid or oxycodone due to chronic kidney disease. Tylenol TID.
# Sacrum with stage 1 PI, non-blanchable red skin
Follow-up with wound care
# Hyponatremia
#GERD
Protonix
Diabetes mellitus
Patient is on Januvia. Not preferred medicine in heart failure patients..
Insulin sliding scale, Accu-Cheks
a1C 7.1
History of colon cancer status post resection
History of ostomy with reversal
History of SBO
Depression
Per classification case manager, outpatient VN called mobile crisis since patient had suicidal ideation. Currently she denies suicidal ideation. Evaluated by psychiatry and has been cleared.
Continue Celexa
# Diabetic neuropathy, continue with gabapentin
DVT prophylaxis
Lovenox
Full code
PT/OT rec SNF; discussed with daughter and she wants patient to be near her. copy manager sent referrals
Anticipated Discharge: Within 24 hours
Subjective/Interval History
-
Date of Service: December 15, 2024
Denies pain
Objective Data
-
Labs:
Laboratory Results
12/15/24
05:59
WBC 4.4 L
Hgb 11.2 L
Hct 37.5
Plt Count 202
Sodium 137
Potassium 4.0
Chloride 101
Carbon Dioxide 33 H
BUN 30 H
Creatinine 1.5 H
Glucose 76
Calcium 7.9 L
Vital Signs:
Vital Signs
Temp Pulse Resp BP Pulse Ox
97.8 F 71 20 139/74 94
12/15/24 10:47 12/15/24 10:47 12/15/24 10:47 12/15/24 10:47 12/15/24 10:47
I&O
12/14/24 12/15/24 12/16/24
06:59 06:59 06:59
Intake Total 900 / 900 580 / 580
Balance 900 / 900 580 / 580
[2024-12-15 14:53] VITALS: BP 133/86
[2024-12-15 15:16] LABS: Glucose - Point of Care 119 mg/dl (70-99)
[2024-12-15 19:44] VITALS: BP 156/80
[2024-12-15] MEDS: ZYRTEC 5 MG PO (21:19)
[2024-12-15 21:25] LABS: Glucose - Point of Care 97 mg/dl (70-99)
[2024-12-16] VITALS (7 sets, daily range): BP systolic 146–168; BP diastolic 61–93; PULSE 71; O2SAT 95; BMI 22.2
[2024-12-16 07:30] LABS: Glucose - Point of Care 80 mg/dl (70-99)
[2024-12-16] MEDS: NOVOLOG FLEXPEN-LOW RESISTANCE SC (07:31)
[2024-12-16 07:49] LABS: Hematocrit 38.3 % (37.0-47.0); Hemoglobin 11.8 g/dL (12.0-16.0); Mean Corp Hgb Conc. 30.8 g/dL (33.0-37.0); Mean Corpuscular Hgb 26.8 pg (27.0-31.0); Mean Platelet Volume 9.9 fL (7.4-10.4); Platelet Count 220 10^3/uL (130-400); White Blood Cell Count 4.3 10^3/uL (4.8-10.8)
[2024-12-16 08:07] LABS: Blood Urea Nitrogen 27 mg/dl (7-17); Calcium 8.4 mg/dl (8.4-10.2); Carbon Dioxide 31 mmol/L (22-30); Chloride 102 mmol/L (98-107); Estimated Creatinine Clearance 35 ml/min; Glucose 79 mg/dl (70-99); Potassium 4.2 mmol/L (3.5-5.1); Sodium 138 mmol/L (135-145); eGFR 48.09
[2024-12-16 08:47] LABS: % Basophils 0.7 % (0-2); % Eosinophils 3.7 % (0-6); % Immature Granulocytes 0.2 % (0-0.5); % Lymphocytes 33.3 % (20.5-51.1); % Monocytes 7.2 % (1.7-9.3); % Neutrophils 54.9 % (42.2-75.2); Absolute Eosinophils 0.2 10^3/uL (0-0.7); Absolute Lymphocytes 1.4 10^3/uL (1.2-3.4); Absolute Monocytes 0.3 10^3/uL (0.1-0.6); Absolute Neutrophils 2.4 10^3/uL (1.4-6.5); Nucleated Red Blood Cells % 0 %
[2024-12-16] MEDS: BENTYL 10 MG PO ×4 (08:47→21:15)
[2024-12-16] MEDS: RESTASIS 0.05% OPHTHALMIC EMULSION 1 DROPS BOTH EYES ×2 (08:47→21:15)
[2024-12-16] MEDS: MAGNESIUM OXIDE 250 MG PO (08:47)
[2024-12-16] MEDS: DETROL LA 2 MG PO ×2 (08:49→21:15)
[2024-12-16] MEDS: HEPARIN 5000 UNITS SC ×2 (08:49→20:49)
[2024-12-16] MEDS: NEURONTIN 300 MG PO ×2 (08:49→21:14)
[2024-12-16] MEDS: TYLENOL 1000 MG PO ×3 (08:49→21:14)
[2024-12-16] MEDS: VISBIOME 1 CAP PO (08:50)
[2024-12-16] MEDS: PROTONIX IV 40 MG IV (08:50)
[2024-12-16] MEDS: CELEXA 20 MG PO (08:50)
[2024-12-16] MEDS: COREG 6.25 MG PO ×2 (08:50→21:15)
[2024-12-16] MEDS: BUMEX 1 MG PO (08:50)
[2024-12-16] MEDS: COLACE PO ×2 (08:50→21:16)
[2024-12-16] MEDS: NSS (PRESERVATIVE FREE) 10 ML IV (08:50)
[2024-12-16] MEDS: HYDROPHOR 1 APPLIC TOPICAL (08:51)
--- NOTE | 2024-12-16 10:53 | CM ---
Chart reviewed for d/c planning and hospital course updates. Patient agreeable to skilled rehab, [place] [facility] location does not have any bed availability, [facility] currently reviewing for acceptance.
CM spoke w/ [facility] admissions, requested therapy and wound care note. CM faxed notes to [phone]
Spoke w/ therapy, will see today for updated eval and note.
Plan: SNF; pending accepting facility
[2024-12-16 11:08] LABS: Glucose - Point of Care 339 mg/dl (70-99)
[2024-12-16 11:10] LABS: Glucose - Point of Care 130 mg/dl (70-99)
[2024-12-16 11:13] LABS: Glucose - Point of Care 160 mg/dl (70-99)
--- NOTE | 2024-12-16 11:45 | W.PN.HOSP.TC ---
Today's Communication/Plan
-
dc
Assessment / Plan
Assessment / Plan
Physical exam:
General: chronically ill looking
HEENT: Normocephalic, Moist mucous membranes and Atraumatic
Respiratory: Basal crackles.
Cardiac: S1/S2 , + diastolic murmur
GI: Soft, nontender
Musculoskeletal: Edema, Right Upper Extremity and Edema, Left Lower Extremity
Neuro: Nonfocal/grossly intact
Psych: calm
Abdominal pain with distention likely secondary to enteritis/ileus and constipation
Now improving
Continue with laxatives, now had bowel movement
CT abdomen/pelvis without any obstruction, consistent with possible enteritis/ileus and constipation
lactate 2
Acute hypoxic respiratory failure likely secondary to possible aspiration pneumonitis given recent vomiting 12/09
Sepsis (fever,tachypnea) likely secondary to aspiration pneumonitis
UA normal, chest x-ray without pneumonia,BCX NGTD
Finished antibiotics
Now weaned off oxygen
Follow fever curve, COVID, flu negative
EZEKIEL on CKD3b
Creatinine slowly improving,
Discussed with cardiology, will hold Aldactone and Entresto at this time. Patient will follow-up outpatient
Suspect likely secondary to hypotension 12/09
Continue to monitor, if creatinine does not improve then will need nephrology evaluation
Bladder scan
Hold nephrotoxic agents
Acute on chronic congestive heart failure with reduced ejection fraction
Echocardiogram with EF 25%, moderate mitral regurgitation/moderate aortic regurgitation/moderate to severe tricuspid regurgitation.
Hold IV diuresis given EZEKIEL, monitor. Now on p.o. Bumex
Holding Entresto given hypotension. Apparently patient developed itching when she was on bilateral dose of Entresto
Coreg to 6.25 mg BID. holding parameters
Does not appear to be compliant with Bumex at home
ICD interrogated by cardiology 12/05, No arrhythmia
she follows with Dr Willis from [facility] cardiology. She might change to cardiology service at dose.
[employer] stress test 06/07/2022: Small size defect in anterior apical wall that is fixed, resting EF 27%
Hyponatremia
Monitor
Elevated troponin, likely secondary to nonischemic myocardial injury
No chest pain
Monitor
# S/P ICD in 2022 at [place]
# Bilateral multiple lower extremity venous wounds.
Seems consistent with dermatitis/venous- possible exfoliative type especially with chronicity( years) and on/ off pattern of flare-up
Appearance of open venous appearing wounds/macerated edges/excoriated skin with erythema and tenderness. No swelling.
Continue with wound care
She was recently started on double antibiotics course for presumed cellulitis. open wounds can have superimposed secondary/bacterial infection at times. No fever, no leukocytosis. Finished antibiotics; last day 12/07
Continue with pain control, prefer Dilaudid or oxycodone due to chronic kidney disease. Tylenol TID.
# Sacrum with stage 1 PI, non-blanchable red skin
Follow-up with wound care
# Hyponatremia
#GERD
Protonix
Diabetes mellitus
Patient is on Januvia. Not preferred medicine in heart failure patients..
Insulin sliding scale, Accu-Cheks
a1C 7.1
History of colon cancer status post resection
History of ostomy with reversal
History of SBO
Depression
Per manager of case management, outpatient VN called mobile crisis since patient had suicidal ideation. Currently she denies suicidal ideation. Evaluated by psychiatry and has been cleared.
Continue Celexa
# Diabetic neuropathy, continue with gabapentin
DVT prophylaxis
Lovenox
Full code
Total discharge time spent to see the patient, examine the patient, review data and lab results, discuss discharge plan with patient and nursing staff around 65 minutes
Anticipated Discharge: Today
Subjective/Interval History
-
Date of Service: December 16, 2024
She feels better
Objective Data
-
Labs:
Laboratory Results
12/16/24
07:17
WBC 4.3 L
Hgb 11.8 L
Hct 38.3
Plt Count 220
Sodium 138
Potassium 4.2
Chloride 102
Carbon Dioxide 31 H
BUN 27 H
Creatinine 1.2 H
Glucose 79
Calcium 8.4
Vital Signs:
Vital Signs
Temp Pulse Resp BP Pulse Ox
98.5 F 73 20 164/89 94
12/16/24 11:23 12/16/24 11:23 12/16/24 11:23 12/16/24 11:23 12/16/24 11:23
I&O
12/15/24 12/16/24 12/17/24
06:59 06:59 06:59
Intake Total 580 / 580 1080 / 1080
Balance 580 / 580 1080 / 1080
[2024-12-16] MEDS: NOVOLOG FLEXPEN-LOW RESISTANCE 1 UNITS SC ×2 (12:36→16:26)
[2024-12-16 15:44] LABS: Glucose - Point of Care 168 mg/dl (70-99)
[2024-12-16] MEDS: ZYRTEC 5 MG PO (21:15)
[2024-12-16 22:09] LABS: Glucose - Point of Care 128 mg/dl (70-99)
[2024-12-17 02:59] VITALS: BP 163/95
[2024-12-17 06:00] VITALS: BMI 22.0
[2024-12-17 07:47] LABS: Glucose - Point of Care 84 mg/dl (70-99)
[2024-12-17] MEDS: NOVOLOG FLEXPEN-LOW RESISTANCE SC ×3 (07:48→15:14)
[2024-12-17 07:53] VITALS: BP 155/93
[2024-12-17] MEDS: DETROL LA 2 MG PO ×2 (08:14→20:21)
[2024-12-17] MEDS: RESTASIS 0.05% OPHTHALMIC EMULSION 1 DROPS BOTH EYES ×2 (08:15→20:22)
[2024-12-17] MEDS: MAGNESIUM OXIDE 250 MG PO (08:15)
[2024-12-17] MEDS: PROTONIX 40 MG PO (08:15)
[2024-12-17] MEDS: NEURONTIN 300 MG PO ×2 (08:15→20:19)
[2024-12-17] MEDS: BUMEX 1 MG PO (08:16)
[2024-12-17] MEDS: TYLENOL 1000 MG PO ×3 (08:16→21:50)
[2024-12-17] MEDS: VISBIOME 1 CAP PO (08:16)
[2024-12-17] MEDS: COREG 6.25 MG PO ×2 (08:16→20:20)
[2024-12-17] MEDS: HEPARIN 5000 UNITS SC ×2 (08:16→20:22)
[2024-12-17] MEDS: CELEXA 20 MG PO (08:16)
[2024-12-17] MEDS: COLACE PO ×2 (08:16→20:21)
[2024-12-17] MEDS: BENTYL 10 MG PO ×4 (08:19→21:50)
[2024-12-17] MEDS: HYDROPHOR 1 APPLIC TOPICAL (08:58)
--- NOTE | 2024-12-17 09:28 | W.PN.HOSP.TC ---
Today's Communication/Plan
-
dc planning
Assessment / Plan
Assessment / Plan
Physical exam:
General: chronically ill looking
HEENT: Normocephalic, Moist mucous membranes and Atraumatic
Respiratory: Basal crackles.
Cardiac: S1/S2 , + diastolic murmur
GI: Soft, nontender
Musculoskeletal: Edema, Right Upper Extremity and Edema, Left Lower Extremity
Neuro: Nonfocal/grossly intact
Psych: calm
Abdominal pain with distention likely secondary to enteritis/ileus and constipation
Now improving
Continue with laxatives, now had bowel movement
CT abdomen/pelvis without any obstruction, consistent with possible enteritis/ileus and constipation
lactate 2
Acute hypoxic respiratory failure likely secondary to possible aspiration pneumonitis given recent vomiting 12/09
Sepsis (fever,tachypnea) likely secondary to aspiration pneumonitis
UA normal, chest x-ray without pneumonia,BCX NGTD
Finished antibiotics
Now weaned off oxygen
Follow fever curve, COVID, flu negative
EZEKIEL on CKD3b
Creatinine slowly improving,
Discussed with cardiology, will hold Aldactone and Entresto at this time. Patient will follow-up outpatient
Suspect likely secondary to hypotension 12/09
Continue to monitor, if creatinine does not improve then will need nephrology evaluation
Bladder scan
Hold nephrotoxic agents
Acute on chronic congestive heart failure with reduced ejection fraction
Echocardiogram with EF 25%, moderate mitral regurgitation/moderate aortic regurgitation/moderate to severe tricuspid regurgitation.
s/p IV diuresis. Now on p.o. Bumex
Off Entresto & Aldactone given hypotension and EZEKIEL to be resume in OP setting. Apparently patient developed itching when she was on bilateral dose of Entresto
Coreg to 6.25 mg BID.
Does not appear to be compliant with Bumex at home
ICD interrogated by cardiology 12/05, No arrhythmia
she follows with Dr Willis from [facility] cardiology. She might change to cardiology service at dose.
Lexiscan nuclear stress test 06/07/2022: Small size defect in anterior apical wall that is fixed, resting EF 27%
#Hyponatremia
#Elevated troponin, likely secondary to nonischemic myocardial injury
No chest pain
Monitor
# S/P ICD in 2022 at [place]
# Bilateral multiple lower extremity venous wounds.
Seems consistent with dermatitis/venous- possible exfoliative type especially with chronicity( years) and on/ off pattern of flare-up
Appearance of open venous appearing wounds/macerated edges/excoriated skin with erythema and tenderness. No swelling.
Continue with wound care
She was recently started on double antibiotics course for presumed cellulitis. open wounds can have superimposed secondary/bacterial infection at times. No fever, no leukocytosis. Finished antibiotics; last day 12/07
Continue with pain control, On Gabapentin & Tylenol TID.
# Sacrum with stage 1 PI, non-blanchable red skin
Follow-up with wound care upon DC
# Hyponatremia
#GERD
Protonix
Diabetes mellitus
remains diet controlled.
Patient was on Januvia. Not preferred in heart failure patients.
Insulin sliding scale, Accu-Cheks
a1C 7.1
History of colon cancer status post resection
History of ostomy with reversal
History of SBO
Depression
Per family service caseworker, outpatient VN called mobile crisis since patient had suicidal ideation. Currently she denies suicidal ideation. Evaluated by psychiatry and has been cleared.
Continue Celexa
# Diabetic neuropathy, continue with gabapentin
DVT prophylaxis
Lovenox
Full code
Total discharge time spent to see the patient, examine the patient, review data and lab results, discuss discharge plan with patient and nursing staff around 45 minutes
Anticipated Discharge: Today
Subjective/Interval History
-
Date of Service: December 17, 2024
No complaints
Objective Data
-
Vital Signs:
Vital Signs
Temp Pulse Resp BP Pulse Ox
98.2 F 71 18 155/93 98
12/17/24 07:53 12/17/24 07:53 12/17/24 07:53 12/17/24 07:53 12/17/24 08:00
I&O
12/16/24 12/17/24 12/18/24
06:59 06:59 06:59
Intake Total 1080 / 1080 720 / 720
Balance 1080 / 1080 720 / 720
[2024-12-17 11:20] LABS: Glucose - Point of Care 124 mg/dl (70-99)
[2024-12-17 11:55] VITALS: BP 160/83
--- NOTE | 2024-12-17 13:06 | W.DCSUMMARY ---
Discharge Summary
Discharge Data
Date of Admission: 12/04/24
Date of Discharge: 12/19/24
-
Pending Results: No
Hospital Course
74 years old female presented with weight gain, worsening edema and shortness of breath. Chest x-ray showed cardiomegaly, no clear pulmonary edema, evidence of atelectasis. She had known history of cardiomyopathy with EF 20-25% by last echo
02/02/2024. She had positive troponin consistent with nonischemic myocardial injury in setting of acute heart failure. Repeat echocardiogram 12/05/2024 showed left ventricular 25 to 30%, mild concentric LVH, global hypokinesis, MAC, mitral sclerosis
with peak/mean gradient 7/4 mmHg, moderate MR, mild , moderate AR with peak/mean gradients 23/13 mmHg, moderate to severe TR, PAP 65 to 70 mmHg, aortic root and ascending aorta dilation. She was evaluated by cardiology, started on Bumex therapy as
blood pressure tolerated. She subsequently stabilized oh Coreg 6.25mg BID, Bumex 1mg daily. She followed with Dr Willis from [facility] cardiology. There was a possibility of non compliance with her medications at home. Patient was unable to tolerate
further cardiac medications due to hypotension. She was also noted to have severe bilateral multiple lower extremity venous wounds with acute on chronic dermatitis/venous with on/ off pattern of flare-up. She was followed by wound care nurse and
responded well to local wound care. She was taking antibiotics for presumed cellulitis. Her renal function was monitored while on diuretic therapy. She was evaluated by physical therapy and case investigator. She remained hemodynamically stable and was
discharged in a stable condition.
Discharge Plan
-
Patient Disposition: Home with Home Care
Discharge Diagnosis/Procedures: Acute on chronic congestive heart failure with reduced ejection fraction
Hyponatremia
Nonischemic myocardial injury with elevation of troponin
Bilateral multiple lower extremity venous wounds/dermatitis
EZEKIEL/CKD 3B
Status post ICD 2022
GERD
Diabetes
Depression
Diabetic neuropathy
Acute hypoxic respiratory failure/possible aspiration pneumonitis
Constipation with enteritis/ileus
Diet: Diabetic, Carb Controlled
Activity Restrictions/Additional Instructions:
Wound Care Instructions Stage 1 PI sacrum- Apply barrier ointment to protect skin from incontinence. Avoid use of diapers and continue off-loading measures.
Stage 1 PI sacrum- Apply barrier ointment to protect skin from incontinence. Avoid use of diapers and continue off-loading measures.
Bilateral Legs- Aquaphor to LE daily.
Bilateral Heels - No-sting barrier and adhesive foam to heels. Change Q 3 days and PRN
L heel scabbed ulcer-clean with saline, apply no sting barrier wipe (allow to dry), apply foam dressing, change q 3 days and prn loosened dressing.
Static Air overlay or air mattress
Turning schedule
Elevete heels off bwith pillow/s
Pressure redistributing chair cushion (i.e. Air chair cushion).
Compression to LE with KALPESH, reapply daily
Follow up at wound care center call for an appointment.
Instructions: *PCP/Other Pier Master Assistant Heart Failure Instructions
Referrals:
Wm Thorpe II, DO [Non-Admitting Privileges] - 12/16/24 1:15 pm
Curry Regalado MD [Family Provider] - in less than 1 week
Prescriptions:
New
carvedilol 6.25 mg Tablet
6.25 mg PO BID Qty: 60 0RF
docusate sodium 100 mg Capsule
100 mg PO BID Qty: 60 0RF
gabapentin 300 mg Capsule
300 mg PO BID Qty: 60 0RF
polyethylene glycol 3350 17 gram Powder In Packet
17 g PO DAILY PRN (Reason: constipation) Qty: 10 0RF
acetaminophen [Tylenol Extra Strength] 500 mg Tablet
1,000 mg PO Q6HPRN PRN (Reason: fever or pain) Qty: 20 0RF
Continued
tolterodine 2 mg Capsule,Extended Release 24hr
2 mg PO BID
tizanidine 2 mg Tablet
2 mg PO TIDPRN PRN (Reason: muscle spasms)
loperamide 2 mg Capsule
2 mg PO Q4HPRN PRN (Reason: diarrhea)
ondansetron HCl 4 mg Tablet
4 mg PO Q8HPRN PRN (Reason: nausea)
ascorbic acid (vitamin C) [Vitamin C] 500 mg Tablet
500 mg PO DAILY
gabapentin 800 mg Tablet
800 mg PO QID
esomeprazole magnesium [Nexium] 40 mg Capsule,Delayed Release(Dr/Ec)
40 mg PO DAILY
budesonide [Pulmicort] 0.5 mg/2 mL Suspension For Nebulization
0.5 mg INHALATION R Q6HPRN PRN (Reason: sob)
albuterol sulfate 90 mcg/actuation Hfa Aerosol Inhaler
2 puff INHALATION R Q6HPRN PRN (Reason: sob)
fluticasone propionate 50 mcg/actuation [place],Suspension
1 spray INTRANASAL DAILYPRN PRN (Reason: allergies)
dicyclomine 10 mg Capsule
10 mg PO ACHS
magnesium oxide 250 mg magnesium Tablet
250 mg PO DAILY
cholecalciferol (vitamin D3) [Vitamin D3] 25 mcg (1,000 unit) Tablet
25 mcg PO DAILY
levocetirizine [Xyzal] 5 mg Tablet
5 mg PO HS
cyclosporine [Restasis] 10 DROPS dropperette
1 drops BOTH EYES BID
citalopram 20 MG tablet
20 mg PO DAILY Qty: 30 0RF
Changed
calcium carbonate [Calcium 600] 600 mg calcium (1,500 mg) Tablet
600 mg PO DAILY Qty: 0 0RF
bumetanide 1 mg Tablet
1 mg PO DAILY Qty: 0 0RF
Discontinued
carvedilol 3.125 mg Tablet
3.125 mg PO BID
acetaminophen [Tylenol Arthritis Pain] 650 mg Tablet Extended Release
1,300 mg PO Q8H
cephalexin 500 mg Capsule
500 mg PO TID
losartan 100 mg Tablet
100 mg PO DAILY
doxycycline hyclate 100 mg Tablet
100 mg PO BID
omeprazole magnesium [Prilosec OTC] 20 mg Tablet,Delayed Release (Dr/Ec)
20 mg PO DAILY
Entresto 49-51 mg Tablet
1 tab PO DAILY
ergocalciferol (vitamin D2) 50,000 UNITS capsule
50,000 units PO HERMAN Qty: 4 0RF
Januvia 100 MG tablet
100 mg PO DAILY Qty: 30 0RF
Discharge Orders:
Discharge Patient (As Directed); Ordered 12/16/24
Ordered By: Devonte Villarreal
Discharge Date and Time
Print Language: JAMAICAN
--- NOTE | 2024-12-17 14:48 | CM ---
CM reviewed chart, met with patient bedside with daughter Linh on speaker phone, discussed awaiting response from [facility] unable to accept, agreeable to referrals to [facility], will place in [facility].
Confirmed with daughter and patient plan remains short term rehab, not LTC. CM will continue to follow for all discharge planning needs.
Plan; additional SNF referrals sent, awaiting response from facilities.
[2024-12-17 15:00] VITALS: BP 158/81
[2024-12-17 15:11] LABS: Glucose - Point of Care 121 mg/dl (70-99)
[2024-12-17 19:51] VITALS: BP 157/84
[2024-12-17 21:17] LABS: Glucose - Point of Care 122 mg/dl (70-99)
[2024-12-17] MEDS: ZYRTEC PO (21:49)
[2024-12-17 22:26] VITALS: BP 160/87
[2024-12-18] VITALS (9 sets, daily range): BP systolic 122–165; BP diastolic 67–93; PULSE 66; O2SAT 96; BMI 22.7
[2024-12-18 07:39] LABS: Glucose - Point of Care 83 mg/dl (70-99)
[2024-12-18] MEDS: MAGNESIUM OXIDE 250 MG PO (08:00)
[2024-12-18] MEDS: DETROL LA 2 MG PO ×2 (08:00→20:03)
[2024-12-18] MEDS: RESTASIS 0.05% OPHTHALMIC EMULSION 1 DROPS BOTH EYES ×2 (08:02→20:03)
[2024-12-18] MEDS: PROTONIX 40 MG PO (08:05)
[2024-12-18] MEDS: TYLENOL 1000 MG PO ×2 (08:05→20:00)
[2024-12-18] MEDS: BUMEX 1 MG PO (08:05)
[2024-12-18] MEDS: NEURONTIN 300 MG PO ×2 (08:05→19:59)
[2024-12-18] MEDS: CELEXA 20 MG PO (08:05)
[2024-12-18] MEDS: COREG 6.25 MG PO ×2 (08:06→20:01)
[2024-12-18] MEDS: COLACE 100 MG PO (08:06)
[2024-12-18] MEDS: HEPARIN 5000 UNITS SC ×2 (08:07→20:04)
[2024-12-18] MEDS: BENTYL 10 MG PO ×4 (08:07→21:41)
[2024-12-18] MEDS: VISBIOME 1 CAP PO (08:07)
[2024-12-18] MEDS: HYDROPHOR 1 APPLIC TOPICAL (08:10)
[2024-12-18] MEDS: NOVOLOG FLEXPEN-LOW RESISTANCE SC (08:10)
--- NOTE | 2024-12-18 10:18 | W.PN.HOSP.TC ---
Today's Communication/Plan
-
dc
Assessment / Plan
Assessment / Plan
Physical exam:
General: chronically ill looking
HEENT: Normocephalic, Moist mucous membranes and Atraumatic
Respiratory: Basal crackles.
Cardiac: S1/S2 , + diastolic murmur
GI: Soft, nontender
Musculoskeletal: Edema, Right Upper Extremity and Edema, Left Lower Extremity
Neuro: Nonfocal/grossly intact
Psych: calm
Abdominal pain with distention likely secondary to enteritis/ileus and constipation
Now improving
Continue with laxatives, now had bowel movement
CT abdomen/pelvis without any obstruction, consistent with possible enteritis/ileus and constipation
lactate 2
Acute hypoxic respiratory failure likely secondary to possible aspiration pneumonitis given recent vomiting 12/09
Sepsis (fever,tachypnea) likely secondary to aspiration pneumonitis
UA normal, chest x-ray without pneumonia,BCX NGTD
Finished antibiotics
Now weaned off oxygen
Follow fever curve, COVID, flu negative
EZEKIEL on CKD3b
Creatinine slowly improving,
Discussed with cardiology, will hold Aldactone and Entresto at this time. Patient will follow-up outpatient
Suspect likely secondary to hypotension 12/09
Continue to monitor, if creatinine does not improve then will need nephrology evaluation
Bladder scan
Hold nephrotoxic agents
Acute on chronic congestive heart failure with reduced ejection fraction
Echocardiogram with EF 25%, moderate mitral regurgitation/moderate aortic regurgitation/moderate to severe tricuspid regurgitation.
s/p IV diuresis. Now on p.o. Bumex
Off Entresto & Aldactone given hypotension and EZEKIEL to be resume in OP setting. Apparently patient developed itching when she was on bilateral dose of Entresto
Coreg to 6.25 mg BID.
Does not appear to be compliant with Bumex at home
ICD interrogated by cardiology 12/05, No arrhythmia
she follows with Dr Willis from [facility] cardiology. She might change to cardiology service at dose.
Lexiscan nuclear stress test 06/07/2022: Small size defect in anterior apical wall that is fixed, resting EF 27%
#Hyponatremia
#Elevated troponin, likely secondary to nonischemic myocardial injury
No chest pain
Monitor
# S/P ICD in 2022 at [place]
# Bilateral multiple lower extremity venous wounds.
Seems consistent with dermatitis/venous- possible exfoliative type especially with chronicity( years) and on/ off pattern of flare-up
Appearance of open venous appearing wounds/macerated edges/excoriated skin with erythema and tenderness. No swelling.
Continue with wound care
She was recently started on double antibiotics course for presumed cellulitis. open wounds can have superimposed secondary/bacterial infection at times. No fever, no leukocytosis. Finished antibiotics; last day 12/07
Continue with pain control, On Gabapentin & Tylenol TID.
# Sacrum with stage 1 PI, non-blanchable red skin
Follow-up with wound care upon DC
# Hyponatremia
#GERD
Protonix
Diabetes mellitus
remains diet controlled.
Patient was on Januvia. Not preferred in heart failure patients.
Insulin sliding scale, Accu-Cheks
a1C 7.1
History of colon cancer status post resection
History of ostomy with reversal
History of SBO
Depression
Per caseworker protective services, outpatient VN called mobile crisis since patient had suicidal ideation. Currently she denies suicidal ideation. Evaluated by psychiatry and has been cleared.
Continue Celexa
# Diabetic neuropathy, continue with gabapentin
DVT prophylaxis
Lovenox
Full code
Total time spent to see the patient, examine the patient, review data and lab results, discuss plan with patient and nursing staff around 45 minutes
Anticipated Discharge: Today
Subjective/Interval History
-
Date of Service: December 18, 2024
No complaints
Objective Data
-
Vital Signs:
Vital Signs
Temp Pulse Resp BP Pulse Ox
97.6 F 73 20 165/93 99
12/18/24 07:30 12/18/24 07:30 12/18/24 07:30 12/18/24 07:30 12/18/24 08:00
I&O
12/17/24 12/18/24 12/19/24
06:59 06:59 06:59
Intake Total 720 / 720 720 / 720
Balance 720 / 720 720 / 720
[2024-12-18 12:07] LABS: Glucose - Point of Care 170 mg/dl (70-99)
[2024-12-18] MEDS: NOVOLOG FLEXPEN-LOW RESISTANCE 1 UNITS SC (12:11)
--- NOTE | 2024-12-18 12:52 | CM ---
Chart reviewed for d/c planning. Patient is stable for d/c to SNF. Difficult placement as patient was non-compliant w/ HC prior to d/c, cluttered home, and suicidal thoughts previously. Multiple referrals placed and unable to accept patient due to
no bed availability and/or due concerns noted above. CM spoke w/ patient's daughter, Linh, explaining the need to consider other SNF options vs patient d/c home w/ new provider. Linh agreeable to consider [facility].
Linh also inquired about [facility], informed that they generally do not take outside referrals and their rehab is primarily for their residents per [facility] admissions. CM placed additional referrals to [facility]. Linh
started to hold off on any other additional referrals. Linh will consider either [facility] or [facility] if patient is unable to be accepted to a facility. Linh shared she has concerns of patient going home by herself as she has a split level home and
has not ascended stairs in weeks.
Plan: SNF vs home w/ HC
--- NOTE | 2024-12-18 14:37 | WOUNDNOTE ---
[facility] RN NOTE: Patient visited to follow up on lower leg wounds. Bilateral legs are now healed, will update orders and discharge orders and notify CM. Mineral oil and KALPESH wrapped applied to bilateral LE. Left scabbed heel ulcer stable. No-sting
barrier and adhesive foam applied to heels. Sacrum with stage 1 PI, barrier ointment applied. Air overlay properly inflated. Patient given air cushion. Patient reports good appetite and demonstrates ability to turn in bed and transfer self from bed
to chair with walker. Plan is for discharge to home or SNF. Will sign off.
--- NOTE | 2024-12-18 14:40 | WOUNDNOTE ---
BILATERAL LOWER LEGS
--- NOTE | 2024-12-18 14:40 | WOUNDNOTE ---
RIGHT LATERAL LOWER LEG
--- NOTE | 2024-12-18 14:42 | WOUNDNOTE ---
RIGHT LOWER LEG(INNER)
--- NOTE | 2024-12-18 14:42 | WOUNDNOTE ---
LEFT ANTERIOR LOWER LEG
--- NOTE | 2024-12-18 14:44 | WOUNDNOTE ---
RIGHT MEDIAL ANKLE
--- NOTE | 2024-12-18 14:44 | WOUNDNOTE ---
RIGHT LOWER POSTERIOR LEG
[2024-12-18 17:01] LABS: Glucose - Point of Care 150 mg/dl (70-99)
[2024-12-18 21:44] LABS: Glucose - Point of Care 111 mg/dl (70-99)
[2024-12-19 03:20] VITALS: BP 147/82
[2024-12-19 05:35] VITALS: BMI 22.2
[2024-12-19 07:17] LABS: Glucose - Point of Care 92 mg/dl (70-99)
[2024-12-19 07:30] VITALS: BP 152/86
[2024-12-19] MEDS: TYLENOL 1000 MG PO (08:00)
[2024-12-19] MEDS: NEURONTIN 300 MG PO (08:00)
[2024-12-19] MEDS: COREG 6.25 MG PO (08:00)
[2024-12-19] MEDS: CELEXA 20 MG PO (08:01)
[2024-12-19] MEDS: BUMEX 1 MG PO (08:01)
[2024-12-19] MEDS: DETROL LA 2 MG PO (08:01)
[2024-12-19] MEDS: PROTONIX 40 MG PO (08:01)
[2024-12-19] MEDS: HEPARIN 5000 UNITS SC (08:02)
[2024-12-19] MEDS: VISBIOME 1 CAP PO (08:02)
[2024-12-19] MEDS: BENTYL 10 MG PO ×3 (08:13→17:01)
[2024-12-19] MEDS: RESTASIS 0.05% OPHTHALMIC EMULSION 1 DROPS BOTH EYES (08:13)
[2024-12-19] MEDS: HYDROPHOR 1 APPLIC TOPICAL (08:14)
[2024-12-19] MEDS: MAGNESIUM OXIDE PO (08:19)
--- NOTE | 2024-12-19 09:25 | CM ---
Chart reviewed for d/c planning. CM placed additional SNF referrals yesterday to [facility] as requested by patient's daughter, Linh.
Spoke w/ [facility], unable to accept due to no bed availability
Spoke w/ [facility], unable to accept due to suicidal thoughts and home situation
CM spoke w/ Linh, to update on SNF determinations. Linh agreed for patient to d/c home w/ HC. Linh stated patient mentioned [facility] as preferred provider, CM placed referral in [facility].
Linh stated she will have to ask her sister if she's able to pick patient up today as she herself has appointments today. Probably would not be until after 4pm, Linh stated she will let confirm w/ CM once she hears back from her sister.
Plan: Home w/ [facility]
--- NOTE | 2024-12-19 11:11 | W.PN.HOSP.TC ---
Today's Communication/Plan
-
dc
Assessment / Plan
Assessment / Plan
Physical exam:
General: chronically ill looking, not in distress
HEENT: Normocephalic, Moist mucous membranes and Atraumatic
Respiratory: Basal crackles.
Cardiac: S1/S2 , + diastolic murmur
GI: Soft, nontender, not distended
Musculoskeletal: Edema, Right Upper Extremity and Edema, Left Lower Extremity
Neuro: Nonfocal/grossly intact, she follows commands, AAOX3 ,
Psych: calm, pleasant and no confusion
Abdominal pain with distention likely secondary to enteritis/ileus and constipation
Resolved, tolerated diet
Continue with laxatives, now had bowel movement
CT abdomen/pelvis without any obstruction, consistent with possible enteritis/ileus and constipation
Acute hypoxic respiratory failure likely secondary to possible aspiration pneumonitis given recent vomiting 12/09
Sepsis (fever,tachypnea) likely secondary to aspiration pneumonitis
UA normal, chest x-ray without pneumonia,BCX NGTD
Finished antibiotics
Now weaned off oxygen no cough or shortness of breath even on ambulation,
Follow fever curve, COVID, flu negative
EZEKIEL on CKD3b
Creatinine slowly improving, creatinine stabilized between 1.5-1.2
Discussed with cardiology, stop Aldactone and Entresto at this time. Patient will follow-up outpatient
Suspect likely secondary to hypotension 12/09
Bladder scan protocol with no retention.
Acute on chronic congestive heart failure with reduced ejection fraction
Echocardiogram with EF 25%, moderate mitral regurgitation/moderate aortic regurgitation/moderate to severe tricuspid regurgitation.
s/p IV diuresis. Now on p.o. Bumex
Off Entresto & Aldactone given hypotension and EZEKIEL to be resume in OP setting. Apparently patient developed itching when she was on bilateral dose of Entresto
Coreg to 6.25 mg BID.
Does not appear to be compliant with Bumex at home
ICD interrogated by cardiology 12/05, No arrhythmia
she follows with Dr Willis from [facility] cardiology. She might change to cardiology service at dose.
Lexiscan nuclear stress test 06/07/2022: Small size defect in anterior apical wall that is fixed, resting EF 27%
#Hyponatremia
#Elevated troponin, likely secondary to nonischemic myocardial injury
No chest pain
# S/P ICD in 2022 at [facility]
# Bilateral multiple lower extremity venous wounds.
Seems consistent with dermatitis/venous- possible exfoliative type especially with chronicity( years) and on/ off pattern of flare-up
Appearance of open venous appearing wounds/macerated edges/excoriated skin with erythema and tenderness. No swelling.
Continue with wound care
She was recently started on double antibiotics course for presumed cellulitis. open wounds can have superimposed secondary/bacterial infection at times. No fever, no leukocytosis. Finished antibiotics; last day 12/07
Continue with pain control, On Gabapentin & Tylenol changed to twice daily or as needed
Discussed with wound care on 12/18: Bilateral leg wounds healing well
# Sacrum with stage 1 PI, non-blanchable red skin
Follow-up with wound care upon DC
# Hyponatremia
#GERD
Protonix
Diabetes mellitus
remains diet controlled.
Patient was on Januvia. Not preferred in heart failure patients.
Insulin sliding scale, Accu-Cheks. Stopped sliding scale as patient did not reach threshold to receive insulin, patient requested to stop close monitoring.
a1C 7.1
History of colon cancer status post resection
History of ostomy with reversal
History of SBO
No abdominal pain, tolerated diet well
Depression
Per director of casework services, outpatient [facility] called [facility] since patient had suicidal ideation. Currently she denies suicidal ideation. Evaluated by psychiatry and has been cleared.
Mood is cooperative and pleasant with staff. Patient denies suicidal or homicidal thoughts.
Continue Celexa
# Diabetic neuropathy, continue with gabapentin
DVT prophylaxis
Heparin SQ
Full code
Discharge planning, discussed with director of casework services. Patient# was unable to get bed available and desired [facility]p facilities she and her daughter wanted. Patient has been independent and able to ambulate. Discharge patient home with home
health service
Total discharge time spent to see the patient, examine the patient, review data and lab results, discuss discharge plan with patient and nursing staff around 65 minutes
Anticipated Discharge: Today
Subjective/Interval History
-
Date of Service: December 19, 2024
She is feeling better, she is walking around and in the hallways without shortness of breath or dizziness using walker.
Objective Data
-
Vital Signs:
Vital Signs
Temp Pulse Resp BP Pulse Ox
98.4 F 71 20 152/86 98
12/19/24 07:30 12/19/24 07:30 12/19/24 07:30 12/19/24 07:30 12/19/24 07:30
I&O
12/18/24 12/19/24 12/20/24
06:59 06:59 06:59
Intake Total 720 / 720 840 / 840
Balance 720 / 720 840 / 840
[2024-12-19 11:59] VITALS: BP 153/79
--- NOTE | 2024-12-19 13:09 | VNURNOTE ---
Home Health Liaison met with patient at bedside to discuss [facility] nurse/therapy, visits, schedule and homebound status. Patient is agreeable and understands that visits at home will be 2-3 x per week to assess and teach medical management. Patient
with history of non-compliance with Dr follow ups. This author instructed patient that [facility] cannot start services until she is seen by PCP. (Confirmed with PCP office of Dr Curry Regalado that he will not sign orders until seen in his office).
Provided patient with [facility] contact information. Advised patient to contact [facility] after seen by PCP. Supervisor Backfilling and CM aware. Patient aware and agreeable that [facility] services will start once seen by PCP.
[facility] referral completed in [facility].
[2024-12-19 16:25] VITALS: BP 150/90
--- NOTE | 2024-12-20 09:21 | W.HF.CON ---
Heart Failure
- LV Function
Left ventricular function study result: LV Ejection fraction </= 35%
Ejection Fraction Percentage: 25-30
- ARNI
Patient already on ARNI: No
Heart Failure ARNI Contraindication: Acute Renal Failure
- ACEI/ARB
Patient already on ACEI/ARB: No
Heart Failure ACEI/ARB Contraindication: Acute Renal Failure
- Beta Cassie
Patient already on Evidence Based Beta Cassie: Yes
- Mineralocorticord Receptor Antagonist
Patient already on MRA: No
Heart Failure MRA Contraindication: Acute Renal Insufficiency
- SGLT-2 Inhibitor
Patient already on SGLT-2 Inhibitor: No
Heart Failure SGLT-2 Inhibitor Contraindication: Patient Refusal (EZEKIEL)
- NYHA CHF Classification
NYHA CHF Classification Level: Class III - Symptoms w/ min exertion, interferes w/ nml daily activity
- ACC/AHA Stage
ACC/AHA Stage: Stage C: Symptomatic Heart Failure
== END 2024-12-19 18:31 | disposition home health service (06) | DRG 291 ==
LOC: 4 WEST ACU 21:31
PROVIDERS: Emergency Medicine; Internal Medicine; Internal Medicine Cardiovascular Disease; ADMITTING PHYSICIAN Internal Medicine; ATTENDING PHYSICIAN Internal Medicine; CONSULT PHYSICIAN Internal Medicine Cardiovascular Disease; EMERGENCY PHYSICIAN Emergency Medicine; FAMILY PHYSICIAN Internal Medicine; OTHER PHYSICIAN Psychiatry & Neurology Psychiatry
PROC: 4B02XTZ Measurement of Cardiac Defibrillator, External Approach (ICD-10-PCS; 2024-12-05)
DX: I13.0 Hypertensive heart and chronic kidney disease with heart failure and stage 1 through stage 4 chronic kidney disease, or unspecified chronic kidney disease (principal); A41.9 Sepsis, unspecified organism; I50.23 Acute on chronic systolic (congestive) heart failure; J69.0 Pneumonitis due to inhalation of food and vomit; J96.01 Acute respiratory failure with hypoxia; E87.1 Hypo-osmolality and hyponatremia; N17.9 Acute kidney failure, unspecified; L03.90 Cellulitis, unspecified; K56.7 Ileus, unspecified; R45.851 Suicidal ideations; I42.9 Cardiomyopathy, unspecified; I5A Non-ischemic myocardial injury (non-traumatic); E11.40 Type 2 diabetes mellitus with diabetic neuropathy, unspecified; Z87.891 Personal history of nicotine dependence; N18.32 Chronic kidney disease, stage 3b; E11.22 Type 2 diabetes mellitus with diabetic chronic kidney disease; I44.30 Unspecified atrioventricular block; Z95.810 Presence of automatic (implantable) cardiac defibrillator; E78.5 Hyperlipidemia, unspecified; Z79.84 Long term (current) use of oral hypoglycemic drugs; K21.9 Gastro-esophageal reflux disease without esophagitis; F32.A Depression, unspecified; L89.151 Pressure ulcer of sacral region, stage 1; I95.9 Hypotension, unspecified; Z11.52 Encounter for screening for COVID-19; Z79.899 Other long term (current) drug therapy; Z82.49 Family history of ischemic heart disease and other diseases of the circulatory system; Z91.148 Patient's other noncompliance with medication regimen for other reason; L30.9 Dermatitis, unspecified
CPT/HCPCS: 70450; 71045; 71046; 73110; 74176; 80048; 80053; 81003; 81015; 82962; 83036; 83605; 83880; 84484; 85025; 85027; 87040; 87070; 87502; 87811; 93005; 93306; 96374; 97116; 97162; 97166; 97530; 97535; 99285

== ENCOUNTER → 2025-02-07 17:41 | Outpatient (REF) | payer MEDICARE, OTHER, SELFPAY ==
[2025-02-07 18:18] LABS: Blood Urea Nitrogen 43 mg/dl (7-17); Calcium 8.7 mg/dl (8.4-10.2); Carbon Dioxide 31 mmol/L (22-30); Chloride 107 mmol/L (98-107); Glucose 111 mg/dl (70-99); Sodium 144 mmol/L (135-145); eGFR 59.86
[2025-02-07 18:28] LABS: NT-proBNP 19600 pg/ml
== END ==
LOC: CLAB 17:41
PROVIDERS: ATTENDING PHYSICIAN Internal Medicine
DX: I13.0 Hypertensive heart and chronic kidney disease with heart failure and stage 1 through stage 4 chronic kidney disease, or unspecified chronic kidney disease (principal)
CPT/HCPCS: 36415; 80048; 83880